=== PATIENT | male | born 1960 | race Caucasian/White ===

== ENCOUNTER 2024-02-03 14:19 | Inpatient (IN) ==
[2024-02-03] MEDS: SODIUM CHLORIDE 0.9% 500 ML IV STA (14:55)
[2024-02-03 14:59] LABS: Basophils # (auto) 0.03 K/uL (0.00-0.20); Basophils % (auto) 0.3 %; Eosinophils # (auto) 0.08 K/uL (0.00-0.50); Eosinophils % (auto) 0.9 %; Hematocrit (blood only) 35.9 % (42.0-52.0); Hemoglobin 11.6 g/dl (14.0-18.0); Immature Granulocytes # (auto) 0.04 K/uL (0.01-0.20); Immature Granulocytes % (auto) 0.4 %; Lymphocytes # (auto) 1.44 K/uL (1.20-3.40); Lymphocytes % (auto) 16.2 %; Mean Corpuscular Hemoglobin 27.8 pg (25.0-34.0); Mean Corpuscular Hgb Conc 32.3 g/dL (32.0-36.0); Mean Corpuscular Volume 85.9 fL (80.0-100.0); Mean Platelet Volume 10.2 fL (9.4-12.4); Monocytes # (auto) 1.13 K/uL (0.11-0.59); Monocytes % (auto) 12.7 %; Neutrophils # (auto) 6.18 K/uL (1.40-6.50); Neutrophils % (auto) 69.5 %; Platelet Count 229 K/uL (130-400); RDW Standard Deviation 44.1 fL (36.4-46.3); Red Blood Count 4.18 M/uL (4.70-6.10)
[2024-02-03 15:25] LABS: Albumin Globulin Ratio 1.3 (0.9-2); Albumin Level 4.1 gm/dl (3.4-5.0); BUN Creatinine Ratio 19.5 (10-20); Bilirubin,Total 0.4 mg/dl (0.2-1.0); Calcium 9.7 mg/dl (8.6-10.3); Creatinine Clr Calc Pharmacy 72.5 ml/min; Est GFR (African American) 69.1 ml/min; Est GFR (Non-African American) 59.6 ml/min; Globulin 3.2 gm/dl (2.5-4.0); Potassium 4.4 mmol/L (3.5-5.1); Total Protein 7.3 gm/dl (6.0-8.3)
[2024-02-03] MEDS: OPTIRAY 320 100ml IV ONE (15:29)
--- NOTE | 2024-02-03 16:00 | CT Scan Report ---
CT abd pelvis IV con only CLINICAL HISTORY: gall stones, pain TECHNIQUE: Helical axial images of the abdomen and pelvis were obtained and displayed. Automated dose lowering techniques and/or adjustment according to patient size were utilized for this exam. This e xam was performed with intravenous contrast. CT DOSE: 1495.51 mGy.cm COMPARISON: None available at the time of this dictation. FINDINGS: Lower chest: Focal airspace opacities are seen. There is bronchial wall thickening. Liver: Unremarkable. No focal lesions are seen. Gallbladder and biliary tree: No calcified gallstones. Normal caliber wall. No intra- or extrahepatic biliary ductal dilation. Pancreas: Unremarkable, no focal lesions. Spleen: Unremarkable. Adrenals: Unremarkable. Kidneys and ureters: A 4 mm obstructive stone is in the right proximal ureter with associated hydrone phrosis. Nonobstructive stones are seen bilaterally. Bladder: Limited evaluation due to underdistention. Reproductive organs: Unremarkable. Bowel: Diverticulosis is seen without diverticulitis. The appendix is normal. Lymph nodes Retroperitoneal: Unremarkable. Pelvic: Unremarkable. Mesenteric: Unremarkable. Peritoneum: Normal. Vessels: Atherosclerotic calcifications are seen. Abdominal wall: Bilateral fat-containing inguinal hernias are seen. Bones: Degenerative changes in the visualized spine. IMPRESSION: 1. Obstructive stone is seen in the right proximal ureter with associated hydronephrosis. 2. Diverticulosis without diverticulitis. ACT 112: Negative or not required by law. Electronically signed by: George Davis M.D. 02/03/2024 3:59 PM
[2024-02-03 16:01] LABS: Appearance Urine Clear (Clear); Bacteria Urine Automated Negative (Negative); Bilirubin Urine Negative (Negative); Blood Urine 1+ (Negative); Color Urine Dark Yellow; Glucose Urine UA Negative (Negative); Ketones Urine Negative (Negative); Leukocyte Esterase Urine Negative (Negative); Nitrite Urine Negative (Negative); Protein Urine Negative (Negative); Specific Gravity Urine 1.025 (1.000-1.030); Urobilinogen Urine Negative (Negative); pH Urine 5.5 (4.5-7.5)
--- NOTE | 2024-02-03 16:03 | XRay Report ---
XR chest 1V portable HISTORY: hypotension, abd pain COMPARISON: Chest 11/16/2018. FINDINGS: No pneumothorax. No pleural effusions. The cardiac silhouette is normal in size. No evidenc e for pulmonary edema. Degenerative changes within the shoulders. No acute fractures. There is a new left basilar airspace opacity. This likely represents a pneumonia. IMPRESSION: A new left basilar airspace opacity likely representing a pneumonia. 1-2 month chest x-ray follow-up recommended to ensure resolution. ACT 112: Negative or not required by law. Electronically signed by: Vidal Soto M.D. 02/03/2024 4:02 PM
[2024-02-03 16:12] LABS: Troponin I High Sensitivity 4.7 pg/ml (0-20)
--- NOTE | 2024-02-03 16:33 | Emergency Department Note ---
Impression & Plan Pneumonia, Ureterolithiasis ED Provider Note NAME: LELE CARROLL Jr AGE: 63 SEX: Male INFORMANT: Patient and significant other ED PROVIDER(S): Pablo Forde MD CHIEF COMPLAINT: Low blood pressure, right flank pain, referred by cardiology PLAN: Disposition: Admitted Outpatient prescription management: none Referral: None MEDICAL DECISION MAKING: Patient presented and was evaluated. CT imaging was ordered. Blood work obtained. Patient had blood cultures done as well as a bio fire test. Chest x- ray was concerning for infiltrate consistent with pneumonia. Patient has had a cough. Patient was given IV Rocephin and doxycycline after discussion with ED pharmacist. Patient was hydrated. Patient does have a right-sided kidney stone with hydro. Laboratory testing was otherwise unremarkable. Patient will need further management in the hospital. Lactate was noted to be negative. Consultation was [facility] with the [facility]. Patient was evaluated in the ER admitted for further management. Care/management discussed with: senior online marketing manager, ED pharmacist Level of care consideration(s): After review of the information above and other included data, I feel the patient requires escalation of care to admission Triage Nursing notes: reviewed and agree them. Vital Signs: reviewed and remarkable for no significant abnormalities Additional History obtained from: Patient significant other. She notes he has had to have a cough for about 3 days. Chronic Medical/Social Conditions affecting care: Cardiomyopathy Prior/ Outside/ External records reviewed: none Differential Diagnosis: Renal colic, UTI, appendicitis, diverticulitis, mesenteric ischemia, aortic pathology, infections, inflammatory bowel disease, PUD, biliary pathology, pneumonia, cardiac sources, sepsis as well as other pathologies. Diagnostics, independently interpreted by me: ECG: none Cardiac Monitoring: Cardiac monitoring ordered by me: The patient was placed on continuous cardiac monitoring and observed. It revealed a normal sinus rhythm at 80 beats per minute without ectopy or evidence of dysrhythmia. Medical decision rules: none Imaging studies: Chest x-ray shows left lower lobe infiltrate. CT scan abdomen pelvis reveals right ureteral stone. HPI: 63 year old Male arrives for evaluation of low blood pressure and right flank pain. Patient was in the cardiology clinic and was undergoing preop evaluation. He has a known right-sided kidney stone. Patient has had pulmonary symptoms of cough and feeling feverish for the last 3 days. He states he had a negative workup 2 days ago at [facility]. Patient was in the office and cardiology was concerned about low blood pressure. Patient was admitting to night sweats. He was referred to the ER for further evaluation and admission. Pt denies LOC, headache, visual changes, neck pain, chest pain, breathing difficulties, nausea, vomiting, melena, hematochezia, urinary symptoms, numbness, weakness, lymphadenopathy, rash, or other complaints. PAST MEDICAL HISTORY: See Below, cardiomyopathy PAST SURGICAL HISTORY: See Below, SOCIAL HISTORY: See Below, non-smoker HOME MEDICATIONS: See Below ALLERGIES: See Below VITALS: See Below PHYSICAL EXAMINATION: GENERAL: Awake, alert, well-appearing, in no distress HENT: Normocephalic, atraumatic. Oropharynx unremarkable. EYES: Normal conjunctiva. Sclera non-icteric. NECK: Inspection normal. Non-tender. Supple. No nuchal rigidity. FROM. No masses. RESPIRATORY: Rhonchi and few crackles noted in both bases. Worse on the left. Normal respiratory effort. CARDIAC: Normal rate. Normal rhythm. No murmurs. No rubs. Extremities warm and well perfused. Pulses equal. No JVD. GI: Soft, non-distended. Right flank tenderness to palpation. No rebound or guarding. No masses. RECTAL: Deferred. MUSCULOSKELETAL: Atraumatic. Chest examination reveals no tenderness. The back is symmetrical on inspection without obvious abnormality. There is no CVA tenderness to palpation. No joint edema. LOWER EXTREMITIES: Calves are equal size bilaterally and non-tender. No edema. No discoloration. NEURO: Normal sensorium. No sensory or motor deficits noted. SKIN: No rash or jaundice noted. 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 Dyslipidemia Ureterolithiasis Surgical History H/O laminectomy History of rotator cuff surgery Family History Other Diabetes Heart disease Social History Smoking Status: Former smoker Second Hand Exposure: No; Do You Dip or Chew Tobacco: No; Hx Alcohol Use: No Hx Substance Use: No Preferred Language: Kazakh Communication Ability: Effective Front End Ui Developer Required: No Beliefs That Will Affect Care: None Current Living Situation: Spouse Other Information That Helps Us Care for You: No Feels Safe at Home: Yes Safety Concerns: Feels Safe At This Time Assistive Devices: Glasses Allergies Allergies Allergy/AdvReac Type Severity Reaction Status Date / Time acetaminophen [From Vicodin] Allergy Intermediate Gastrointestinal Verified 11/16/18 15:07 Upset atorvastatin [From Lipitor] Allergy Intermediate MUSCLE Verified 11/16/18 15:07 ACHES hydrocodone [From Vicodin] Allergy Intermediate Gastrointestinal Verified 11/16/18 15:07 Upset simvastatin [From Zocor] Allergy Intermediate MUSCLE Verified 11/16/18 15:07 ACHES Home Meds Home Medications Medication Instructions Recorded Confirmed aspirin 81 mg tablet,delayed 81 mg PO DAILY 11/16/18 02/03/24 release (Aspir-) carvedilol 3.125 mg tablet 3.125 mg PO BID 11/16/18 02/03/24 cyanocobalamin (vitamin B-12) 1,000 mcg PO DAILY 11/16/18 02/03/24 1,000 mcg tablet (Vitamin B-12) fenofibrate nanocrystallized 145 145 mg PO QAM 11/16/18 02/03/24 mg tablet lisinopril 10 mg tablet 10 mg PO QAM 11/16/18 02/03/24 omega [id number]-[id number]-[id number]-fish oil 1,000 mg 0 mg PO DAILY 11/16/18 02/03/24 (120 mg-180 mg) capsule (Fish Oil) rosuvastatin 5 mg tablet 20 mg PO QAM 11/16/18 02/03/24 Vitamin C See Rx Instructions .Route .COMPLEX 02/03/24 02/03/24 Vitamin D3 See Rx Instructions .Route .COMPLEX 02/03/24 02/03/24 famotidine 20 mg tablet 20 mg PO BID 02/03/24 02/03/24 ondansetron 4 mg disintegrating 4 mg PO Q8H PRN N/V 02/03/24 02/03/24 tablet oxycodone-acetaminophen 5 mg-325 1 tab PO Q4H PRN Pain, Severe 02/03/24 02/03/24 mg tablet sucralfate 1 gram tablet 1 g PO TID 02/03/24 02/03/24 tamsulosin 0.4 mg capsule 0.4 mg PO DAILY 02/03/24 02/03/24 Results & Data (ED) Vital Signs Vital Signs - 24 hr 02/03/24 14:24 02/03/24 15:45 02/03/24 15:45 Temperature 35.9 C L Temperature Source Temporal Artery Scan Pulse Rate 83 76 Pulse Rate [Apical] 77 Pulse Rhythm Regular Respiratory Rate 16 18 Respiratory Effort / Characteristics Non-Labored Spontaneous Non-Labored Respiratory Depth Normal Normal Respiratory Pattern Regular Blood Pressure 115/66 Blood Pressure [Right Arm] 116/77 Blood Pressure Mean 82 Blood Pressure Mean [Right Arm] 90 Pulse Oximetry 97 97 97 Oxygen Delivery Method Room Air Room Air Room Air Sepsis Recent Fever Within 48 Hours No Sepsis New/Unexplained Change in Mental Status N/A Sepsis Action Taken by Nursing No Action Required 02/03/24 16:57 02/03/24 17:14 Temperature Temperature Source Pulse Rate 76 Pulse Rate [Apical] 78 Pulse Rhythm Respiratory Rate 18 Respiratory Effort / Characteristics Non-Labored Respiratory Depth Normal Respiratory Pattern Blood Pressure Blood Pressure [Right Arm] 103/48 L Blood Pressure Mean Blood Pressure Mean [Right Arm] 66 Pulse Oximetry 96 Oxygen Delivery Method Room Air Sepsis Recent Fever Within 48 Hours Sepsis New/Unexplained Change in Mental Status Sepsis Action Taken by Nursing Laboratory Data 02/03/24 14:41 02/03/24 14:41 Lab Results 02/03/24 02/03/24 02/03/24 Range/Units 14:41 15:23 16:10 WBC 8.90 (4.8-10.8) K/ul RBC 4.18 L (4.70-6.10) M/uL Hgb 11.6 L (14.0-18.0) g/dl Hct 35.9 L (42.0-52.0) % MCV 85.9 (80.0-100.0) fL MCH 27.8 (25.0-34.0) pg MCHC 32.3 (32.0-36.0) g/dL RDW Std Deviation 44.1 (36.4-46.3) fL RDW Coeff of Johny 14.0 (11.5-14.5) % Plt Count 229 (130-400) K/uL MPV 10.2 (9.4-12.4) fL Immature Gran % (Auto) 0.4 % Neut % (Auto) 69.5 % Lymph % (Auto) 16.2 % [place] % (Auto) 12.7 % Eos % (Auto) 0.9 % Baso % (Auto) 0.3 % Neut # (Auto) 6.18 (1.40-6.50) K/uL Lymph # (Auto) 1.44 (1.20-3.40) K/uL [place] # (Auto) 1.13 H (0.11-0.59) K/uL Eos # (Auto) 0.08 (0.00-0.50) K/uL Baso # (Auto) 0.03 (0.00-0.20) K/uL Immature Gran # (Auto) 0.04 (0.01-0.20) K/uL Sodium 141 (136-145) mmol/L Potassium 4.4 (3.5-5.1) mmol/L Chloride 106 (98-107) mmol/L Carbon Dioxide 28 (21-32) mmol/L Anion Gap 7 (3-11) BUN 25 H (6-23) mg/dl Creatinine 1.28 (0.6-1.4) mg/dl Est Cr Clr Drug Dosing 72.5 ml/min Est GFR ( Amer) 69.1 ml/min Est GFR (Non-Af Amer) 59.6 ml/min BUN/Creatinine Ratio 19.5 (10-20) Glucose 79 (70-99(Fasting)) mg/dl Lactate 0.7 (0.4-2.0) mmol/L Calcium 9.7 (8.6-10.3) mg/dl Total Bilirubin 0.4 (0.2-1.0) mg/dl AST 17 (13-39) U/L ALT 24 (7-52) U/L Alkaline Phosphatase 46 (34-104) U/L Troponin I High Sens 4.7 (0-20) pg/ml Total Protein 7.3 (6.0-8.3) gm/dl Albumin 4.1 (3.4-5.0) gm/dl Globulin 3.2 (2.5-4.0) gm/dl Albumin/Globulin Ratio 1.3 (0.9-2) Lipase 21 (11-82) U/L Procalcitonin 0.09 (0-0.5) ng/ml Urine Color Dark Yellow Urine Appearance Clear (Clear) Urine pH 5.5 (4.5-7.5) Ur Specific [place] 1.025 (1.000-1.030) Urine Protein Negative (Negative) Urine Glucose (UA) Negative (Negative) Urine Ketones Negative (Negative) Urine Blood 1+ H (Negative) Urine Nitrite Negative (Negative) Urine Bilirubin Negative (Negative) Urine Urobilinogen Negative (Negative) Ur Leukocyte Esterase Negative (Negative) Urine WBC (Auto) 1-5 (0-5) /hpf Urine RBC (Auto) 10-30 H (0-4) /hpf U Hyaline Cast (Auto) 1-5 (0-5) /lpf U Epithel Cells (Auto) 5-10 H (0-5) /lpf Urine Bacteria (Auto) Negative (Negative) Administered Medications Carvedilol (Carvedilol 3.125 Mg Tab) 3.125 mg PO BID LAISHA Stop: 03/04/24 21:29 Last Admin: 02/03/24 22:22 Dose: 3.125 mg Documented By: MED Guaifenesin (Guaifenesin 600 Mg Tabcr) 600 mg PO Q12 LAISHA Stop: 03/04/24 21:19 Last Admin: 02/03/24 22:21 Dose: 600 mg Documented By: MED Sodium Chloride (Nss) 500 mls @ 100 mls/hr IV .Q5H LAISHA Stop: 02/04/24 02:13 Last Admin: 02/03/24 22:21 Dose: 100 mls/hr Documented By: MED Sucralfate (Sucralfate 1 Gm Tab) 1 gm PO TID LAISHA Stop: 03/04/24 21:24 Last Admin: 02/03/24 22:22 Dose: 1 gm Documented By: MED Discontinued Medications Sodium Chloride (Nss) 500 mls @ 999 mls/hr IV .Q31M STA Stop: 02/03/24 15:23 Last Infusion: 02/03/24 15:49 Dose: Infused Documented By: Admin: 02/03/24 14:55 Dose: 999 mls/hr Documented By: MWS Ceftriaxone Sodium (Rocephin) 2,000 mg in 50 mls @ 100 mls/hr IV NOW STA Stop: 02/03/24 16:43 Last Infusion: 02/03/24 17:14 Dose: Infused Documented By: Admin: 02/03/24 16:40 Dose: 100 mls/hr Documented By: JOSE Doxycycline Hyclate 100 mg/ (Dextrose) 100 mls @ 50 mls/hr IV NOW STA Stop: 02/03/24 18:13 Last Admin: 02/03/24 17:15 Dose: 50 mls/hr Documented By: JOSE Ioversol (Optiray 320 100ml) 90 ml IV ONCE ONE Stop: 02/03/24 15:30 Last Admin: 02/03/24 15:29 Dose: 90 ml Documented By: CHIP Imaging Data Radiologist's Impression: Abdomen/Pelvis CT 02/03/24 14:47 CT abd pelvis IV con only CLINICAL HISTORY: gall stones, pain TECHNIQUE: Helical axial images of the abdomen and pelvis were obtained and displayed. Automated dose lowering techniques and/or adjustment according to patient size were utilized for this exam. This exam was performed with intravenous contrast. CT DOSE: 1495.51 mGy.cm COMPARISON: None available at the time of this dictation. FINDINGS: Lower chest: Focal airspace opacities are seen. There is bronchial wall thickening. Liver: Unremarkable. No focal lesions are seen. Gallbladder and biliary tree: No calcified gallstones. Normal caliber wall. No intra- or extrahepatic biliary ductal dilation. Pancreas: Unremarkable, no focal lesions. Spleen: Unremarkable. Adrenals: Unremarkable. Kidneys and ureters: A 4 mm obstructive stone is in the right proximal ureter with associated hydronephrosis. Nonobstructive stones are seen bilaterally. Bladder: Limited evaluation due to underdistention. Reproductive organs: Unremarkable. Bowel: Diverticulosis is seen without diverticulitis. The appendix is normal. Lymph nodes Retroperitoneal: Unremarkable. Pelvic: Unremarkable. Mesenteric: Unremarkable. Peritoneum: Normal. Vessels: Atherosclerotic calcifications are seen. Abdominal wall: Bilateral fat-containing inguinal hernias are seen. Bones: Degenerative changes in the visualized spine. IMPRESSION: 1. Obstructive stone is seen in the right proximal ureter with associated hydronephrosis. 2. Diverticulosis without diverticulitis. ACT 112: Negative or not required by law. Electronically signed by: George Davis M.D. 02/03/2024 3:59 PM Chest X-Ray 02/03/24 15:41 XR chest 1V portable HISTORY: hypotension, abd pain COMPARISON: Chest 11/16/2018. FINDINGS: No pneumothorax. No pleural effusions. The cardiac silhouette is normal in size. No evidence for pulmonary edema. Degenerative changes within the shoulders. No acute fractures. There is a new left basilar airspace opacity. This likely represents a pneumonia. IMPRESSION: A new left basilar airspace opacity likely representing a pneumonia. 1-2 month chest x-ray follow-up recommended to ensure resolution. ACT 112: Negative or not required by law. Electronically signed by: Vidal Soto M.D. 02/03/2024 4:02 PM Discharge Plan Visit Data Chief Complaint: Referred by Doctor Stated Complaint: KIDNEY STONES, GALL STONES, LOW BP ED Provider: Pablo Forde Discharge Problem: Pneumonia, Ureterolithiasis Patient Disposition: Admitted As Inpatient Discharge Instructions Interventions: ED Discharge Assessment Last Done: 02/03/24 18:58
[2024-02-03] MEDS: cefTRIAXone SODIUM 2,000 MG/50 ML BAG IV STA (16:40)
[2024-02-03] MEDS: DOXYCYCLINE HYCLATE 100 MG in DEXTROSE 5% MINI-B 100 ML IV STA (17:15)
--- NOTE | 2024-02-03 17:55 | History & Physical Report ---
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 Follows with [facility] Has had return to near normal LV systolic function with recent TTE with EF 45- 49%, mild aortic valve stenosis Appears dry on admission with borderline low BP - giving add'l 500ml NSS fluid overnight Monitor volume status closely Obstructing ureteral stone Ongoing renal colic pain over the past 7-10 days, seen in [place] [facility] and [facility] Following with [facility] Dr Kellogg with plans for lithotripsy Went to [facility] for clearance today - was cleared from cardiac perspective but directed to ED for further infectious dz workup as above CT abd/pelvis with obstructive stone is seen in the right proximal ureter with associated hydronephrosis Continue Flomax HTN BP on lower side today, currently 103/48 Continue carvedilol, hold lisnopril for now (given Cr 1.2, increased from baseline ~1) PUD Seen in clinic recently for dyspepsia, belching, e/o cholelithiasis on outpatient imaging Started on Pepcid BID, Carafate on 01/28 DVT Ppx: SCDs for now in case of urologic intervention Code status: FULL PCP: [facility] Dispo: adm to med tele Patient seen in collaboration with Dr. Pantoja. Please see addendum. I spent a total of 75 minutes coordinating, documenting, and providing care for this patient excluding time spent in the performance of separately billed services. 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 Per reviewed outpatient note, patient has been feeling well up until this past Saturday, when he had back pain that radiated into groin and went to [facility] on 01/24, where he was diagnosed with a kidney stone. Was evaluated at [facility] on 01/29 with difficulty urinating but urinalysis not consistent with a UTI, blood cultures without growth to date. Saw Dr. Kellogg of urology on 01/30 with abdominal x-ray revealing right nephrolithiasis and significant colonic fecal material. Presents today feeling progressively worse over the weekend. Poor p.o. intake, feeling lightheaded with movement. Also endorsing night sweats over the past 2 nights. Endorsing diffuse abdominal pain, nausea and dry heaves without emesis. Endorses dysuria and inability to fully empty bladder but denies gross hematuria. Normal bowel movement earlier today. Was noted to be ill-appearing with borderline low blood pressure at cardiology pre-op appointment earlier today and was recommended to come to ED for further evaluation. Recommendation to hold lisinopril, continue carvedilol given hypotension and hold aspirin only if needed for 3-5 days, resuming when safe. Allergies Allergy/AdvReac Type Severity Reaction Status Date / Time acetaminophen [From Vicodin] Allergy Intermediate Gastrointestinal Verified 11/16/18 15:07 Upset atorvastatin [From Lipitor] Allergy Intermediate MUSCLE Verified 11/16/18 15:07 ACHES hydrocodone [From Vicodin] Allergy Intermediate Gastrointestinal Verified 11/16/18 15:07 Upset simvastatin [From Zocor] Allergy Intermediate MUSCLE Verified 11/16/18 15:07 ACHES Home Medications Medication Instructions Recorded Confirmed Type aspirin 81 mg tablet,delayed 81 mg PO DAILY 11/16/18 02/03/24 History release (Aspir-) carvedilol 3.125 mg tablet 3.125 mg PO BID 11/16/18 02/03/24 History cyanocobalamin (vitamin B-12) 1,000 mcg PO DAILY 11/16/18 02/03/24 History 1,000 mcg tablet (Vitamin B-12) fenofibrate nanocrystallized 145 145 mg PO QAM 11/16/18 02/03/24 History mg tablet lisinopril 10 mg tablet 10 mg PO QAM 11/16/18 02/03/24 History omega 5-tcw-zun-fish oil 1,000 mg 0 mg PO DAILY 11/16/18 02/03/24 History (120 mg-180 mg) capsule (Fish Oil) rosuvastatin 5 mg tablet 20 mg PO QAM 11/16/18 02/03/24 History Vitamin C See Rx Instructions .Route .COMPLEX 02/03/24 02/03/24 History Vitamin D3 See Rx Instructions .Route .COMPLEX 02/03/24 02/03/24 History famotidine 20 mg tablet 20 mg PO BID 02/03/24 02/03/24 History ondansetron 4 mg disintegrating 4 mg PO Q8H PRN N/V 02/03/24 02/03/24 History tablet oxycodone-acetaminophen 5 mg-325 1 tab PO Q4H PRN Pain, Severe 02/03/24 02/03/24 History mg tablet sucralfate 1 gram tablet 1 g PO TID 02/03/24 02/03/24 History tamsulosin 0.4 mg capsule 0.4 mg PO DAILY 02/03/24 02/03/24 History Past Med/Surg History Medical History Familial cardiomyopathy HTN (hypertension) 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 Dyslipidemia Ureterolithiasis Surgical History H/O laminectomy History of rotator cuff surgery Family History Other Diabetes Heart disease Social History Smoking Status: Former smoker Second Hand Exposure: No; Do You Dip or Chew Tobacco: No; Hx Alcohol Use: No Hx Substance Use: No Preferred Language: Citizen Of [place] Communication Ability: Effective Cleat Feeder Required: No Beliefs That Will Affect Care: None Current Living Situation: Spouse Feels Safe at Home: Yes Assistive Devices: Glasses Review of Systems Review of Systems: At least ten systems reviewed and negative except as noted in the HPI. Physical Exam Physical Exam: General Appearance: WD/WN, vitals as above, NAD, sitting up in bed, pleasant, conversing easily Head: normocephalic, atraumatic Eyes: normal inspection, PERRL, conjunctivae normal, anicteric sclerae ENT: external ear and nose normal, oropharynx normal Neck: normal visual inspection, trachea midline, no thyromegaly Respiratory: normal respiratory effort, rales left base, otherwise clear to auscultation, no wheezing. No accessory muscle use Cardiovascular: regular rate, rhythm,+ RM, normal peripheral pulses, no BLE edema. Vessels: no JVD Chest: normal inspection of chest Abdomen/GI: normal bowel sounds, soft, nontender, no hepatosplenomegaly Extremities/Musculoskeletal: no cyanosis or clubbing, extremities motor strength 5/5 Neurologic: PERRL, EOMI, accommodation nl, no face palsy, no dysarthria, CN's II-XI intact bilaterally and moves all extremities Psychiatric: A+Ox3, euthymic affect Skin: no rashes, normal color, warm/dry Results & Data Results & Data Vital Signs (Past 12 Hours) Vital Signs Temp Pulse Pulse Resp BP BP Pulse Ox 02/03/24 17:14 78 18 103/48 L 96 02/03/24 16:57 76 02/03/24 15:45 76 97 02/03/24 15:45 77 18 116/77 97 02/03/24 14:24 35.9 C L 83 16 115/66 97 O2 Del Method 02/03/24 17:14 Room Air 02/03/24 16:57 02/03/24 15:45 Room Air 02/03/24 15:45 Room Air 02/03/24 14:24 Room Air Laboratory Results Short CBC 02/03/24 Range/Units 14:41 WBC 8.90 (4.8-10.8) K/ul Hgb 11.6 L (14.0-18.0) g/dl Hct 35.9 L (42.0-52.0) % Plt Count 229 (130-400) K/uL BMP 02/03/24 14:41 Sodium 141 Potassium 4.4 Chloride 106 Carbon Dioxide 28 BUN 25 H Creatinine 1.28 Glucose 79 Calcium 9.7 Liver Function 02/03/24 Range/Units 14:41 Total Bilirubin 0.4 (0.2-1.0) mg/dl AST 17 (13-39) U/L ALT 24 (7-52) U/L Alkaline Phosphatase 46 (34-104) U/L Albumin 4.1 (3.4-5.0) gm/dl Urine 02/03/24 Range/Units 15:23 Urine Color Dark Yellow Urine Appearance Clear (Clear) Urine pH 5.5 (4.5-7.5) Ur Specific Brandon 1.025 (1.000-1.030) Urine Protein Negative (Negative) Urine Glucose (UA) Negative (Negative) Diagnostic Findings Abdomen/Pelvis CT 02/03/24 14:47 CT abd pelvis IV con only CLINICAL HISTORY: gall stones, pain TECHNIQUE: Helical axial images of the abdomen and pelvis were obtained and displayed. Automated dose lowering techniques and/or adjustment according to patient size were utilized for this exam. This exam was performed with intravenous contrast. CT DOSE: 1495.51 mGy.cm COMPARISON: None available at the time of this dictation. FINDINGS: Lower chest: Focal airspace opacities are seen. There is bronchial wall thickening. Liver: Unremarkable. No focal lesions are seen. Gallbladder and biliary tree: No calcified gallstones. Normal caliber wall. No intra- or extrahepatic biliary ductal dilation. Pancreas: Unremarkable, no focal lesions. Spleen: Unremarkable. Adrenals: Unremarkable. Kidneys and ureters: A 4 mm obstructive stone is in the right proximal ureter with associated hydronephrosis. Nonobstructive stones are seen bilaterally. Bladder: Limited evaluation due to underdistention. Reproductive organs: Unremarkable. Bowel: Diverticulosis is seen without diverticulitis. The appendix is normal. Lymph nodes Retroperitoneal: Unremarkable. Pelvic: Unremarkable. Mesenteric: Unremarkable. Peritoneum: Normal. Vessels: Atherosclerotic calcifications are seen. Abdominal wall: Bilateral fat-containing inguinal hernias are seen. Bones: Degenerative changes in the visualized spine. IMPRESSION: 1. Obstructive stone is seen in the right proximal ureter with associated hydronephrosis. 2. Diverticulosis without diverticulitis. ACT 112: Negative or not required by law. Electronically signed by: Geogre Davis M.D. 02/03/2024 3:59 PM Chest X-Ray 02/03/24 15:41 XR chest 1V portable HISTORY: hypotension, abd pain COMPARISON: Chest 11/16/2018. FINDINGS: No pneumothorax. No pleural effusions. The cardiac silhouette is norm al in size. No evidence for pulmonary edema. Degenerative changes within the shoulders. No acute fractures. There is a new left basilar airspace opacity. This likely represents a pneumonia. IMPRESSION: A new left basilar airspace opacity likely representing a pneumonia. 1-2 month chest x-ray follow-up recommended to ensure resolution. ACT 112: Negative or not required by law. Electronically signed by: Vidal Soto M.D. 02/03/2024 4:02 PM Supervising Physician Co-Signing Physician Notes Pt was seen and examined by myself, Demetra Pantoja MD on the day of service. Care was coordinated with Larissa Canales PA-C. 63yoM presenting with concern for BP after being seen by Cardiology today. Resting comfortably in bed on exam. States that he was being cleared for a urological procedure on February 09 when he was sent over for further evaluation. RRR, breath sounds decreased bilaterally. Biofire negative Chest XRAY concerning for pneumonia, also noted at bases on CT abd/pelvis- recommending follow up with chest XR in [address] abd/pelvis also noting 4mm obstructing stone with associated hydronephrosis CAP-Rocephin + Doxy Obstructive uropathy with hydronephrosis-urology consulted in house, pain control, appreciate recs. Otherwise as above. I spent a total [id number] coordinating, documenting, and providing care for this patient excluding time spent in the performance of separately billed services
[2024-02-03 18:23] LABS: Adenovirus PCR Not Detected (NotDetected); Bordetella parapertussis PCR Not Detected (NotDetected); Bordetella pertussis PCR Not Detected (NotDetected); Chlamydia pneumoniae PCR Not Detected (NotDetected); Coronavirus 229E PCR Not Detected (NotDetected); Coronavirus CoV-2 (COVID19)PCR Not Detected (NotDetected); Coronavirus HKU1 PCR Not Detected (NotDetected); Coronavirus NL63 PCR Not Detected (NotDetected); Coronavirus OC43PCR Not Detected (NotDetected); Human Metapneumovirus PCR Not Detected (NotDetected); Influenza A PCR Not Detected (NotDetected); Influenza B PCR Not Detected (NotDetected); Mycoplasma pneumoniae PCR Not Detected (NotDetected); Parainfluenza Virus 1 PCR Not Detected (NotDetected); Parainfluenza Virus 2 PCR Not Detected (NotDetected); Parainfluenza Virus 3 PCR Not Detected (NotDetected); Parainfluenza Virus 4 PCR Not Detected (NotDetected); Respiratory Syncytial VirusPCR Not Detected (NotDetected); Rhinovirus/Enterovirus PCR Not Detected (NotDetected)
[2024-02-03] MEDS ORDERED: POLYETHYLENE (MIRALAX) 17 GM PACK PO PRN (19:13)
[2024-02-03] MEDS ORDERED: ONDANSETRON INJ 2 MG/ML 2 ML VIAL IV PRN (19:13)
--- NOTE | 2024-02-03 20:11 | Urology Consultation ---
Date of Consultation February 03, 2024 Assessment & Plan (1) Ureterolithiasis: The patient has been admitted on the hospitalist service. From a urologic perspective we recommend the following: Provide analgesics Provide antiemetics The patient does take Flomax as an outpatient would recommend continuous medication Provide IV fluid for hydration It appears as though on the patient's CT scan and chest x-ray he has evidence of pneumonia which could explain some of his presenting symptomatology. He has been placed on antibiotics in the form of doxycycline and Rocephin and this should continue and should be adjusted at the discretion of the primary service At the present time the patient is afebrile, normotensive, not tachycardic. He does not appear toxic in appearance. Due to his underlying pneumonia may be preferable to avoid any cystoscopic intervention. He will be reevaluated in the morning of 02/04/2024 to determine if this is needed, but again and in the setting of underlying pneumonia may be best to not perform any surgical intervention during this hospitalization. Once patient has recovered from his pneumonia he can follow with his outpatient urologist, Dr. Casey Kellogg of [facility] urology History of Present Illness Reason for Consultation: Nephrolithiasis Attending Physician: Demetra Pantoja MD History of Present Illness This is a 63-year-old male who presented to the emergency department secondary to 10 days of right-sided flank pain. He notes that the the right flank pain radiates to the front of his abdomen. He has had nausea without vomiting. He denies any fevers, shakes, or chills. He denies any dysuria or hematuria but does note that he feels as though he cannot empty his bladder completely at times. He notes that he has never had kidney stones prior to this episode, but he does follow with Dr. Casey Kellogg and the patient notes that he was scheduled to have a lithotripsy procedure in [place] on the of this month. Since arrival to the hospital the patient has had labs and imaging which I independent reviewed. CBC revealed white blood cell count platelet count were normal. His hemoglobin and hematocrit are 11.6 and 35.9. Chemistry profile showed sodium and potassium as well as the creatinine were normal. There is a slight elevation of BUN at 25. Urinalysis was not indicative of infection. A CT scan of the abdomen pelvis showed that patient had a 4 mm obstructive right kidney stone in the proximal right ureter with associated hydronephrosis. It is noteworthy to mention that the patient did have some focal airspace opacities in the lower lung mueller concerning for pneumonia. A chest x-ray was ultimately performed that showed a new left basilar airspace opacity felt to represent a pneumonia. In addition to the labs that were noted above the patient did have a bio fire checked and there were no detected viruses. At the time of my interview the patient was resting comfortably in bed and he was no distress. Allergies Allergy/AdvReac Type Severity Reaction Status Date / Time acetaminophen [From Vicodin] Allergy Intermediate Gastrointestinal Verified 11/16/18 15:07 Upset atorvastatin [From Lipitor] Allergy Intermediate MUSCLE Verified 11/16/18 15:07 ACHES hydrocodone [From Vicodin] Allergy Intermediate Gastrointestinal Verified 11/16/18 15:07 Upset simvastatin [From Zocor] Allergy Intermediate MUSCLE Verified 11/16/18 15:07 ACHES Home Medications Medication Instructions Recorded Confirmed Type aspirin 81 mg tablet,delayed 81 mg PO DAILY 11/16/18 02/03/24 History release (Aspir-) carvedilol 3.125 mg tablet 3.125 mg PO BID 11/16/18 02/03/24 History cyanocobalamin (vitamin B-12) 1,000 mcg PO DAILY 11/16/18 02/03/24 History 1,000 mcg tablet (Vitamin B-12) fenofibrate nanocrystallized 145 145 mg PO QAM 11/16/18 02/03/24 History mg tablet lisinopril 10 mg tablet 10 mg PO QAM 11/16/18 02/03/24 History omega 5-agq-hpx-fish oil 1,000 mg 0 mg PO DAILY 11/16/18 02/03/24 History (120 mg-180 mg) capsule (Fish Oil) rosuvastatin 5 mg tablet 20 mg PO QAM 11/16/18 02/03/24 History Vitamin C See Rx Instructions .Route .COMPLEX 02/03/24 02/03/24 History Vitamin D3 See Rx Instructions .Route .COMPLEX 02/03/24 02/03/24 History famotidine 20 mg tablet 20 mg PO BID 02/03/24 02/03/24 History ondansetron 4 mg disintegrating 4 mg PO Q8H PRN N/V 02/03/24 02/03/24 History tablet oxycodone-acetaminophen 5 mg-325 1 tab PO Q4H PRN Pain, Severe 02/03/24 02/03/24 History mg tablet sucralfate 1 gram tablet 1 g PO TID 02/03/24 02/03/24 History tamsulosin 0.4 mg capsule 0.4 mg PO DAILY 02/03/24 02/03/24 History Patient History Surgical History History of rotator cuff surgery Family History Other Family history non-contributory Social History Smoking Status: Former smoker Preferred Language: [place] Feels Safe at Home: Yes Review of Systems Constitutional: no fever Ear, Nose, Mouth, Throat: no hearing loss Respiratory: no cough and no dyspnea Cardiovascular: no chest pain Gastrointestinal: + abdominal pain (Radiating from right f lank) and + nausea; no vomiting Genitourinary: + as per Subjective / HPI Musculoskeletal: + back pain (Right flank) Integumentary: no rash Neurologic: no localized weakness Physical Exam Constitutional: WD/WN, vitals as above Eyes: no conjunctival abnormality ENMT: Ears: no hearing impairment Mouth: no oropharynx abnormality Neck: trachea midline Respiratory: normal respiratory effort; no respiratory distress and no labored breathing Cardiovascular: Rate/Rhythm: regular rate and regular rhythm Gastrointestinal (Abdomen): Abdomen is soft and nontender. There is no rebound tenderness or guarding Musculoskeletal: No calf tenderness Skin: no rashes Neurologic: moves all extremities Psychiatric: A+Ox3, euthymic affect Genitourinary: Slight CVA tenderness with percussion on the right not on the left Results & Data Vital Signs (Past 12 Hours) Vital Signs Temp Pulse Pulse Resp BP BP Pulse Ox 02/03/24 17:14 78 18 103/48 L 96 02/03/24 16:57 76 02/03/24 15:45 76 97 02/03/24 15:45 77 18 116/77 97 02/03/24 14:24 35.9 C L 83 16 115/66 97 O2 Del Method 02/03/24 17:14 Room Air 02/03/24 16:57 02/03/24 15:45 Room Air 02/03/24 15:45 Room Air 02/03/24 14:24 Room Air PG Care Time/CCT Total # of Minutes Spent Total Time Spent with Patient: Total time spent is greater than 50% in coordination of care (as documented) at patient's floor/unit and/or counseling patient: Coding Level of Care Code 41703 OFFICE CONSULT LVL M Diagnoses Ureterolithiasis N20.1
[2024-02-03] MEDS ORDERED: BENZONATATE 100 MG CAPSULE PO PRN (21:16)
[2024-02-03] MEDS ORDERED: oxyCODONE/ACETAMINOPHEN 5mg/325mg TAB PO PRN (21:19)
[2024-02-03] MEDS: guaiFENesin 600 MG TABCR PO SCH (22:21)
[2024-02-03] MEDS: SODIUM CHLORIDE 0.9% 500 ML IV SCH (22:21)
[2024-02-03] MEDS: carvediloL 3.125 MG TAB PO SCH (22:22)
[2024-02-03] MEDS: SUCRALFATE 1 GM TAB PO SCH (22:22)
--- OUTSIDE RECORDS SUMMARY | 2024-02-03 22:34 | External Medical Summary | Summary of Care ---
Author Name Unknown Organization [facility] Address [address] [facility] [place] [address] Phone [phone] Care Team Providers Care Relay Shop Supervisor Name Role Phone Viji Soler DO Primary Care Provider Reason for Visit * Reason Onset Date Comments Advice 01/28/2024 Encounter Details Date Type Department Care Team (Late st Contact Info) Description 01/28/2024 Telephone Family Practice [facility] [place] [address] [facility] [place] [address] Viji Soler DO [address] [facility] [place] [id number] Advice Allergies Active Allergy Reactions Criticality Noted Date Comments Acetaminophen Medium 11/16/2018 Other reaction(s): Gastrointestinal Upset Hydrocodone Medium 11/16/2018 Other reaction(s): Gastrointestinal Upset Gemfibrozil 04/17/2007 myalgias Oxycodone-Acetaminoph en Other (Please comment) 10/16/2017 Headache, nausea, Simvastatin 04/17/2007 myalgias documented as of this encounter (statuses as of 02/03/2024) Medications Medication Sig Dispensed Refills Start Date End Date Status Aspirin 81 MG Tablet Take 1 Tablet by mouth every evening. 0 Active Fenofibrate 134 MG Oral CapsuleIndications: Dyslipidemia, goal to be determined Take 1 Capsule by mouth in the morning. 90 Capsule 3 12/14/2022 Active Lisinopril 10 MG Oral Tablet (Prinivil)Indicatio ns:Familial cardiomyopathy (HCC) TAKE ONE TABLET BY MOUTH EVERY MORNING 90 Tablet 3 03/22/2023 03/21/20 24 Active Rosuvastatin Calcium 20 MG Oral Tablet (Crestor)Indication s:Dyslipidemia, goal to be determined TAKE ONE TABLET BY MOUTH EVERY MORNING 90 Tablet 3 03/22/2023 03/21/20 24 Active Triamcinolone Acetonide 0.1 % External Cream (Aristocort)Indicat ions:Rash and nonspecific skin eruption Apply topically to affected area 2 times a day. x1-2 weeks 15 g 0 06/14/2023 Active Carvedilol 3.125 MG Oral Tablet (Coreg)Indications: Familial cardiomyopathy (HCC) TAKE ONE TABLET BY MOUTH EVERY MORNING AND TAKE ONE TABLET BY MOUTH BEFORE BEDTIME 180 Tablet 3 12/13/2023 12/12/19 25 Active Tamsulosin HCl 0.4 MG Oral Capsule (Flomax) Take 1 Capsule by mouth in the morning. Until stone passes. Drink lots of water. 30 Capsule 0 01/28/2024 Active Ondansetron 4 MG Oral Tablet Disintegrating (Zofran) Place 1 Tablet on tongue every 8 hours as needed for Nausea or Vomiting. dissolve on tongue. 30 Tablet 1 01/28/2024 Active HYDROmorphone HCl 2 MG Oral Tablet (Dilaudid) Take 2 Tablets by mouth every 4 hours as needed for Pain, Severe. 30 Tablet 0 01/28/2024 01/29/20 24 Discontinued HYDROmorphone HCl 2 MG Oral Tablet (Dilaudid) Take 1 Tablet by mouth every 4 hours as needed for Pain, Severe. 30 Tablet 0 01/29/2024 01/29/20 24 Discontinued documented as of this encounter (statuses as of 02/03/2024) Active Problems Problem Noted Date Diagnosed Date Calculus of kidney 01/31/2024 Hypertension goal BP (blood pressure) < 140/90 0 01/21/2020 Prediabetes 12/31/2017 Overview: Per Prediabetes protocol #1 DYSLIPIDEMIA, GOAL TO BE DETERMINED 11/03/2009 Overview: Per Lipid Taxonomy. ADVANCE DIRECTIVE INFORMATION 07/30/2005 Overview: No, Advance Directive brochure offered , patient declined. CLASSICAL MIGRAINE WITHOU MENTION OF INTRACTABLE MIGRAINE 06/09/2002 BURSITIS, right shoulder 04/24/2001 ROTATOR CUFF SYND NOS 04/24/2001 Heart failure, systolic, due to idiopathic cardi omyopathy Familial cardiomyopathy Back disorder documented as of this encounter (statuses as of 02/03/2024) Resolved Problems Problem Noted Date Diagnosed Date Resolved Date MIXED HYPERLIPIDEMIA(aka HYP ERLIPIDEMIA MIXED) 12/29/2004 11/03/2009 Overview: Per Lipid Taxonomy. documented as of this encounter (statuses as of 02/03/2024) Immunizations Name Administration Dates Next Due COVID-19 mRNA, LNP-s, No Pre serve, 2-Dose Series (Moderna) 01/15/2021,12/11/2020 Covid-19, Mrna, Lnp-s, Pf, B ivalent, 30 Mcg, IM, 12 yrs and above (Pfizer) 09/11/2022,10/08/2021 Pneumococcal Conjugate Vacci ne, 20-valent (Pwmppnk23) 10/17/2023 Pneumococcal Polysaccharide PPV23 (Pneumovax) 11/19/2019 Seasonal Influenza, PF, 6 M & above, IM , (FluLaval or Fluzone) 10/17/2023,10/10/2022,09/13/2021,08/24,11/19/2019,08/19/2018,10/16/2017 Seasonal Influenza, Quadriva lent, No Preserve, IM 09/11/2016 Seasonal Influenza, Split, I IV3, With Preserve, Inj 09/10/2013,09/18/2012 TD, Preservative Free 01/21/2020 TDAP (age 11 and older)(Adacel) 03/15/2009 Zoster Vaccine Recombinant (Shingrix) 01/21/2020 ,11/19/2019 documented as of this encounter Social History Tobacco Use Types Packs/Day Years Used Date Smoking Tobacco: Former Cigarettes 1 20 0 02/22/1986 - 02/22/2006 Smokeless Tobacco: Never Alcohol Use Standard Drinks/Week Comments Not Currently 0 (1 standard drink = 0.6 oz pur e alcohol) PHQ-2 Answer Date Recorded PHQ-2 Score 0 01/21/2020 Sex and Gender Information Value Date Recorded Sex Assigned at Not on file Gender Identity Not on file Sexual Orientation Not on file Job Start Date Occupation Industry Not on file Not on file Not on file documented as of this encounter Miscellaneous Notes * Telephone Encounter - King Johnson [facility] - 01/29/2024 9:34 AM EDT Per [facility] the company policy is that they cannot fill any opiate over 50mme/day as initialfill. Based off current sig it comes up at 96mme/day. Pended rx with changed sig so they are able to fill rx. Please approve if appropriate. And route back to me so I can notify patient. Thank you, Santiago Johnson, PharmEdwin Clinical Pharmacist [facility] 01/29/24 9:43 AM [phone] * Telephone Encounter - Sharon Sidhu PHARM Tech - 01/29/2024 9:32 AM EDT [facility] pharmacy called here today stating that the hydromorphone cannot be filled due to the dosage and they also need a dx code along with affected body part. Warm transferred to [facility] Santiago Thank you, Sharon Sidhu [employer] I [facility] ([facility])(formerly Telepharmacy) 01/29/2024,9:34 AM * Telephone Encounter - Dorothy Holder LPN - 01/28/2024 3:18 PM EDT Pt requesting something for pain. Scheduling please assist in getting appt THEA * Telephone Encounter - Milagro Metz OSA - 01/28/2024 2:10 PM EDT Pt went to his Urology appt and was canceled, pt is still in severe pain in groin and back 07/28 constant. Asking for something for pain and a new urologist. The hospital only gave enough meds for 3 days, flomax, oxy, and a med for nausea.. Please advise documented in this encounter Plan of Treatment Upcoming Encounters Date Type Department Care Team (Latest Contact Info) Description 02/03/2024 1:00 PM EDT Office Visit Cardiology, [facility] [address] [place] [address] Rosalio Contreras PA-C [address] [place] [address] 02/11/2024 8:45 AM EDT Hospital Encounter OR [facility], Operating Room, [facility] - 4th Floor [address] [place] [address] Colin Jorge Jr., MD [address] [facility] [address] [place] [address] 02/11/2024 8:45 AM EDT - 02/11/2024 10:00 AM EDT Surgery OR [facility], Operating Room, [facility] - 4th Floor [address] [place] [address] [place] [address] Colin Jorge Jr., MD [address] [place] [address] [place] [address] RIGHT LITHOTRIPSY EXTRACORPOREAL SHOCK WAVE 02/21/2024 8:30 AM EDT Hospital Encounter [facility], Endoscopy Room [facility] [address] [place] [phone] Dahlia Babin MD [address] [place] [address] 02/21/2024 8:30 AM EDT - 02/21/2024 9:00 AM EDT Surgery ENDO [facility], Endoscopy Room [facility] [address] [place] [phone] Dahlia Babin MD [address] [place] [address] COLONOSCOPY FLEXIBLE PROXIMAL DIAGNOSTIC 02/25/2024 9:00 AM EDT Office Visit General Surgery Filiberto Kate [address] [place] [address] [place] [address] Lauryn Mccurdy PA-C [address] [place] [address] [place] [address] 03/11/2024 7:20 AM EDT Office Visit [facility] [place] [address] [facility] [place] [address] Makenzie Phan PA-C [address] [facility] [place] [address] Scheduled Procedures Name Priority Associated Diagnoses Date/Ti me LITHOTRIPSY EXTRACORPOREAL SHOCK WAVE Calculus of kidney 02/11/2024 8:45 AM EDT COLONOSCOPY FLEXIBLE PROXIMA L DIAGNOSTIC History of colon polyps 02/21/2024 8:30 AM EDT Health Maintenance Due Date Last Done Comments Depression Screening 01/20/2021 01/21/2020 COLONOSCOPY-EVERY 5 YRS AGES 18-100 04/03/2022 04/03/2017, 04/03/2017, 02/06/2012 COVID-19 Vaccine ( season) 2023 09/11/2022, 10/08/2021, 01/15/2021, Additional history exists HbA1c 01/16/2025 01/17/2024, 05/19, 05/18/2022, Additional history exists GFR 01/29/2025 01/30/2024, 03/11/2023, 06/14/2023, Additional history exists Albumin/Creatinine Ratio 01/16/2027 01/17/2024 Lipid Panel 01/16/2029 01/17/2024, 05/19, 05/18/2022, Additional history exists DTaP,Tdap,and Td Vaccines (3 - Td or Tdap) 01/20/2030 01/21/2020, 03/15/2009 Zoster Vaccines Completed 01/21/2020, 11/19/2019 Influenza Vaccine (FLU shot) Completed , 10/10/2022, 09/13/2021, Additional history exists Pneumococcal Vaccine: Pediatrics (0 to 5 Years) and At-Risk Patients (6 to 64 Years) Completed 10/17/2023, 11/19/2019 GARDASIL-HPV IMMUNIZATION SERIES Aged Out No longer eligible based on patient's age to complete this topic Hepatitis B Aged Out No longer eligi ble based on patient's age to complete this topic MENINGOCOCCAL (MENACTRA/MENVEO) Aged Out No longer eligible based on patient's age to complete this topic documented as of this encounter Medical Devices Not on filedocumented as of this encounter Additional Health Concerns Infection Onset Date Last Indicated Resolved Time Respiratory Rule-Out 01/30/2024 01/30/2024 024 6:41 PM EDT COVID-19 Rule-Out 01/30/2024 01/30/2024 01/30/2024 6:41 PM EDT documented as of this encounter Care Teams Relay Shop Supervisor Relationship Specialty Start Date End Date Viji Soler DO [address] [place] [address] PCP - General Family Medicine 12/11/11 documented as of this encounter
--- OUTSIDE RECORDS SUMMARY | 2024-02-03 22:35 | External Medical Summary | Summary of Care ---
Author Name Unknown Organization [facility] Address [address] [place] [address] Phone [phone] Care Team Providers Care Forging Dies Final Finisher Name Role Phone JudesimViji DO Primary Care Provider Reason for Visit * Reason Comments Kidney Stone * Auth/Cert Specialty Diagnoses / Procedures Referred By Contac t Referred To Contact [facility] [address] [place] [address] Phone: [phone] Emergency Medicine [facility] [address] [place] [address] Referral ID Status Reason Start Date Expiration Date Visits Re quested Visits Authorized [id number] Encounter Details Date Type Department Care Team (Late st Contact Info) Description 01/30/2024 2:18 PM EDT - 01/30/2024 6:17 PM EDT Emergency [facility] Emergency Department ([facility]) [address] [place] [address] Rashel Jimenez MD [address] [place] [address] Ureterolithiasis (Primary Dx) Discharge Disposition: Home - Self Care Allergies Active Allergy Reactions Criticality Noted Date Comments Acetaminophen Medium 11/16/2018 Other reaction(s): Gastrointestinal Upset Hydrocodone Medium 11/16/2018 Other reaction(s): Gastrointestinal Upset Gemfibrozil 04/17/2007 myalgias Oxycodone-Acetaminoph en Other (Please comment) 10/16/2017 Headache, nausea, Simvastatin 04/17/2007 myalgias documented as of this encounter (statuses as of 01/31/2024) Medications Medication Sig Dispensed Refills Start Date End Date Status Aspirin 81 MG Tablet Take 1 Tablet by mouth every evening. 0 Active Fenofibrate 134 MG Oral CapsuleIndications:Dy slipidemia, goal to be determined Take 1 Capsule by mouth in the morning. 90 Capsule 3 12/14/2022 Active Lisinopril 10 MG Oral Tablet (Prinivil)Indications :Familial cardiomyopathy (HCC) TAKE ONE TABLET BY MOUTH EVERY MORNING 90 Tablet 3 03/22/2023 03/21/2024 Active Rosuvastatin Calcium 20 MG Oral Tablet (Crestor)Indications: Dyslipidemia, goal to be determined TAKE ONE TABLET BY MOUTH EVERY MORNING 90 Tablet 3 03/22/2023 03/21/2024 Active Triamcinolone Acetonide 0.1 % External Cream (Aristocort)Indicatio ns:Rash and nonspecific skin eruption Apply topically to affected area 2 times a day. x1-2 weeks 15 g 0 06/14/2023 Active Carvedilol 3.125 MG Oral Tablet (Coreg)Indications:Fa milial cardiomyopathy (HCC) TAKE ONE TABLET BY MOUTH EVERY MORNING AND TAKE ONE TABLET BY MOUTH BEFORE BEDTIME 180 Tablet 3 12/13/2023 12/12/2024 Active Tamsulosin HCl 0.4 MG Oral Capsule (Flomax) Take 1 Capsule by mouth in the morning. Until stone passes. Drink lots of water. 30 Capsule 0 01/28/2024 Active Ondansetron 4 MG Oral Tablet Disintegrating (Zofran) Place 1 Tablet on tongue every 8 hours as needed for Nausea or Vomiting. dissolve on tongue. 30 Tablet 1 01/28/2024 Active oxyCODONE-Acetaminoph en 5-325 MG Oral Tablet (Percocet) Take 1 Tablet by mouth every 4 hours as needed for Pain, Severe. 30 Tablet 0 01/29/2024 Active Sucralfate 1 GM Oral Tablet (Carafate)Indications :PUD (peptic ulcer disease) Take 1 Tablet by mouth in the morning and 1 Tablet at noon and 1 Tablet in the evening and 1 Tablet before bedtime. 120 Tablet 3 01/29/2024 Active Famotidine 20 MG Oral Tablet (Pepcid)Indications:P UD (peptic ulcer disease) Take 1 Tablet by mouth in the morning and 1 Tablet before bedtime. 60 Tablet 11 01/29/2024 Active documented as of this encounter (statuses as of 01/31/2024) Active Problems Problem Noted Date Diagnosed Date Hypertension goal BP (blood pressure) < 140/90 [...] as of this encounter (statuses as of 01/31/2024) Resolved Problems Problem Noted Date Diagnosed Date Resolved Date MIXED HYPERLIPIDEMIA(aka HYP ERLIPIDEMIA MIXED) 12/29/2004 11/03/2009 Overview: Per Lipid Taxonomy. documented as of this encounter (statuses as of 01/31/2024) Immunizations Name Administration Dates Next Due COVID-19 mRNA, LNP-s, No Pre serve, 2-Dose Series (Moderna) 01/15/2021,12/11/2020 Covid-19, Mrna, Lnp-s, Pf, B ivalent, 30 Mcg, IM, 12 yrs and above (Pfizer) 09/11/2022,10/08/2021 Pneumococcal Conjugate Vacci ne, 20-valent ([id number]) 10/17/2023 Pneumococcal Polysaccharide PPV23 (Pneumovax) 11/19/2019 Seasonal [...] on file documented as of this encounter Last Filed Vital Signs Vital Sign Reading Time Taken Comments Blood Pressure 114/69 01/30/2024 5:06 PM EDT Pulse 89 01/30/2024 5:06 PM EDT Temperature 36.9 C (98.4 F) 01/30/2024 12:37 PM E DT Respiratory Rate 18 01/30/2024 5:06 PM EDT Oxygen Saturation 96% 01/30/2024 12:37 PM EDT Inhaled Oxygen Concentration - - Weight - - Height - - Body Mass Index - - documented in this encounter Discharge Instructions * Discharge Instructions* Rashel Jimenez MD - 01/30/2024 5:55 PM EDT Please follow-up with Dr. Kellogg tomorrow as scheduled. Please continue with all your medications as previously scheduled. We have gotten a viral panel on you, I will call you if there are any abnormal results on that. Please return to the ER in the meantime for any new or worsening symptoms otherwise. documented in this encounter ED Notes * Restricted notes were excluded * Rossi Huitron RN - 01/30/2024 12:34 PM EDT Pt presents to the ED complaining of abd pain. Pt follows up with urology and has a known kidney stone. Increased R flank pain. Reports starts in his R back and radiates to R groin. Reports fevers athome. documented in this encounter Miscellaneous Notes * ED Ct Scan Tech Note - Brittnee Galindo RN - 01/30/2024 6:17 PM EDT Pt verbalized understanding of D/C instructions. Aware to follow up tomorrow. Advised of return precautions. Pt ambualted from ED with steady gait. * ED Ct Scan Tech Note - Kel Fitzgerald RN - 01/30/2024 6:16 PM EDT Discharge instructions provided and pt verbalized understanding. Pt to f/u with urology. documented in this encounter Plan of Treatment Upcoming Encounters Date Type Department Care Team (Latest Contact Info) Description 01/31/2024 8:00 AM EDT Office Visit Urology [facility] Kate [address] [place] [address] Casey Kellogg MD [address] [place] [address] [place] [address] 02/17/2024 9:00 AM EDT Office Visit Cardiology, [facility] [address] [place] [address] Rosalio Contreras PA-C [address] [place] [address] 02/21/2024 8:30 AM EDT Hospital Encounter ENDO [facility], Endoscopy Room [facility] [address] [place] [phone] Dahlia Babin MD [address] [place] [address] 02/21/2024 8:30 AM EDT - 02/21/2024 9:00 AM EDT Surgery ENDO [facility], Endoscopy Room [facility] [address] [place] [phone] Dahlia Babin MD [address] [place] [address] COLONOSCOPY FLEXIBLE PROXIMAL DIAGNOSTIC 03/11/2024 7:20 AM EDT Office Visit [facility] [address] [facility] [place] [address] Makenzie Phan PA-C [address] [facility] [place] [address] Pending Results Name Type Priority Associated Diagnoses Date /Time CULTURE, BLOOD Lab Routine 01/30/2024 2:39 PM EDT CULTURE, BLOOD Lab Routine 01/30/2024 1:43 PM EDT Scheduled Procedures Name Priority Associated Diagnoses Date/Ti me COLONOSCOPY FLEXIBLE PROXIMAL DIAGNOSTIC History of colon polyps 02/21/2024 8:30 AM EDT Health Maintenance Due Date Last Done Comments Depression Screening 01/20/2021 01/21/2020 COLONOSCOPY-EVERY 5 YRS AGES 18-100 04/03/2022 04/03/2017, 04/03/2017, 02/06/2012 COVID-19 Vaccine ( season) 2023 09/11/2022, 10/08/2021, 01/15/2021, Additional history exists HbA1c 01/16/2025 01/17/2024, 05/19, 05/18/2022, Additional history exists GFR 01/29/2025 01/30/2024, 11/2023, 06/14/2023, Additional history exists Albumin/Creatinine Ratio 01/16/2027 [...] Not on filedocumented as of this encounter Procedures Procedure Name Priority Date/Time Associated Diagnosis Comments RESPIRATORY PATHOGEN PANEL, PCR STAT 01/30/2024 5:47 PM EDT US RENAL STAT 01/30/2024 4:03 PM EDT URINALYSIS, REFLEX TO CULTURE STAT 01/30/2024 3:09 PM EDT URINALYSIS, REFLEX TO CULTURE (CUP ONLY) STAT 01/30/2024 3:09 PM EDT URINALYSIS, REFLEX TO CULTURE (NOT FOR NEUTROPENIC PATIENTS) STAT 01/30/2024 3:09 PM EDT CULTURE, BLOOD Routine 01/30/2024 2:39 PM EDT DIFFERENTIAL, AUTOMATED STAT 01/30/2024 1:43 PM EDT CRP (INFLAMMATORY MARKER) STAT 01/30/2024 1:43 PM EDT COMPREHENSIVE METABOLIC PANEL STAT 01/30/2024 1:43 PM EDT CBC STAT 01/30/2024 1:43 PM EDT LACTATE STAT 01/30/2024 1:43 PM EDT CULTURE, BLOOD Routine 01/30/2024 1:43 PM EDT CBC STAT 01/30/2024 1:43 PM EDT EXTRA LIGHT BLUE TOP Routine 01/30/2024 1:40 PM EDT EXTRA TUBES Routine 01/30/2024 1:40 PM EDT documented in this encounter Results * RESPIRATORY PATHOGEN PANEL, PCR (01/30/2024 5:47 PM EDT) [facility] Adenovirus by PCR Negative Negative 024 6:41 PM EDT LABORATORY [facility] Coronavirus 229E by PCR Negative Negative 01/30/2024 6:41 PM EDT LAB[facility]ATORY [facility] Coronavirus HKU1 by PCR Negative Negative 01/30/2024 6:41 PM EDT LAB[facility]ATORY [facility] Coronavirus NL63 by PCR Negative Negative 01/30/2024 6:41 PM EDT LAB[facility]ORY [facility] Coronavirus OC43 by PCR Negative Negative 01/30/2024 6:41 PM EDT LAB[facility]ATORY [facility] Coronavirus SARS-CoV-2 by PCR Negative Negative 01/30/2024 6:41 PM EDT LAB[facility]ORY [facility] Human Metapneumovirus by PCR Negative Negative 01/30/2024 6:41 PM EDT LAB[facility]ORY [facility] Rhinovirus/Enterovi randa by PCR Negative Negative 01/30/2024 6:41 PM EDT LAB[facility] Influenza A Virus by PCR Negative Negative 01/30/2024 6:41 PM EDT LAB[facility] Influenza B Virus by PCR Negative Negative 01/30/2024 6:41 PM EDT LAB[facility] Parainfluenza Virus 1 by PCR Negative Negative 01/30/2024 6:41 PM EDT LAB[facility] Parainfluenza Virus 2 by PCR Negative Negative 01/30/2024 6:41 PM EDT LAB[facility] Parainfluenza Virus 3 by PCR Negative Negative 01/30/2024 6:41 PM EDT LAB[facility] Parainfluenza Virus 4 by PCR Negative Negative 01/30/2024 6:41 PM EDT [facility] Respiratory Syncytial Virus by PCR Negative Negative 01/30/2024 6:41 PM EDT [facility] Bordetella pertussis by PCR Negative Negative 01/30/2024 6:41 PM EDT [facility] Chlamydia pneumoniae by PCR Negative Negative 01/30/2024 6:41 PM EDT [facility] Mycoplasma pneumoniae by PCR Negative Negative 01/30/2024 6:41 PM EDT LAB[facility] Bordetella parapertussis by PCR Negative Negative 01/30/2024 6:41 PM EDT LAB[facility] Comment: The primers that detect Rhinovirus may cross react with some Enterorviruses. The validation of bronchial specimens, tracheal aspirates, and throats for this assay was developed and performance characteristics determined by [employer]. The validation of alternate specimen types has not been cleared or approved by the U.S. Food and Drug Administration (FDA). It has been determined that such clearance or approval is not necessary. Upper Respiratory Mid-turbinate nasal swab / Unknown Non-blood Collection / Unknown 01/30/2024 5:47 PM EDT 01/30/2024 5:53 PM EDT Rashel Jimenez MD LAB MICRO - GENERAL ORDERABLES LABORATORY [address] [address] * US RENAL (01/30/2024 4:03 PM EDT) Anatomical Region Laterality Modality Abdomen, Body Ultrasound 01/30/2024 3:20 PM EDT Impressions 01/30/2024 4:40 PM EDT IMPRESSION: 1. An obstructing 0.7 cm calculus is visualized within proximal right ureter, causing a mild right hydronephrosis. 2. An additional nonobstructing 0.5 cm right renal calculus is noted. 3. Simple small cysts are seen within both kidneys. THIS DOCUMENT HAS BEEN ELECTRONICALLY SIGNED BY DO René KING 01/30/2024 4:40 PM EDT PROCEDURE INFORMATION: Exam: US Retroperitoneal; Complete; Kidneys and Bladder Exam date and time: 01/30/2024 3:20 PM Age: 63 years old Clinical indication: Abdominal pain; Additional info: R flank pain, known kidney stone TECHNIQUE: Imaging protocol: Real-time ultrasound of the retroperitoneum with image documentation. Complete exam focused on the kidneys and bladder. COMPARISON: No relevant prior studies available. FINDINGS: Right kidney: The right kidney measures 13.4 x 7.0 x 6.1 cm. The echotexture is unremarkable. A couple simple appearing cysts are seen within the right kidney the largest measuring 0.9 cm. A nonobstructing 0.5 cm right renal calculus is noted. A 0.7 cm obstructing renal calculus is seen within the proximal right ureter, causing a mild right hydronephrosis. Left kidney: The left kidney measures 12.9 x 4.7 x 6.4 cm. The echotexture is unremarkable. A simple 0.9 x 1.5 x 1.4 cm inferior pole parapelvic cyst is noted. No shadowing renal calculi are seen. No hydronephrosis. Urinary bladder: Unremarkable. No bladder wall thickening is seen. Mild internal echoes are visualized within the bladder, which may be related to small amount of debris versus artifact. Abdominal aorta: The abdominal aorta is nonaneurysmal, measuring to 2.7 cm in maximum diameter, proximally. The prostate gland measures 5.2 x 3.9 x 3.8 cm (volume of 40 cc). Procedure Note Juanita Allen, DO - 01/30/2024 PROCEDURE INFORMATION: Exam: US Retroperitoneal; Complete; Kidneys and Bladder Exam date and time: 01/30/2024 3:20 PM Age: 63 years old Clinical indication: Abdominal pain; Additional info: R flank pain, known kidney stone TECHNIQUE: Imaging protocol: Real-time ultrasound of the retroperitoneum with image documentation. Complete exam focused on the kidneys and bladder. COMPARISON: No relevant prior studies available. FINDINGS: Right kidney: The right kidney measures 13.4 x 7.0 x 6.1 cm. Theechotexture is unremarkable. A couple simple appearing cysts are seen within theright kidney the largest measuring 0.9 cm. A nonobstructing 0.5 cm right renal calculus is noted. A 0.7 cm obstructing renal calculus is seen within the proximal right ureter, causing a mild right hydronephrosis. Left kidney: The left kidney measures 12.9 x 4.7 x 6.4 cm. Theechotexture is unremarkable. A simple 0.9 x 1.5 x 1.4 cm inferior pole parapelvic cystis noted. No shadowing renal calculi are seen. No hydronephrosis. Urinary bladder: Unremarkable. No bladder wall thickening is seen. Mild internal echoes are visualized within the bladder, which may be related to small amount of debris versus artifact. Abdominal aorta: The abdominal aorta is nonaneurysmal, measuring to 2.7cm in maximum diameter, proximally. The prostate gland measures 5.2 x 3.9 x 3.8 cm (volume of 40 cc). IMPRESSION IMPRESSION: 1. An obstructing 0.7 cm calculus is visualized within proximal rightureter, causing a mild right hydronephrosis. 2. An additional nonobstructing 0.5 cm right renal calculus is noted. 3. Simple small cysts are seen within both kidneys. THIS DOCUMENT HAS BEEN ELECTRONICALLY SIGNED BY JUANITA ALLEN DO Rashel Jimenez MD RAD ULTRASOUND * URINALYSIS, REFLEX TO CULTURE (01/30/2024 3:09 PM EDT) Color, Urine Yellow Light Yellow, Yellow, Dark Yellow 01/30/2024 3:34 PM EDT [facility] Clarity, Urine Clear Clear 01/30/2024 3:34 PM EDT [facility] Glucose, Urine Negative Negative mg/dL 01/30/2024 3:34 PM EDT [facility] Bilirubin, Urine Negative Negative 01/30/2024 3:34 PM EDT [facility] Ketone, Urine Negative Negative mg/dL 01/30/2024 3:34 PM EDT [facility] Specific [place]ink[place], Urine 1.020 1.003 - 1.030 01/30/2024 3:34 PM EDT [facility] Blood, Urine Negative Negative 01/30/2024 3:34 PM EDT [facility] pH, Urine 6.0 5.0 - 7.5 Units 01/30/2024 3:34 PM EDT [facility] Protein, Urine Negative Negative mg/dL 01/30/2024 3:34 PM EDT [facility] Urobilinogen, Urine 0.2 0.2, 1.0 mg/dL 01/30/2024 3:34 PM EDT [facility] Nitrite, Urine Negative Negative 01/30/2024 3:34 PM EDT [facility] Esterase, Urine Negative Negative 01/30/2024 3:34 PM EDT LAB[facility]ORY [facility] RBC, Urine 0-2 0 - 2 /HPF 01/30/2024 3:34 PM EDT LABORATORY [facility] WBC, Urine 0-2 0 - 2 /HPF 01/30/2024 3:34 PM EDT LAB[facility] Bacteria, Urine 0-25 0 - 25 /HPF 01/30/2024 3:34 PM EDT LAB[facility] Culture, Urine 01/30/2024 3:34 PM EDT LABORATORY [facility] Comment:Culture not indicate d by urinalysis results Urine Urine specimen obtained by clean catch procedure / Unknown Non-blood Collection / Unknown 01/30/2024 3:09 PM EDT 01/30/2024 3:15 PM EDT Jean Bhakta PA-C LAB URINE ORDERA BLES Performing Organization Address City/[facility]/ZIP Co de Phone Number LABORATORY [facility] [address], [place] [id number] * URINALYSIS, REFLEX TO CULTURE (CUP ONLY) (01/30/2024 3:09 PM EDT) Urinalysis, Reflex to Culture Specimen Specimen collected and received 01/30/2024 5:01 PM EDT [facility] Urine Urine specimen obtained by clean catch procedure / Unknown Non-blood Collection / Unknown 01/30/2024 3:09 PM EDT 01/30/2024 3:15 PM EDT Jean Bhakta PA-C LAB URINE ORDERA BLES LAB[facility]AT[facility] [address], [place] [id number] * (ABNORMAL) DIFFERENTIAL, AUTOMATED (01/30/2024 1:43 PM EDT) WBC 10.99(H) 4.00 - 10.80 K/uL 01/30/2024 2:06 PM EDT LABORATORY [facility] Neutrophils % 84.2(H) 40.0 - 75.0 % 01/30/2024 2:06 PM EDT [facility] Lymphocytes % 7.0(L) 18.0 - 42.0 % 01/30/2024 2:06 PM EDT LABORATORY [facility] Monocytes % 7.6 1.0 - 11.0 % 01/30/2024 2:06 PM EDT [facility] Eosinophils % 0.4 0.0 - 6.0 % 01/30/2024 2:06 PM EDT [facility] Basophils % 0.3 0.0 - 2.0 % 01/30/2024 2:06 PM EDT [facility] Immature Granulocytes % 0.5 0.0 - 2.0 % 01/30/2024 2:06 PM EDT [facility] Absolute Neutrophils 9.26(H) 1.80 - 7.70 K/uL 01/30/2024 2:06 PM EDT LAB[facility] Absolute Lymphocytes 0.77(L) 1.00 - 4.80 K/ul 01/30/2024 2:06 PM EDT LAB[facility] Absolute Monocytes 0.84 0.00 - 1.10 K/uL 01/30/2024 2:06 PM EDT LAB[facility] Absolute Eosinophils 0.04 0.00 - 0.70 K/uL 01/30/2024 2:06 PM EDT LAB[facility] Absolute Basophils 0.03 0.00 - 0.20 K/uL 01/30/2024 2:06 PM EDT LAB[facility] Absolute Immature Granulocytes 0.05 0.00 - 0.20 K/uL 01/30/2024 2:06 PM EDT [facility] Blood Venous blood specimen / Unknown Venipuncture / Unknown 01/30/2024 1:43 PM EDT 01/30/2024 2:00 PM EDT Jean Bhakta PA-C LAB BLOOD ORDERA BLES LABORATORY [address] [address] * (ABNORMAL) CBC (01/30/2024 1:43 PM EDT) WBC 10.99(H) 4.00 - 10.80 K/uL 01/30/2024 2:06 PM EDT LABORATORY [facility] RBC 4.31 4.50 - 5.25 M/uL 01/30/2024 2:06 PM EDT LAB[facility] HGB 12.5(L) 14.0 - 16.8 g/dL 01/30/2024 2:06 PM EDT LAB[facility] HCT 37.8(L) 40.0 - 48.4 % 01/30/2024 2:06 PM EDT LAB[facility] MCV 87.7 82.0 - 99.5 fL 01/30/2024 2:06 PM EDT LABORATORY [facility] MCH 29.0 27.0 - 34.0 pg 01/30/2024 2:06 PM EDT LAB[facility] MCHC 33.1 32.0 - 36.0 g/dL 01/30/2024 2:06 PM EDT LABORATORY GL RDW 13.7 11.5 - 15.5 % 01/30/2024 2:06 PM EDT LABORATORY GL PLT 169 140 - 400 K/uL 01/30/2024 2:06 PM EDT LAB[facility]ORY [facility] MPV 10.4 6.6 - 11.1 fL 01/30/2024 2:06 PM EDT LABORATORY [facility] nRBCs 0 <=0 /100 WBCs 01/30/2024 2:06 PM EDT [facility] Blood Venous blood specimen / Unknown Venipuncture / Unknown 01/30/2024 1:43 PM EDT 01/30/2024 2:00 PM EDT Jean Bhakta PA-C LAB BLOOD ORDERA BLES LAB[facility] [address] [place] [address] * (ABNORMAL) CRP (INFLAMMATORY MARKER) (01/30/2024 1:43 PM EDT) Pathologist [facility] CRP (Inflammatory Marker) 52(H) <=5 mg/L 01/30/2024 2:26 PM EDT LABORATORY [facility] Blood Venous blood specimen / Unknown Venipuncture / Unknown 01/30/2024 1:43 PM EDT 01/30/2024 2:00 PM EDT Jean Bhakta PA-C LAB BLOOD ORDERA BLES LABORATORY [facility] [address] [place] [address] * LACTATE (01/30/2024 1:43 PM EDT) Lactate 0.8 0.4 - 2.0 mmol/L 01/30/2024 2:26 PM EDT LABORATORY [facility] Blood Venous blood specimen / Unknown Venipuncture / Unknown 01/30/2024 1:43 PM EDT 01/30/2024 2:00 PM EDT Jean Bhakta PA-C LAB BLOOD ORDERA BLES Performing Organization Address [facility]/ZIP Co de Phone Number LABORATORY [address] [address] * COMPREHENSIVE METABOLIC PANEL (01/30/2024 1:43 PM EDT) BUN 17 6 - 20 mg/dL 01/30/2024 2:26 PM EDT LABORATORY GL Creatinine 1.2 0.6 - 1.2 mg/dL 01/30/2024 2:26 PM EDT LAB[facility] Estimated Glomerular Filtration Rate 68 >=60 mL/min 01/30/2024 2:26 PM EDT LAB[facility] Comment:eGFR is calculated b ased on the CKD-EPI 2020 equation Sodium 138 135 - 146 mmol/L 01/30/2024 2:26 PM EDT [facility] Potassium 4.9 3.5 - 5.1 mmol/L 01/30/2024 2:26 PM EDT [facility] Chloride 101 98 - 107 mmol/L 01/30/2024 2:26 PM EDT [facility] CO2 27 22 - 32 mmol/L 01/30/2024 2:26 PM EDT [facility] Anion Gap 10 7 - 15 mmol/L 01/30/2024 2:26 PM EDT [facility] Glucose 88 70 - 120 mg/dL 01/30/2024 2:26 PM EDT [facility] Albumin 4.1 3.8 - 5.0 g/dL 01/30/2024 2:26 PM EDT [facility] AST 20 10 - 50 U/L 01/30/2024 2:26 PM EDT [facility] Alkaline Phosphatase 44 35 - 130 U/L 01/30/2024 2:26 PM EDT [facility] Bilirubin, Total 0.5 <=1.2 mg/dL 01/30/2024 2:26 PM EDT [facility] Calcium 9.2 8.4 - 10.2 mg/dL 01/30/2024 2:26 PM EDT [facility] Protein 6.8 6.0 - 8.3 g/dL 01/30/2024 2:26 PM EDT [facility] ALT 18 10 - 50 U/L 01/30/2024 2:26 PM EDT [facility] Blood Venous blood specimen / Unknown Venipuncture / Unknown 01/30/2024 1:43 PM EDT 01/30/2024 2:00 PM EDT Jean Bhakta PA-C LAB BLOOD ORDERA BLES Performing Organization Address [facility] Co de Phone Number LABORATORY [facility] [address] [place] [address] * EXTRA LIGHT BLUE TOP (01/30/2024 1:40 PM EDT) Blood Venous blood specimen / Unknown Venipuncture / Unknown 01/30/2024 1:40 PM EDT 01/30/2024 2:01 PM EDT Omkar Alfaro DO LAB BLOOD ORDERABLES Performing Organization Address [facility]/ZIP Co de Phone Number LAB[facility]ATORY [facility] [address] [place] [address] documented in this encounter Visit Diagnoses Diagnosis Ureterolithiasis- Primary Calculus of ureter History of colon polyps Personal history of colonic polyps documented in this encounter Administered Medications Inactive Administered Medications - up to 3 most recent administrations Medication Order MAR Action Action Date Dose Rate Site ketorolac (Toradol) 30 MG/ML inj 15 mg 15 mg, IV Push, ONCE, On Angelika 3/14/24 at 1530, For 1 dose Given 01/30/2024 3:00 PM EDT 15 mg ketorolac (Toradol) 30 MG/ML inj 15 mg 15 mg, IV Push, ONCE, On Angelika 01/30/24 at 1815, For 1 dose Given 01/30/2024 5:48 PM EDT 15 mg NSS 0.9% 1,000 mL bolus infusion IV Piggyback, Wide open, This infusion may be completed in less than 1 hour, since it will be a wide open rate, ONCE, 1 dose, On Angelika 01/30/24 at 1530 New Bag 01/30/2024 2:58 PM EDT 1,000 mL 1200 mL/hr documented in this encounter Active and Recently Administered Medications Times are shown in EDT. Scheduled Medication Order 01/28/2024 01/29/2024 01/30/2024 ketorolac (Toradol) 30 MG/ML inj 15 mg (COMPLETED) 15 mg, IV Push, ONCE, On Angelika 01/30/24 at 1530, For 1 dose 1500 (Given - Provid er: Kel Fitzgerald RN) ketorolac (Toradol) 30 MG/ML inj 15 mg (COMPLETED) 15 mg, IV Push, ONCE, On Angelika 01/30/24 at 1815, For 1 dose 1748 (Given - Provid er: Brittnee Galindo RN) NSS 0.9% 1,000 mL bolus infusion (COMPLETED) IV Piggyback, Wide open, This infusion may be completed in less than 1 hour, since it will be a wide open rate, ONCE, 1 dose, On Angelika 01/30/24 at 1530 1458 (New Bag - Prov ider: Kel Fitzgerald RN)1706 (Stopped - Provider: Kel Fitzgerald RN) documented in this encounter Additional Health Concerns Infection Onset Date Last Indicated Resolved Time Respiratory Rule-Out 01/30/2024 01/30/2024 024 6:41 PM EDT COVID-19 Rule-Out 01/30/2024 01/30/2024 01/30/2024 6:41 PM EDT documented as of this encounter Care Teams Forging Dies Final Finisher Relationship Specialty Start Date End Date Viji Soler DO [address] [place] [address] PCP - General Family Medicine 12/11/11 documented as of this encounter
--- OUTSIDE RECORDS SUMMARY | 2024-02-03 22:35 | External Medical Summary | Summary of Care ---
Author Name Unknown Organization [facility] Address [address] [facility] [place] [address] Phone [phone] Care Team Providers Care Oil Expeller Operator Name Role Phone Viji Soler DO Primary Care Provider Reason for Visit * Reason Onset Date Comments Advice 01/31/2024 Rosalio Contreras/pt needs clearance Encounter Details Date Type Department Care Team (Late st Contact Info) Description 01/31/2024 Telephone Cardiology, [facility] [address] [place] [address] Rosalio Contreras PA-C [address] [place] [address] Advice (Rosalio Contreras/pt needs clearance/) Allergies Active Allergy Reactions Criticality Noted Date [...] (Pfizer) 09/11/2022,10/08/2021 Pneumococcal Conjugate Vacci ne, 20-valent ([id number]) 10/17/2023 Pneumococcal Polysaccharide PPV23 (Pneumovax) 11/19/2019 Seasonal [...] encounter Miscellaneous Notes * Telephone Encounter - Doreen Irwin OSA - 01/31/2024 12:57 PM EDT Pt scheduled and aware. * Telephone Encounter - Rosalio Contreras PA-C - 01/31/2024 12:32 PM EDT OK to add on to my schedule next week, 1 PM discretionary time. Rosalio Munroe * Telephone Encounter - Mari Vega OSA - 01/31/2024 8:53 AM EDT Person calling: Tammie Relationship to patient: Urology Number to return call: [phone] Reason for call: pre op clearance Pt scheduled for right-sided extracorporeal shockwave lithotripsy. 02/11/[address] Jorge and needs clearance Also need to know if pt should stop his aspirin 1 week prior Pharmacy: Provider Name:Rosalio Contreras documented in this encounter Plan of Treatment Upcoming Encounters Date Type Department Care Team (Latest Contact Info) Description 02/03/2024 1:00 PM EDT Office Visit Cardiology, [facility] [address] [place] [address] Rosalio Contreras PA-C [address] [place] [address] 02/11/2024 8:45 AM EDT Hospital Encounter OR [facility], Operating Room, [facility] - 4th Floor [address] [place] [address] Colin Jorge Jr., MD [address] [place] [address] [place] [address] 02/11/2024 8:45 AM EDT - 02/11/2024 10:00 AM EDT Surgery OR [facility], Operating Room, [facility] - 4th Floor 400 [facility] [place] [address] Colin Jorge Jr., MD [address] [place] [address] [place] [address] RIGHT LITHOTRIPSY EXTRACORPOREAL SHOCK WAVE 02/21/2024 8:30 AM EDT Hospital Encounter ENDO [facility], Endoscopy Room [facility] [address] [place] [address] Dahlia Babin MD [address] [place] [address] 02/21/2024 8:30 AM EDT - 02/21/2024 9:00 AM EDT Surgery ENDO [facility], Endoscopy Room [facility] [address] [place] [address] Dahlia Babin MD [address] [place] [address] COLONOSCOPY FLEXIBLE PROXIMAL DIAGNOSTIC 02/25/2024 9:00 AM EDT Office Visit General Surgery [place] [address] [place] [address] [place] [address] Lauryn Mccurdy PA-C [address] [place] [address] [place] [address] 03/11/2024 7:20 AM EDT Office Visit Family Practice [facility] [place] [address] [facility] [place] [address] Makenzie Phan PA-C [address] [facility] [place] [address] Scheduled Procedures Name Priority Associated Diagnoses Date/Ti me LITHOTRIPSY EXTRACORPOREAL SHOCK WAVE Calculus of kidney 02/11/2024 8:45 AM EDT COLONOSCOPY FLEXIBLE PROXIMA L DIAGNOSTIC History of colon polyps 02/21/2024 8:30 AM EDT Health Maintenance Due Date Last Done Comments Depression Screening 01/20/2021 01/21/2020 COLONOSCOPY-EVERY 5 YRS AGES 18-100 04/03/2022 04/03/2017, 04/03/2017, 02/06/2012 COVID-19 Vaccine (2022- season) 2023 09/11/2022, 10/08/2021, 01/15/2021, Additional history exists HbA1c 01/16/2025 01/17/2024, 05/19, 05/18/2022, Additional history exists GFR 01/29/2025 01/30/2024, 0311/2023, 06/14/2023, Additional history exists Albumin/Creatinine Ratio 01/16/2027 [...] Not on filedocumented as of this encounter Care Teams Oil Expeller Operator Relationship Specialty Start Date End Date Viji Soler DO [address] [place] [address] PCP - General Family Medicine 12/11/11 documented as of this encounter
--- OUTSIDE RECORDS SUMMARY | 2024-02-03 22:35 | External Medical Summary ---
Author Name Unknown Address Unknown Organization K1F[facility] - [address] [facility] [place] [address] Laboratory Report Ordering Provider Test Date Status JOCE SWEET 01/30/2024 17:47:55 Final ADMITTED patient Observation Date Value Abnormality Reference (Units ) Status Adenovirus DNA [Presence] in Nasopharynx by ERICK with non-probe detection 01/30/2024 17:47:55 Negative Negative Final Human coronavirus 229E RNA [Presence] in Nasopharynx by ERICK with non-probe detection 01/30/2024 17:47:55 Negative Negative Final Human coronavirus HKU1 RNA [Presence] in Nasopharynx by ERICK with non-probe detection 01/30/2024 17:47:55 Negative Negative Final Human coronavirus NL63 RNA [Presence] in Nasopharynx by ERICK with non-probe detection 01/30/2024 17:47:55 Negative Negative Final Human coronavirus OC43 RNA [Presence] in Nasopharynx by ERICK with non-probe detection 01/30/2024 17:47:55 Negative Negative Final SARS-CoV-2 (COVID-19) RNA [Presence] in Nasopharynx by ERICK with non-probe detection 01/30/2024 17:47:55 Negative Negative Final Human metapneumovirus RNA [Presence] in Nasopharynx by ERICK with non-probe detection 01/30/2024 17:47:55 Negative Negative Final Rhinovirus+Enterovirus RNA [Presence] in Nasopharynx by ERICK with non-probe detection 01/30/2024 17:47:55 Negative Negative Final Influenza virus A RNA [Presence] in Nasopharynx by ERICK with non-probe detection 01/30/2024 17:47:55 Negative Negative Final Influenza virus B RNA [Presence] in Nasopharynx by ERICK with non-probe detection 01/30/2024 17:47:55 Negative Negative Final Parainfluenza virus 1 RNA [Presence] in Nasopharynx by ERICK with non-probe detection 01/30/2024 17:47:55 Negative Negative Final Parainfluenza virus 2 RNA [Presence] in Nasopharynx by ERICK with non-probe detection 01/30/2024 17:47:55 Negative Negative Final Parainfluenza virus 3 RNA [Presence] in Nasopharynx by ERICK with non-probe detection 01/30/2024 17:47:55 Negative Negative Final Parainfluenza virus 4 RNA [Presence] in Nasopharynx by ERICK with non-probe detection 01/30/2024 17:47:55 Negative Negative Final Respiratory syncytial virus RNA [Presence] in Nasopharynx by ERICK with non-probe detection 01/30/2024 17:47:55 Negative Negative Final Bordetella pertussis.pertussis toxin promoter region [Presence] in Nasopharynx by ERICK with non-probe detection 01/30/2024 17:47:55 Negative Negative Final Chlamydophila pneumoniae DNA [Presence] in Nasopharynx by ERICK with non-probe detection 01/30/2024 17:47:55 Negative Negative Final Mycoplasma pneumoniae DNA [Presence] in Nasopharynx by ERICK with non-probe detection 01/30/2024 17:47:55 Negative Negative Final Bordetella parapertussis [id number] DNA [Presence] in Nasopharynx by ERICK with non-probe detection 01/30/2024 17:47:55 Negative Negative Final
The primers that detect Rhinovirus may cross react with some Enterorviruses. The validation of bronchial specimens, tracheal aspirates, and throats for this assay was developed and performance characteristics determined by [employer]. The validation of alternate specimen types has not been cleared or approved by the U.S. Food and Drug Administration (FDA). It has been determined that such clearance or approval is not necessary. [facility] - [address] [facility] [place]. [facility] [address]
--- OUTSIDE RECORDS SUMMARY | 2024-02-03 22:35 | External Medical Summary | Summary of Care ---
Author Name Unknown Organization [facility] Address [address] [facility] [place] [address] Phone [phone] Care Team Providers Care Vulcanizing Press Operator Name Role Phone Viji Soler DO Primary Care Provider Reason for Visit * Reason Onset Date Comments Advice 01/28/2024 Encounter Details Date Type Department Care Team (Late st Contact Info) Description 01/28/2024 Telephone Family Practice [facility] [place] [address] [facility] [place] [address] Viji Soler DO 200 [facility] [place] [id number] Advice Allergies Active Allergy Reactions Criticality Noted [...] (Pfizer) 09/11/2022,10/08/2021 Pneumococcal Conjugate Vacci ne, 20-valent ([id number]) 10/17/2023 Pneumococcal Polysaccharide PPV23 (Pneumovax) 11/19/2019 Seasonal [...] Notes * Telephone Encounter - King Johnson [facility] - 01/29/2024 9:34 AM EDT Per [facility] the company policy [...] Clinical Pharmacy Services (CCPS) 01/29/24 9:43 AM [phone] * Telephone Encounter - Sharon Sidhu PHARM Tech - 01/29/2024 9:32 AM EDT [facility] pharmacy called here today stating that the hydromorphone cannot be filled due to the dosage and they also need a dx code along with affected body part. Warm transferred to [facility] [place] Thank you, Sharon Sidhu House Visitor I Centralized Clinical Pharmacy Services (CCPS)(formerly Telepharmacy) [...] 02/03/2024 1:00 PM EDT Office Visit Cardiology, [facility] [address] [place] [address] Rosalio Contreras PA-C [address] [place] [address] 02/11/2024 8:45 AM EDT Hospital Encounter OR [facility], Operating Room, [facility] - 4th Floor [address] [place] [address] Colin Jorge Jr., MD [address] [facility] [address] [place] [address] 02/11/2024 8:45 AM EDT - 02/11/2024 10:00 AM EDT Surgery OR [facility], Operating Room, [facility] - 4th Floor [address] [place] [address] [place] [address] Colin Jorge Jr., MD [address] [place] [address] [place] [address] RIGHT LITHOTRIPSY EXTRACORPOREAL SHOCK WAVE 02/21/2024 8:30 AM EDT Hospital Encounter ENDO [facility], Endoscopy Room [facility] [address] [place] [address] Dahlia Babin MD [address] [place] [address] 02/21/2024 8:30 AM EDT - 02/21/2024 9:00 AM EDT Surgery ENDO [facility], Endoscopy Room [facility] [address] [place] [phone] Dahlia Babin MD [address] [place] [address] COLONOSCOPY FLEXIBLE PROXIMAL DIAGNOSTIC 02/25/2024 9:00 AM EDT Office Visit General Surgery [place] Kate [address] [place] [address] [place] [address] Lauryn Mccurdy PA-C [address] [place] [address] [place] [address] 03/11/2024 7:20 AM EDT [facility] [place] [address] [facility] [place] [address] Makenzie Phan PA-C [address] [facility] [place] [address] Scheduled Procedures Name Priority Associated Diagnoses Date/Ti [...] documented as of this encounter Care Teams Vulcanizing Press Operator Relationship Specialty Start Date End Date Viji Soler DO [address] [place] [address] PCP - General Family Medicine 12/11/11 documented as of this encounter
--- OUTSIDE RECORDS SUMMARY | 2024-02-03 22:35 | External Medical Summary | Summary of Care ---
Author Name Unknown Organization [facility] Address [address] [facility] [address] Phone [phone] Care Team Providers Care Electrical Project Manager Name Role Phone Kimmy Soler DO Primary Care Provider Reason for Visit * Reason Comments NEW PATIENT * Evaluate & Treat - Unlimited Visits (Within 10 days (routine)) - Pending Review Specialty Diagnoses / Procedures Referred By Mykel sepulveda Referred To Contact Urology Diagnoses Nephrolithiasis Kimmy Soler DO [address] [place] [address] Referral ID Status Reason Start Date Expiration Date Visits Requested Visits Authorized [id number] Pending Review Specialty Services Required 01/27/[phone] Encounter Details Date Type Department Care Team (Late st Contact Info) Description 01/31/2024 8:00 AM EDT Office Visit Urology [place] [address] [place] [address] [place] [address] Casey Kellogg MD [address] [place] [address] [place] [address] Calculus of kidney* Allergies Active Allergy Reactions Criticality Noted Date [...] (Pfizer) 09/11/2022,10/08/2021 Pneumococcal Conjugate Vacci ne, 20-valent ([id number]) 10/17/2023 Pneumococcal Polysaccharide PPV23 (Pneumovax) 11/19/2019 Seasonal [...] on file documented as of this encounter Progress Notes * Casey Kellogg MD - 01/31/2024 7:59 AM EDT [id number] PCP: KIMMY SOLER [address] [place] [address] [phone] Panchito Darden Jr. is a 63 year old male, who presents for evaluation of difficulties with stone disease. Patient's past notes are reviewed including ER presentation yesterday at which time patient wasadvocating for admission and acute intervention. No previous urologic evaluation is noted. Patient initially presented to [facility] and was found to have a 7 mm ureteral stone. Renal ultrasoundyesterday confirms mild hydronephrosis. Ultrasound images are personally reviewed with patient. Patient reports fevers at home but was afebrile in the ER yesterday with a modest white count. Outside records and imaging studies are not available for personal review. Patient reports he has a supply of Zofran, tamsulosin and pain medication at home. Urolithiasis: Patient is being seen for stone disease today. Problem has been present for a week. They have been seen in the ER for their stones previously. This is his first stone. He notes he has had nausea, discomfort. He notes irritative voiding symptoms. Severity is moderate Problem is about the same. Patient has had the following imaging done: CT scan and ultrasound. In the past they have had no surgery for stone to manage their stones. Stone composition is unknown. Previous evaluation was done in ER. Creatinine Results: Lab Results Component Value Date/Time CREATININE - [facility] 1.2 01/30/2024 01:43 PM CREATININE - [facility] 1.0 01/17/2024 11:03 AM CREATININE - [facility] 0.9 06/14/2023 09:44 AM CREATININE - [facility] 0.9 08/24/2020 09:10 AM CREATININE - [facility] 0.9 12/04/2019 12:43 PM CREATININE - [facility] 0.9 12/03/2017 09:42 AM CREATININE, RANDOM URINE - [facility] 93 01/17/2024 11:03 AM CREATININE, RANDOM URINE - [facility] 95 07/05/2020 04:00 PM CREATININE-OUTSIDE LAB 0.97 11/16/2018 12:00 AM PSA Results: Lab Results Component Value Date/Time PSA - [facility] 0.57 12/11/2011 09:07 AM Current Outpatient Medications Medication Sig Dispense Refill Aspirin 81 MG Tablet Take 1 Tablet by mouth every evening. Fenofibrate 134 MG Oral Capsule Take 1 Capsule by mouth in the morning. 90 Capsule 3 Lisinopril 10 MG Oral Tablet (Prinivil) TAKE ONE TABLET BY MOUTH EVERY MORNING 90 Tablet 3 Rosuvastatin Calcium 20 MG Oral Tablet (Crestor) TAKE ONE TABLET BY MOUTH EVERY MORNING 90 Tablet 3 Triamcinolone Acetonide 0.1 % External Cream (Aristocort) Apply topically to affected area 2 times a day. x1-2 weeks 15 g 0 Carvedilol 3.125 MG Oral Tablet (Coreg) TAKE ONE TABLET BY MOUTH EVERY MORNING AND TAKE ONE TABLET BY MOUTH BEFORE BEDTIME 180 Tablet 3 Tamsulosin HCl 0.4 MG Oral Capsule (Flomax) Take 1 Capsule by mouth in the morning. Until stone passes. Drink lots of water. 30 Capsule 0 Ondansetron 4 MG Oral Tablet Disintegrating (Zofran) Place 1 Tablet on tongue every 8 hours as needed for Nausea or Vomiting. dissolve on tongue. 30 Tablet 1 oxyCODONE-Acetaminophen 5-325 MG Oral Tablet (Percocet) Take 1 Tablet by mouth every 4 hours as needed for Pain, Severe. 30 Tablet 0 Sucralfate 1 GM Oral Tablet (Carafate) Take 1 Tablet by mouth in the morning and 1 Tablet at noon and 1 Tablet in the evening and 1 Tablet before bedtime. 120 Tablet 3 Famotidine 20 MG Oral Tablet (Pepcid) Take 1 Tablet by mouth in the morning and 1 Tablet before bedtime. 60 Tablet 11 No current facility-administered medications for this visit. Review of patient's allergies indicates: Allergen Reactions Acetaminophen Other reaction(s): Gastrointestinal Upset Hydrocodone Other reaction(s): Gastrointestinal Upset Lopid [Gemfibrozil] myalgias Oxycodone-Acetaminophen Other (Please comment) Headache, nausea, Zocor [Simvastatin] myalgias Social History: Social History Tobacco Use Smoking status: Former Current packs/day: 0.00 Average packs/day: 1 pack/day for 20.0 years (20.0 ttl pk-yrs) Types: Cigarettes Start date: 02/22/1986 Quit date: 02/22/2006 Years since quittin.9 Smokeless tobacco: Never Substance Use Topics Alcohol use: Not Currently Vaping/E-Cigarette Use Vaping/E-Cigarette Use Never User Passive Exposure No Counseling Given? No Vaping/E-Cigarette Substances Nicotine No Other No Flavoring No THC No Cannabidiol (CBD) No Vaping/E-Cigarette Devices Disposable No Pre-filled or Refillable Cartridge No Refillable Tank No Pre-filled Pod No Family History Problem Relation Age of Onset Heart Disorder Father cardiomyopathy age 46 Diabetes Mother Heart Disorder Brother familial cardiomyopathy Heart Disorder Mother CVA, HTN also Past Surgical History: Procedure Laterality Date COLONOSCOPY W/ BIOPSY (RECTUM) 02/06/12 diverticulosis, polyps--adenomatous tissue-- repeat in 5 yrs COLONOSCOPY, DIAGNOSTIC (RECTUM) 04/03/2017 adenomatous polyp, diverticulosis, repeat 5 yrs COLONOSCOPY, DIAGNOSTIC (RECTUM) 04/03/2017 COLONOSCOPY FLEXIBLE PROXIMAL DIAGNOSTIC performed by Dahlia Babin MD at ENDOSCOPY [facility] DENTAL SURGERY PROCEDURE NEC Dental Surgery Procedure EGD, FLEXIBLE, DIAGNOSTIC 01/14/2015 normal bx/ESOPHAGOGASTRODUODENOSCOPY (EGD), FLEXIBLE, TRANSORAL, DIAGNOSTIC performed by Dahlia Babin MD at ENDOSCOPY [facility] MAXIL SINUS ENDOSCOPY W/TISS REMOVE Bilateral 08/15/2015 NASAL SINUS ENDOSCOPY MAXILLA ANTROSTOMY REMOVE TISSUE performed by George Soliman DO at OR [facility] MISCELLANEOUS ORDER ([facility] ONLY) 3 shoulder surgeries NASAL ENDOSCOPY,TOTAL ETHMOIDECTOMY Bilateral 08/15/2015 NASAL SINUS ENDOSCOPY WITH ETHMOIDECTOMY TOTAL performed by George Soliman DO at OR [facility] REMOVE LUMBAR SPINE LAMINA, 1-1996 3 total back surgeries STEREOTACTIC CRANIAL EXTRADURAL NAVIGATION N/A 08/15/2015 STEREOTACTIC CRANIAL EXTRADURAL NAVIGATION performed by George Soliman DO at OR [facility] Past Medical History: Diagnosis Date Back disorder Benign neoplasm of colon 02/06/12 diverticulosis, polyps--adenomatous tissue-- repeat in 5 yr Familial cardiomyopathy (HCC) Patient Active Problem List Diagnosis Code BURSITIS, right shoulder M71.50 ROTATOR CUFF SYND NOS M75.100 CLASSICAL MIGRAINE WITHOU MENTION OF INTRACTABLE MIGRAINE G43.109 Heart failure, systolic, due to idiopathic cardiomyopathy (HCC) I50.20, I42.9 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 Constitutional: General: He is not in acute distress. Appearance: Normal appearance. He is obese. He is not ill-appearing or toxic-appearing. HENT: Head: Normocephalic and atraumatic. Right Ear: External ear normal. Left Ear: External ear normal. Nose: Nose normal. Mouth/Throat: Mouth: Mucous membranes are moist. Eyes: Extraocular Movements: Extraocular movements intact. Cardiovascular: Pulses: Normal pulses. Pulmonary: Effort: Pulmonary effort is normal. No respiratory distress. Abdominal: Palpations: Abdomen is soft. Tenderness: There is no abdominal tenderness. Musculoskeletal: Cervical back: Normal range of motion and neck supple. Lymphadenopathy: Cervical: No cervical adenopathy. Skin: Coloration: Skin is not cyanotic or pale. Neurological: Mental Status: He is alert and oriented to person, place, and time. Motor: No weakness. Gait: Gait normal. Psychiatric: Attention and Perception: Attention normal. Mood and Affect: Mood and affect normal. Impression/Plan: 63-year-old male with stone disease. Findings reviewed with the patient. Management options for stone disease are reviewed. Patient notes his daughter has had stones in the past and he is anxious over the possibility of a stent. Risks and benefits of intervention are noted, patient wishes to proceed with right-sided extracorporeal shockwave lithotripsy. Will need to allow for aspirin to taper. Patient reports he is stopped this in the past without difficulties. Will enlist the help of the patient's exercise equipment repair technician for clearance. Willtentatively schedule for right-sided extracorporeal shockwave lithotripsy. Risks and benefits reviewed, informed consent obtained. Will check a KUB today for stone visibility. Obtain outside imaging in to PACS or on disc KUB today. Right-sided ESWL. 2-3 week postop follow-up with KUB. Casey Kellogg MD 7:59 AM 01/31/2024 documented in this encounter Nursing Notes * Yessica Lauren LPN - 01/31/2024 7:54 AM EDT New patient was seen in ED 01/30/24 and 01/25/24 Spouse notes he appears pale, cold, sweaty concerned for his appearance and symptoms C/o- flank/groin pain, nocturia x 10, frequency, urgency, dribbling Pvr- 0 ml- last void 1 hr prior documented in this encounter Miscellaneous Notes * Addendum Note - Tammie Baltazar OSA - 01/31/2024 8:48 AM EDTAddended by: TAMMIE BALTAZAR on: 01/31/2024 08:48 AM Modules accepted: Orders documented in this encounter Plan of Treatment Upcoming Encounters Date Type Department Care Team (Latest Contact Info) Description 02/17/2024 9:00 AM EDT Office Visit Cardiology, [facility] [address] [place] [address] Rosalio Contreras PA-C [address] [place] [address] 02/21/2024 8:30 AM EDT Hospital Encounter ENDO [facility], Endoscopy Room [facility] [address] [place] [address] Dahlia Babin MD [address] [place] [address] 02/21/2024 8:30 AM EDT - 02/21/2024 9:00 AM EDT Surgery ENDO [facility], Endoscopy Room [facility] [address] [place] [phone] Dahlia Babin MD [address] [place] [address] COLONOSCOPY FLEXIBLE PROXIMAL DIAGNOSTIC 02/25/2024 9:00 AM EDT Office Visit General Surgery [place] Kate [address] [place] [address] [place] [address] Lauryn Mccurdy PA-C [address] [place] [address] [place] [address] 03/11/2024 7:20 AM EDT Office Visit Family Practice [facility] [address] [place] [address] Makenzie Phan PA-C 200 [facility] [place] [address] Scheduled Orders Name Type Priority Associated Diagnoses Orde r Schedule XR ABDOMEN 1 VIEW Medical Imaging Routine Calculus of kidney Ordered: 01/31/2024 XR ABDOMEN 1 VIEW Medical Imaging Routine Calculus of kidney Ordered: 01/31/2024 Scheduled Procedures Name Priority Associated Diagnoses Date/Ti me COLONOSCOPY FLEXIBLE PROXIMA L DIAGNOSTIC History of colon polyps 02/21/2024 8:30 AM EDT LITHOTRIPSY EXTRACORPOREAL SHOCK WAVE Calculus of kidney Health Maintenance Due Date Last Done Comments [...] Not on filedocumented as of this encounter Visit Diagnoses Diagnosis Calculus of kidney- Primary History of colon polyps Personal history of colonic polyps documented in this encounter Care Teams Electrical Project Manager Relationship Specialty Start Date End Date Kimmy Soler DO [address] [place] [address] PCP - General Family Medicine 12/11/11 documented as of this encounter
--- OUTSIDE RECORDS SUMMARY | 2024-02-03 22:35 | External Medical Summary | Summary of Care ---
Author Name Unknown Organization [facility] Address [address] [place] [address] Phone [phone] Care Team Providers Care [employer] Name Role Phone Viji Soler DO Primary Care Provider Encounter Details Date Type Department Care Team (Latest Contact Info) Description 01/31/2024 8:55 AM EDT - 01/31/2024 11:59 PM EDT Hospital Encounter Radiology, [address] [place] [address] Arrived Discharge Disposition: Home - Self Care Allergies Active Allergy Reactions Criticality Noted Date Comments Acetaminophen Medium 11/16/2018 Other reaction(s): Gastrointestinal Upset Hydrocodone Medium 11/16/2018 Other reaction(s): Gastrointestinal Upset Gemfibrozil 04/17/2007 myalgias Oxycodone-Acetaminoph en Other (Please comment) 10/16/2017 Headache, nausea, Simvastatin 04/17/2007 myalgias documented as of this encounter (statuses as of 02/01/2024) Medications Medication Sig Dispensed Refills Start Date [...] as of this encounter (statuses as of 02/01/2024) Active Problems Problem Noted Date Diagnosed Date [...] as of this encounter (statuses as of 02/01/2024) Resolved Problems Problem Noted Date Diagnosed Date Resolved Date MIXED HYPERLIPIDEMIA(aka HYP ERLIPIDEMIA MIXED) 12/29/2004 11/03/2009 Overview: Per Lipid Taxonomy. documented as of this encounter (statuses as of 02/01/2024) Immunizations Name Administration Dates Next Due COVID-19 mRNA, LNP-s, No Pre serve, 2-Dose Series (Moderna) 01/15/2021,12/11/2020 Covid-19, Mrna, Lnp-s, Pf, B ivalent, 30 Mcg, IM, 12 yrs and above (Pfizer) 09/11/2022,10/08/2021 Pneumococcal Conjugate Vacci ne, 20-valent ([id number]) 10/17/2023 Pneumococcal Polysaccharide PPV23 (Pneumovax) 11/19/2019 Seasonal [...] on file documented as of this encounter Plan of Treatment Upcoming Encounters Date Type Department Care Team (Latest Contact Info) Description 02/03/2024 1:00 PM EDT Office Visit Cardiology, [facility] [address] [place] [address] Rosalio Contreras PA-C [address] [place] [address] 02/11/2024 8:45 AM EDT Hospital Encounter OR [facility], Operating Room, [facility] - 4th Floor [address] [place] [address] Colin Jorge Jr., MD [address] [place] [address] [place] [address] 02/11/2024 8:45 AM EDT - 02/11/2024 10:00 AM EDT Surgery OR [facility], Operating Room, [facility] - 4th Floor [address] [place] [address] Colin Jorge Jr., MD [address] [place] [address] [place] [address] RIGHT LITHOTRIPSY EXTRACORPOREAL SHOCK WAVE 02/21/2024 8:30 AM EDT Hospital Encounter ENDO [facility], Endoscopy Room [facility] [address] [place] [phone] Dahlia Babin MD [address] [place] [address] 02/21/2024 8:30 AM EDT - 02/21/2024 9:00 AM EDT Surgery ENDO [facility], Endoscopy Room [facility] [address] [place] [address] Dahlia Babin MD [address] [place] [address] COLONOSCOPY FLEXIBLE PROXIMAL DIAGNOSTIC 02/25/2024 9:00 AM EDT Office Visit General Surgery Greg Katen [address] [place] [address] [place] [address] Lauryn Mccurdy PA-C [address] [place] [address] [place] [address] 03/11/2024 7:20 AM EDT Office Visit Family Practice [facility] [place] [address] [facility] [place] [address] Makenzie Phan PA-C [address] [facility] [place] [address] Scheduled Procedures Name Priority Associated Diagnoses Date/Ti [...] Procedure Name Priority Date/Time Associated Diagnosis Comments XR ABDOMEN 1 VIEW Routine 01/31/2024 9:0 2 AM EDT Calculus of kidney documented in this encounter Results * XR ABDOMEN 1 VIEW (01/31/2024 9:02 AM EDT) Anatomical Region Laterality Modality Abdomen, Pelvis Digital Radiogra phy 01/31/2024 9:34 AM EDT Impressions 01/31/2024 9:32 AM EDT IMPRESSION Right nephrolithiasis. Narrative 01/31/2024 9:32 AM EDT EXAM XR ABDOMEN 1 VIEW-01/31/2024 9:02 am HISTORY post op xray COMPARISON Renal ultrasound dated 01/30/2024; lumbar spine dated 04/23/2018; CT abdomen pelvis dated 01/17/2015 TECHNIQUE Supine abdomen x2 FINDINGS The bowel pattern is nonspecific. There is no current radiographic evidence of mechanical obstruction. There is significant colonic fecal material present. This unfortunately does obscure particular renal fossa bilaterally Overlying the lower aspect right renal fossa is an approximate 3 mm radiopaque density suspect for intrarenal calculus. No other definite calcific density is seen overlying either renal fossa. No other pathologic calcifications are identified presuming left hemipelvis phlebolith. Soft tissue density in the pelvis is nonspecific but could reflect urine distension of bladder. There is osseous degenerative change. Procedure Note Trey Early MD - 01/31/2024 EXAM XR ABDOMEN 1 VIEW-01/31/2024 9:02 am HISTORY post op xray COMPARISON Renal ultrasound dated 01/30/2024; lumbar spine dated 04/23/2018; CTabdomen pelvis dated 01/17/2015 TECHNIQUE Supine abdomen x2 FINDINGS The bowel pattern is nonspecific. There is no current radiographicevidence of mechanical obstruction. There is significant colonic fecalmaterial present. This unfortunately does obscure particular renal fossabilaterally Overlying the lower aspect right renal fossa is an approximate 3 mmradiopaque density suspect for intrarenal calculus. No other definitecalcific density is seen overlying either renal fossa. No otherpathologic calcifications are identified presuming left hemipelvisphlebolith. Soft tissue density in the pelvis is nonspecific but could reflect urinedistension of bladder. There is osseous degenerative change. IMPRESSION IMPRESSION Right nephrolithiasis. Casey Kellogg MD RADIOLOGY (RAD G ENERAL) documented in this encounter Care Teams [employer] Relationship Specialty Start Date End Date Viji Soler DO [address] [place] [address] PCP - General Family Medicine 12/11/11 documented as of this encounter
--- OUTSIDE RECORDS SUMMARY | 2024-02-03 22:35 | External Medical Summary | Summary of Care ---
Author Name Unknown Organization [facility] Address [address] [facility] [address] Phone [phone] Care Team Providers Care Electronic Equipment Repairmen Name Role Phone Kimmy Soler DO Primary Care Provider Reason for Visit * Reason Comments NEW PATIENT * Evaluate & Treat - Unlimited Visits (Within 10 days (routine)) - Pending Review Specialty Diagnoses / Procedures Referred By Mykel sepulveda Referred To Contact Urology Diagnoses Nephrolithiasis Kimmy Soler DO [address] [place] [address] Referral ID Status Reason Start Date Expiration Date Visits Requested Visits Authorized [id number] Pending Review Specialty Services Required 01/27/[phone] Encounter Details Date Type Department Care Team (Late st Contact Info) Description 01/31/2024 8:00 AM EDT Office Visit Urology [facility] Kate [address] [place] [address] [place] [address] Casey Kellogg MD [address] [place] [address] [place] [address] Calculus of kidney* Allergies Active Allergy Reactions [...] (Pfizer) 09/11/2022,10/08/2021 Pneumococcal Conjugate Vacci ne, 20-valent ([id number]) 10/17/2023 Pneumococcal Polysaccharide PPV23 (Pneumovax) 11/19/2019 Seasonal [...] Kellogg MD - 01/31/2024 7:59 AM EDT [id number] PCP: KIMMY SOLER [address] [place] [address] [phone] Panchito Darden Jr. is a 63 year old male, who presents for evaluation of difficulties with stone disease. Patient's past notes are reviewed including ER presentation yesterday at which time patient wasadvocating for admission and acute intervention. No previous urologic evaluation is noted. Patient initially presented [facility] and was found to have a 7 [...] Zofran, tamsulosin and pain medication at home. Patient notes his pain has progressed to the rightlower quadrant with evidence of urinary frequency and incomplete emptying. Symptoms are consistent with distal progression of his stone. Urolithiasis: Patient is being seen for stone [...] performed by Dahlia Babin MD at ENDOSCOPY [facility] DENTAL SURGERY PROCEDURE NEC Dental Surgery Procedure EGD, FLEXIBLE, DIAGNOSTIC 01/14/2015 normal bx/ESOPHAGOGASTRODUODENOSCOPY (EGD), FLEXIBLE, TRANSORAL, DIAGNOSTIC performed by Dahlia Babin MD at ENDOSCOPY [facility] MAXIL SINUS ENDOSCOPY W/TISS REMOVE Bilateral 08/15/2015 NASAL SINUS ENDOSCOPY MAXILLA ANTROSTOMY REMOVE TISSUE performed by George Soliman DO at OR [facility] MISCELLANEOUS ORDER ([facility] ONLY) 3 shoulder surgeries NASAL ENDOSCOPY,TOTAL ETHMOIDECTOMY Bilateral 08/15/2015 NASAL SINUS ENDOSCOPY WITH ETHMOIDECTOMY TOTAL performed by George Soliman DO at OR [facility] REMOVE LUMBAR SPINE LAMINA, 1-1996 3 total back surgeries STEREOTACTIC CRANIAL EXTRADURAL NAVIGATION N/A 08/15/2015 STEREOTACTIC CRANIAL EXTRADURAL NAVIGATION performed by George Soliman DO at OR [facility] Past Medical History: Diagnosis Date Back [...] Will enlist the help of the patient's light bulb replacer for clearance. Willtentatively schedule for right-sided extracorporeal shockwave lithotripsy. Risks and benefits reviewed, informed consent obtained. Will check a KUB today for stone visibility. Addendum: KUB images are reviewed. Stone is visible in the right kidney on preliminary images per personal review, report pending. There also appears to be a 5 mm calculus overlying the sacrum distally on the right-hand side which would be consistent with the patient's symptoms and distal migrationof the stone. Will leave the patient on the schedule for right-sided shockwave lithotripsy. If he is able to pass his distal stone, right renal stone should be able to be addressed. Obtain outside imaging in to PACS or [...] Department Care Team (Latest Contact Info) Description 02/11/2024 8:45 AM EDT Hospital Encounter OR [facility], Operating Room, [facility] - 4th Floor [address] [place] [address] Colin Jorge Jr., MD [address] [place] [address] 02/11/2024 8:45 AM EDT - 02/11/2024 10:00 AM EDT Surgery OR [facility], Operating Room, [facility] - 4th Floor [address] [place] [address] Colin Jorge Jr., MD [address] [facility] [place] [address] [place] [address] RIGHT LITHOTRIPSY EXTRACORPOREAL SHOCK WAVE 02/17/2024 9:00 AM EDT Office Visit Cardiology, [facility] [address] [place] [address] Rosalio Contreras PA-C [address] [place] [address] 02/21/2024 8:30 AM EDT Hospital Encounter ENDO [facility], Endoscopy Room [facility] [address] [place] [phone] Dahlia Babin MD [address] [place] [address] 02/21/2024 8:30 AM EDT - 02/21/2024 9:00 AM EDT Surgery ENDO [facility], Endoscopy Room [facility] [address] [place] [phone] Dahlia Babin MD [address] [place] [address] COLONOSCOPY FLEXIBLE PROXIMAL DIAGNOSTIC 02/25/2024 9:00 AM EDT Office Visit General Surgery [place] Fil[place]erto Huang [address] [place] [address] [place] [address] Lauryn Mccurdy PA-C [address] [place] [address] [place] [address] 03/11/2024 7:20 AM EDT Office Visit Family Practice [facility] [place]by [place] [address] [facility] [place] [address] Makenzie Phan PA-C 200 [facility] [place] [address] Pending Results Name Type Priority Associated Diagnoses Date /Time XR ABDOMEN 1 VIEW Medical Imaging Routine Calculus of kidney 01/31/2024 9:02 AM EDT Scheduled Orders Name Type Priority Associated Diagnoses [...] Visit Diagnoses Diagnosis Calculus of kidney- Primary Calculus of kidney- Primary Calculus of kidney History of colon polyps Personal history of colonic polyps documented in this encounter Care Teams Electronic Equipment Repairmen Relationship Specialty Start Date End Date Kimmy Soler DO [address] [place] [address] PCP - General Family Medicine 12/11/11 documented as of this encounter
--- OUTSIDE RECORDS SUMMARY | 2024-02-03 22:35 | External Medical Summary | Summary of Care ---
Author Name Unknown Organization [facility] Address [address] [facility] [address] Phone [phone] Care Team Providers Care Hydrator Name Role Phone Kimmy Soler DO Primary Care Provider Reason for Visit * Reason Comments NEW PATIENT * Evaluate & Treat - Unlimited Visits (Within 10 days (routine)) - Pending Review Specialty Diagnoses / Procedures Referred By Mykel sepulveda Referred To Contact Urology Diagnoses Nephrolithiasis Kimmy Soler DO [address] [place] [address] Referral ID Status Reason Start Date Expiration Date Visits Requested Visits Authorized [id number] Pending Review Specialty Services Required 01/27/[phone] Encounter Details Date Type Department Care Team (Late st Contact Info) Description 01/31/2024 8:00 AM EDT Office Visit Urology Fil[place]erto Kate [address] [place] [address] [place] [address] Casey Kellogg MD [address] [place] [address] [place] [address] Calculus of kidney* Allergies Active Allergy Reactions [...] (Pfizer) 09/11/2022,10/08/2021 Pneumococcal Conjugate Vacci ne, 20-valent ([id number]) 10/17/2023 Pneumococcal Polysaccharide PPV23 (Pneumovax) 11/19/2019 Seasonal [...] Kellogg MD - 01/31/2024 7:59 AM EDT [id number] PCP: KIMMY SOLER [address] [place] [address] [phone] Panchito Darden Jr. is a 63 year old male, who presents for evaluation of difficulties with stone disease. Patient's past notes are reviewed including ER presentation yesterday at which time patient wasadvocating for admission and acute intervention. No previous urologic evaluation is noted. Patient initially presented to [facility] and was found to have a [...] performed by Dahlia Babin MD at ENDOSCOPY [facility] DENTAL SURGERY PROCEDURE NEC Dental Surgery Procedure EGD, FLEXIBLE, DIAGNOSTIC 01/14/2015 normal bx/ESOPHAGOGASTRODUODENOSCOPY (EGD), FLEXIBLE, TRANSORAL, DIAGNOSTIC performed by Dahlia Babin MD at ENDOSCOPY [facility] MAXIL SINUS ENDOSCOPY W/TISS REMOVE Bilateral 08/15/2015 NASAL SINUS ENDOSCOPY MAXILLA ANTROSTOMY REMOVE TISSUE performed by George Soliman DO at OR [facility] MISCELLANEOUS ORDER ([facility] ONLY) 3 shoulder surgeries NASAL ENDOSCOPY,TOTAL ETHMOIDECTOMY Bilateral 08/15/2015 NASAL SINUS ENDOSCOPY WITH ETHMOIDECTOMY TOTAL performed by George Soliman DO at OR [facility] REMOVE LUMBAR SPINE LAMINA, 1-1996 3 total back surgeries STEREOTACTIC CRANIAL EXTRADURAL NAVIGATION N/A 08/15/2015 STEREOTACTIC CRANIAL EXTRADURAL NAVIGATION performed by George Soliman DO at OR [facility] Past Medical History: Diagnosis Date Back disorder [...] Will enlist the help of the patient's chamber magistrate for clearance. Willtentatively schedule for right-sided extracorporeal [...] 02/17/2024 9:00 AM EDT Office Visit Cardiology, [facility] [address] [place] [address] Rosalio Contreras PA-C [address] [place] [address] 02/21/2024 8:30 AM EDT Hospital Encounter [facility]O [facility], Endoscopy Room [facility] [address] [place] [address] Dhalia Babin MD [address] [place] [address] 02/21/2024 8:30 AM EDT - 02/21/2024 9:00 AM EDT Surgery ENDO [facility], Endoscopy Room [facility] [address] [place] [phone] Dahlia Babin MD [address] [place] [address] COLONOSCOPY FLEXIBLE PROXIMAL DIAGNOSTIC 02/25/2024 9:00 AM EDT Office Visit General Surgery Filib[place] Kate [address] [place] [address] [place] [address] Lauryn Mccurdy PA-C [address] [place] [address] [place] [address] 03/11/2024 7:20 AM EDT Office Visit Family Practice [facility] [address] [place] [address] Makenzie Phan PA-C [address] [facility] [place] [address] Scheduled Orders Name Type Priority Associated Diagnoses [...] polyps documented in this encounter Care Teams Hydrator Relationship Specialty Start Date End Date Kimmy Soler DO [address] [place] [address] PCP - General Family Medicine 12/11/11 documented as of this encounter
--- OUTSIDE RECORDS SUMMARY | 2024-02-03 22:36 | External Medical Summary | Summary of Care ---
Author Name Unknown Organization [facility] Address [address] [place] [facility] [place] [address] Phone [phone] Care Team Providers Care Public Relations Studies Director Name Role Phone Viji Soler DO Primary Care Provider Reason for Visit * Reason Onset Date Comments Health Maintenance 08/30/2023 Encounter Details Date Type Department Care Team Description 08/30/2023 Telephone Family Practice [facility] [address] [place] [address] Viji Soler DO [address] [place] [address] Health Maintenance Allergies Active Allergy Reactions Severity Noted Date Comments Acetaminophen Medium 11/16/2018 Other reaction(s): Gastrointestinal Upset Hydrocodone Medium 11/16/2018 Other reaction(s): Gastrointestinal Upset Gemfibrozil 04/17/2007 myalgias Oxycodone-Acetaminophe n Other (Please comment) 10/16/2017 Headache, nausea, Simvastatin 04/17/2007 myalgias documented as of this encounter (statuses as of 08/30/2023) Medications Medication Sig Dispensed Refills Start Date [...] MORNING 90 Tablet 3 03/22/2023 03/21/2024 Active Carvedilol 3.125 MG Oral Tablet (Coreg)Indications:Fa milial cardiomyopathy (HCC) TAKE ONE TABLET BY MOUTH EVERY MORNING AND TAKE ONE TABLET BY MOUTH BEFORE BEDTIME 180 Tablet 3 12/14/2022 12/14/2023 Active Triamcinolone Acetonide 0.1 % External Cream (Aristocort)Indicatio ns:Rash and nonspecific skin eruption Apply topically to affected area 2 times a day. x1-2 weeks 15 g 0 06/14/2023 Active predniSONE 10 MG Oral Tablet (Deltasone)Indication s:Rash and nonspecific skin eruption Take 3 tabs for 2 days, 2 tabs for 2 days 1 tab for 2 days--start if not better with steroid cream 12 Tablet 0 06/14/2023 Active documented as of this encounter (statuses as of 08/30/2023) Active Problems Problem Noted Date Hypertension goal BP (blood pressure) < 140/90 01/21/2020 Prediabetes 12/31/2017 Overview: Per Prediabetes protocol #1 DYSLIPIDEMIA, GOAL TO BE DETERMINED 10/18 Overview: Per Lipid Taxonomy. ADVANCE DIRECTIVE INFORMATION 07/30/2005 Overview: No, Advance Directive brochure offered , patient declined. 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 documented as of this encounter (statuses as of 08/30/2023) Immunizations Name Administration Dates Next Due COVID-19 mRNA, LNP-s, No Pre serve, 2-Dose Series (Moderna) 01/15/2021,12/11/2020 Covid-19, Mrna, Lnp-s, Pf, B ivalent, 30 Mcg, IM, 12 yrs and above (Pfizer) 09/11/2022 Pneumococcal Polysaccharide PPV23 (Pneumovax) 11/19/2019 SEASONAL INFLUENZA, PF, 6 M & Above, IM , (FLULAVAL or FLUZONE) 10/10/2022,09/13/2021,08/24/2020,11/19,08/19/2018,10/16/2017 Seasonal Influenza, Quadriva lent, No Preserve, IM 09/11/2016 Seasonal Influenza, Split, I IV3, With Preserve, Inj 09/10/2013,09/18/2012 TD, Preservative Free 01/21/2020 TDAP (age 11 and older)(Adacel) 03/15/2009 Zoster Vaccine Recombinant (Shingrix) 01/21/2020 ,11/19/2019 documented as of this encounter Social History Tobacco Use Types Packs/Day Years Used Date Smoking Tobacco: Former Cigarettes 1 20 Q uit: 02/22/2006 Smokeless Tobacco: Never Alcohol Use Standard Drinks/Week Comments Not Currently 0 (1 standard drink = 0.6 oz pur e alcohol) Sex Assigned at Date Recorded Not on file Job Start Date Occupation Industry Not on file Not on file Not on file documented as of this encounter Miscellaneous Notes * Telephone Encounter - Rosenda RAGHU Virgen - 08/30/2023 2:22 PM EDT Care Gaps Comprehensive Care Outreach Last Office/Telemedicine Visit: 05/18/2022 (in office), Visit date not found (telemedicine) Next Office Visit: 10/17/2023 Hemoglobin AIC Results: Lab Results Component Value Date/Time HEMOGLOBIN A1C - [facility] 6.2 (H) 06/14/2023 09:44 AM HEMOGLOBIN A1C - [facility] 6.1 (H) 05/18/2022 09:48 AM HEMOGLOBIN A1C - [facility] 6.1 (H) 04/27/2021 07:18 AM HEMOGLOBIN A1C - [facility] 6.2 (H) 08/24/2020 09:10 AM HEMOGLOBIN A1C - [facility] 5.5 12/24/2013 03:35 PM Reviewed Health Maintenance below: Health Maintenance Topic Date Due Albumin/Creatinine Ratio Never done Pneumococcal Vaccine: Pediatrics (0 to 5 Years) and At-Risk Patients (6 to 64 Years) (2 - PCV) 11/19/2020 Depression Screening 01/20/2021 COLONOSCOPY-EVERY 5 YRS AGES 18-100 04/03/2022 Influenza Vaccine (FLU shot) (1) 07/19/2023 COVID-19 Vaccine ( season) 2023 Urine already ordered Colon Care Gap Outreach Action Taken: Unable to reach says my number is spam My g sent documented in this encounter Plan of Treatment Upcoming Encounters Date Type Specialty Care Team Description 10/17/2023 Office Visit Family Medicine [facility] Soler DO [address] [facility] [address] 02/17/2024 Office Visit Cardiology Rosalio Contreras PA-C [address] [place] [address] Scheduled Procedures Name Priority Associated Diagnoses Date/Ti me COLONOSCOPY FLEXIBLE PROXIMAL DIAGNOSTIC Recall History of colon polyps Health Maintenance Due Date Last Done Comments Albumin/Creatinine Ratio 1979 Pneumococcal Vaccine: Pediatrics (0 to 5 Years) and At-Risk Patients (6 to 64 Years) (2 - PCV) 11/19/2020 11/19/2019 Depression Screening 01/20/2021 01/21/2020 COLONOSCOPY-EVERY 5 YRS AGES 18-100 04/03/2022 04/03/2017, 04/03/2017, 02/06/2012 COVID-19 Vaccine ( - season) 2023 09/11/2022, 01/15/2021, 12/11/2020 Influenza Vaccine (FLU shot) (#1) 2023 10/10/2022, 09/13/2021, 08/24/2020, Additional history exists GFR 06/14/2024 06/14/2023, 07/0 11/2021, 04/27/2021, Additional history exists HbA1c 06/14/2024 06/14/2023, 07/0 11/2021, 04/27/2021, Additional history exists Lipid Panel 06/14/2028 06/14/2023, 070 11/2021, 08/24/2020, Additional history exists DTaP,Tdap,and Td Vaccines (3 - Td or Tdap) 01/20/2030 01/21/2020, 03/15/2009 Zoster Vaccines Completed 01/21/2020, 11/19/2019 GARDASIL-HPV IMMUNIZATION SERIES Aged Out No [...] filedocumented as of this encounter Care Teams Public Relations Studies Director Relationship Specialty Start Date End Date Viji Soler DO [address] [place] [address] PCP - General Family Medicine 12/11/11 documented as of this encounter
--- OUTSIDE RECORDS SUMMARY | 2024-02-03 22:36 | External Medical Summary ---
Author Name Unknown Address Unknown Organization K01:[facility] [address] [facility] [place] [address] Laboratory Report Ordering Provider Test Date Status LOREN JACK 01/17/2024 11:03:24 Final Observation Date Value Abnormality Reference (Units ) Status TSH 01/17/2024 11:03:24 3.77 0.27-4.20 (uIU/mL) Final Performing Location [facility] [place] [address] [place] [address]
--- OUTSIDE RECORDS SUMMARY | 2024-02-03 22:36 | External Medical Summary ---
Author Name Unknown Address Unknown Organization [id number]:LABORATORY [address] [place] [address] Laboratory Report Ordering Provider Test Date Status DEV MEYERS 01/30/2024 13:43:00 Preliminary Observation Date Value Abnormality Reference (Units) Status Bacteria identified in Specimen by Culture 01/30/2024 13:43:00 No growth to date Preliminary Test: Culture, Blood (Site 2 )
Specimen Source: Blood, Venous
Specimen Type: Blood
Specimen Date: 01/30/2024 1:43 PM
Result Date: 01/30/2024 9:01 PM
Result Status: Preliminary result
Resulting Lab: [facility]
[address] [place] [address]
[place] [address]

CULTURE

No growth to date

null Performing Location LABORATORY [facility] - [address] [place], [place] [address]b[place] [address]
--- OUTSIDE RECORDS SUMMARY | 2024-02-03 22:36 | External Medical Summary ---
Author Name Unknown Address Unknown Organization K1F:LABORATORY [facility] - [address] [place] [address] Laboratory Report Ordering Provider Test Date Status DEV MEYERS 01/30/2024 13:43:00 Final Observation Date Value Abnormality Reference (Units ) Status CRP, low-sensitivity 01/30/2024 13:43:00 52 Above high normal <=5 (mg/L) Final Performing Location LABORATORY [facility] - [address] [place] [address]
--- OUTSIDE RECORDS SUMMARY | 2024-02-03 22:36 | External Medical Summary | Summary of Care ---
Author Name Unknown Organization [facility] Address [address] [place] [facility] [place] [address] Phone [phone] Care Team Providers Care Jewelry Engraver Name Role Phone Viji Soler DO Primary Care Provider Reason for Visit * Reason Comments Outpatient Testing Encounter Details Date Type Department Care Team (Late st Contact Info) Description 01/17/2024 7:20 AM EST Laboratory Laboratory [facility] [address] [place] [phone] [facility] [address] [place] [address] Arrived Allergies Active Allergy Reactions Criticality Noted Date Comments Acetaminophen Medium 11/16/2018 Other reaction(s): Gastrointestinal Upset Hydrocodone Medium 11/16/2018 Other reaction(s): Gastrointestinal Upset Gemfibrozil 04/17/2007 myalgias Oxycodone-Acetaminoph en Other (Please comment) 10/16/2017 Headache, nausea, Simvastatin 04/17/2007 myalgias documented as of this encounter (statuses as of 01/17/2024) Medications Medication Sig Dispensed Refills Start Date [...] BEDTIME 180 Tablet 3 12/13/2023 12/12/2024 Active documented as of this encounter (statuses as of 01/17/2024) Active Problems Problem Noted Date Diagnosed Date [...] as of this encounter (statuses as of 01/17/2024) Resolved Problems Problem Noted Date Diagnosed Date Resolved Date MIXED HYPERLIPIDEMIA(aka HYP ERLIPIDEMIA MIXED) 12/29/2004 11/03/2009 Overview: Per Lipid Taxonomy. documented as of this encounter (statuses as of 01/17/2024) Immunizations Name Administration Dates Next Due COVID-19 mRNA, LNP-s, No Pre serve, 2-Dose Series (Moderna) 01/15/2021,12/11/2020 Covid-19, Mrna, Lnp-s, Pf, B ivalent, 30 Mcg, IM, 12 yrs and above ([employer]) 09/11/2022,10/08/2021 Pneumococcal Conjugate Vacci ne, 20-valent ([id number]) 10/17/2023 Pneumococcal Polysaccharide PPV23 (Pneumovax) 11/19/2019 Seasonal [...] Office Visit Cardiology, [facility] [address] [address] Rosalio Contreras PA-C [address] [address] 02/21/2024 8:30 AM EDT Hospital Encounter ENDO [facility], Endoscopy Room [facility] [address] [phone] Dahlia Babin MD [address] [address] 02/21/2024 8:30 AM EDT - 02/21/2024 9:00 AM EDT Surgery ENDO [facility], Endoscopy Room [facility] [address] [place] [phone] Dahlia Babin MD [address] [place] [address] COLONOSCOPY FLEXIBLE PROXIMAL DIAGNOSTIC Scheduled Procedures Name Priority Associated Diagnoses Date/Ti me COLONOSCOPY FLEXIBLE PROXIMAL DIAGNOSTIC History of colon polyps 02/21/2024 8:30 AM EDT Health Maintenance Due Date Last Done Comments Albumin/Creatinine Ratio 1979 Depression Screening 01/20/2021 01/21/2020 COLONOSCOPY-EVERY 5 YRS AGES 18-100 04/03/2022 04/03/2017, 04/03/2017, 02/06/2012 COVID-19 Vaccine ( season) 2023 09/11/2022, 10/08/2021, 01/15/2021, Additional history exists GFR 06/14/2024 06/14/2023, 07/0 11/2021, 04/27/2021, Additional history exists HbA1c 06/14/2024 06/14/2023, 07/0 11/2021, 04/27/2021, Additional history exists Lipid Panel 06/14/2028 06/14/2023, 07/0 11/2021, 08/24/2020, Additional history exists DTaP,Tdap,and Td [...] filedocumented as of this encounter Care Teams Jewelry Engraver Relationship Specialty Start Date End Date Viji Soler DO [address] [place] [address] PCP - General Family Medicine 12/11/11 documented as of this encounter
--- OUTSIDE RECORDS SUMMARY | 2024-02-03 22:36 | External Medical Summary ---
Author Name Unknown Address Unknown Organization K01:LABORATORY [facility] - [address] [place] [address] Laboratory Report Ordering Provider Test Date Status LOREN JACK 01/17/2024 11:03:24 Final Observation Date Value Abnormality Reference (Units ) Status HbA1C 01/17/2024 11:03:24 6.1 Above high normal 4. 0-5.6 (%) Final The use of HbA1c to monitor glycemic status is based on normal hemoglobin and HbA composition. This test should not be used in patients with abnormal hemoglobin that affects the half life of the red blood cell or the in vivo glycation rates. Glucose, estimated average 01/17/2024 11:03:24 128 Above high normal <126 (mg/dL) Fercho mauricoi Performing Location LABORATORY [facility] - [address] [place] [address]
--- OUTSIDE RECORDS SUMMARY | 2024-02-03 22:36 | External Medical Summary | Summary of Care ---
Author Name Unknown Organization [facility] Address [address] [place] [facility] [place] [place] [address] Phone [phone] Care Team Providers Care Ed Special Education Teacher Name Role Phone Viji Soler DO Primary Care Provider Reason for Referral * Evaluate & Treat - Unlimited Visits (Within 10 days (routine)) - Pending Review Specialty Diagnoses / Procedures Referred By Mykel sepulveda Referred To Contact General Surgery Diagnoses Calculus of gallbladder without cholecystitis without obstruction Makenzie Phan PA-C [address] [place] [address] Referral ID Status Reason Start Date Expiration Date Visits Requested Visits Authorized [id number] Pending Review Specialty Services Required 01/29/[phone] Question Answer Referral Priority Within 10 days (routine) Where should this appointment be scheduled? [facility] What condition is the patient being seen for? General Surgery Conditions What condition is the patient being seen for? Gallbladder Reason for Visit * Reason Comments Acute Stomach issues Encounter Details Date Type Department Care Team (Latest Contact Info) Description 01/29/2024 2:20 PM EDT Office Visit [facility] [address] [place] [address] Makenzie Phan PA-C [address] [place] [address] Calculus of gallbladder without cholecystitis without obstruction*; PUD (peptic ulcer disease); Renal calculi; Heart failure, systolic, due to idiopathic cardiomyopathy (HCC) Allergies Active Allergy Reactions Criticality Noted Date Comments Acetaminophen Medium 11/16/2018 Other reaction(s): Gastrointestinal Upset Hydrocodone Medium 11/16/2018 Other reaction(s): Gastrointestinal Upset Gemfibrozil 04/17/2007 myalgias Oxycodone-Acetaminoph en Other (Please comment) 10/16/2017 Headache, nausea, Simvastatin 04/17/2007 myalgias documented as of this encounter (statuses as of 01/29/2024) Medications Medication Sig Dispensed Refills Start Date [...] on tongue. 30 Tablet 1 01/28/2024 Active Sucralfate 1 GM Oral Tablet (Carafate)Indicatio ns:PUD (peptic ulcer disease) Take 1 Tablet by mouth in the morning and 1 Tablet at noon and 1 Tablet in the evening and 1 Tablet before bedtime. 120 Tablet 3 01/29/2024 Active Famotidine 20 MG Oral Tablet (Pepcid)Indications :PUD (peptic ulcer disease) Take 1 Tablet by mouth in the morning and 1 Tablet before bedtime. 60 Tablet 11 01/29/2024 Active HYDROmorphone HCl 2 MG Oral Tablet (Dilaudid) Take 2 Tablets by mouth every 4 hours as needed for Pain, Severe. 30 Tablet 0 01/28/2024 01/29/20 24 Discontinued HYDROmorphone HCl 2 MG Oral Tablet (Dilaudid) Take 1 Tablet by mouth every 4 hours as needed for Pain, Severe. 30 Tablet 0 01/29/2024 01/29/20 24 Discontinued Hospital, Clinic, or Other Facility Administered Medication Ordered Dose Route Frequency Start Date End Date Status ketorolac (Toradol) 60 MG/2ML IM inj 60 mgIndications:Renal calculi 60 mg IM ONCE 01/29/2024 01/29/20 24 Ended documented as of this encounter (statuses as of 01/29/2024) Active Problems Problem Noted Date Diagnosed Date [...] as of this encounter (statuses as of 01/29/2024) Resolved Problems Problem Noted Date Diagnosed Date Resolved Date MIXED HYPERLIPIDEMIA(aka HYP ERLIPIDEMIA MIXED) 12/29/2004 11/03/2009 Overview: Per Lipid Taxonomy. documented as of this encounter (statuses as of 01/29/2024) Immunizations Name Administration Dates Next Due COVID-19 mRNA, LNP-s, No Pre serve, 2-Dose Series (Moderna) 01/15/2021,12/11/2020 Covid-19, Mrna, Lnp-s, Pf, B ivalent, 30 Mcg, IM, 12 yrs and above (Pfizer) 09/11/2022,10/08/2021 Pneumococcal Conjugate Vacci ne, 20-valent ([id number]) 10/17/2023 Pneumococcal Polysaccharide PPV23 (Pneumovax) 11/19/2019 Seasonal [...] Sign Reading Time Taken Comments Blood Pressure 118/70 01/29/2024 2:38 PM EDT Pulse 82 01/29/2024 2:38 PM EDT Temperature 36.5 C (97.7 F) 01/29/2024 2:38 PM ED T Respiratory Rate 16 01/29/2024 2:38 PM EDT Oxygen Saturation 95% 01/29/2024 2:38 PM EDT Inhaled Oxygen Concentration - - Weight 102.1 kg (225 lb 1.9 oz) 01/29/2024 2:38 PM EDT Height 180.3 cm (5' 11") 01/29/2024 2:38 PM EDT Body Mass Index 31.4 01/29/2024 2:38 PM EDT documented in this encounter Progress Notes * Makenzie Phan PA-C - 01/29/2024 3:48 PM EDT Subjective Panchito Darden Jr. is a 63 year old male that presents for Acute (Stomach issues ) 63 y.o male presents c/o abdominal pain. Pt currently has 5mm right obstructive stone, in a lot of pain, seeing urology on Saturday. He states that he has been having issues with upper abdominal pain, belching for months and it has been getting worse. He is on prilosec but it doesn't seem to help. Has constant nausea if he lets his stomach get empty, always eating small amounts to help. Belching and bloating always, seems to help. Recent CT scan in the ER showed cholelithiasis without acute cholecystitis. Denies fevers, chills, chest pain, SOB. Allergies and medications reviewed. Objective BP 118/70 | Pulse 82 | Temp 36.5 C (97.7 F) (Tympanic) | Resp 16 | Ht 1.803 m (5' 11") | Wt 102.1 kg (225 lb 1.9 oz) | SpO2 95% | BMI 31.40 kg/m | BSA 2.26 m Body mass index is 31.4 kg/m. BP Readings from Last 3 Encounters: 01/29/24 118/70 10/17/23 120/60 06/14/23 112/74 Wt Readings from Last 3 Encounters: 01/29/24 102.1 kg (225 lb 1.9 oz) 10/17/23 105.3 kg (232 lb 0.6 oz) 06/14/23 102.7 kg (226 lb 8 oz) Physical Exam Constitutional: General: He is in acute distress (in pain). HENT: Head: Normocephalic and atraumatic. Eyes: General: No scleral icterus. Extraocular Movements: Extraocular movements intact. Conjunctiva/sclera: Conjunctivae normal. Pupils: Pupils are equal, round, and reactive to light. Cardiovascular: Rate and Rhythm: Normal rate. Pulmonary: Effort: Pulmonary effort is normal. Abdominal: General: Abdomen is flat. Bowel sounds are normal. Palpations: Abdomen is soft. Tenderness: There is abdominal tenderness (RUQ, epigastric, LUQ). Skin: General: Skin is warm and dry. Findings: No rash. Neurological: General: No focal deficit present. Mental Status: He is alert and oriented to person, place, and time. Psychiatric: Mood and Affect: Mood normal. Behavior: Behavior normal. Assessment and plan 1. Calculus of gallbladder without cholecystitis without obstruction -pain could be from PUD, gall bladder or both -will get surgery referral - SURGERY REFERRAL OP 2. PUD (peptic ulcer disease) -will start PUD treatment and follow-up in 6 weeks to see if this helps -already on PPI, start carafate and H2 - Sucralfate 1 GM Oral Tablet (Carafate); Take 1 Tablet by mouth in the morning and 1 Tablet at noon and 1 Tablet in the evening and 1 Tablet before bedtime. Dispense: 120 Tablet; Refill: 3 - Famotidine 20 MG Oral Tablet (Pepcid); Take 1 Tablet by mouth in the morning and 1 Tablet before bedtime. Dispense: 60 Tablet; Refill: 11 3. Renal calculi -urology as scheduled -IM toradol given in office today - ketorolac (Toradol) 60 MG/2ML IM inj 60 mg 4. Heart failure, systolic, due to idiopathic cardiomyopathy (HCC) Follow up Follow-up: Return in about 6 weeks (around 03/11/2024). | Check-out note: Recheck abdominal pain Total time today including reviewing chart before the visit, pertinent labs, imaging reports, face to face time, and documentation time was 25 minutes. The above was discussed and understanding was expressed. Makenzie Phan PA-C documented in this encounter Nursing Notes * Silvana Rudolph LPN - 01/29/2024 2:30 PM EDT Patient presents today for ongoing stomach issues. He was prescribed omeprazole and it isn't helping. He said that it is constantly burning and he is burping constantly. documented in this encounter Plan of Treatment Upcoming Encounters Date Type Department Care Team (Latest Contact Info) Description 01/31/2024 8:00 AM EDT Office Visit Urology [facility] [address] [place] [address] [place] [address] Casey Kellogg MD [address] [place] [address] [place] [place] [address] 02/17/2024 9:00 AM EDT Office Visit Cardiology, [facility] [address] [place] [address] Rosalio Contreras PA-C [address] [place] [address] 02/21/2024 8:30 AM EDT Hospital Encounter ENDO [facility], Endoscopy Room [facility] [address] [phone] Dahlia Babin MD [address] [place] [address] 02/21/2024 8:30 AM EDT - 02/21/2024 9:00 AM EDT Surgery ENDO [facility], Endoscopy Room [facility] [address] [phone] Dahlia Babin MD [address] [place] [address] COLONOSCOPY FLEXIBLE PROXIMAL DIAGNOSTIC 03/11/2024 7:20 AM EDT Office Visit [facility] [address] [place] [address] Makenzie Phan PA-C [address] [place] [address] Scheduled Procedures Name Priority Associated Diagnoses Date/Ti me COLONOSCOPY FLEXIBLE PROXIMAL DIAGNOSTIC History of colon polyps 02/21/2024 8:30 AM EDT Scheduled Referrals Name Type Priority Associated Diagnoses Orde r Schedule SURGERY REFERRAL OP Referral Within 10 days (routine) Calculus of gallbladder without cholecystitis without obstruction Ordered: 01/29/2024 Health Maintenance Due Date Last Done Comments Depression Screening 01/20/2021 01/21/2020 COLONOSCOPY-EVERY 5 YRS AGES 18-100 04/03/2022 04/03/2017, 04/03/2017, 02/06/2012 COVID-19 Vaccine ( season) 2023 09/11/2022, 10/08/2021, 01/15/2021, Additional history exists GFR 01/16/2025 01/17/2024, 05/19, 05/18/2022, Additional history exists HbA1c 01/16/2025 01/17/2024, 05/19, 05/18/2022, Additional history exists Albumin/Creatinine Ratio 01/16/2027 01/17/2024 [...] this encounter Visit Diagnoses Diagnosis Calculus of gallbladder without cholecystitis without obstruction- Primary Calculus of gallbladder without mention of cholecystitis or obstruction PUD (peptic ulcer disease) Peptic ulcer, unspecified site, unspecified as acute or chronic, without mention of hemorrhage, perforation, or obstruction Renal calculi Calculus of kidney Heart failure, systolic, due to idiopathic cardiomyopathy (HCC) Unspecified systolic heart failure History of colon polyps Personal history of colonic polyps documented in this encounter Administered Medications Inactive Administered Medications - up to 3 most recent administrations Medication Order MAR Action Action Date Dose Rate Site ketorolac (Toradol) 60 MG/2ML IM inj 60 mg 60 mg, Intramuscular, ONCE, On Sat01/29/24 at 1600, For 1 dose Given 01/29/2024 3:20 PM EDT 60 mg Dorsogluteal Right documented in this encounter Care Teams Ed Special Education Teacher Relationship Specialty Start Date End Date Viji Soler DO [address] [place] [address] PCP - General Family Medicine 12/11/11 documented as of this encounter
--- OUTSIDE RECORDS SUMMARY | 2024-02-03 22:36 | External Medical Summary ---
Author Name Unknown Address Unknown Organization K1F:LABORATORY [facility] - [address] [address] Laboratory Report Ordering Provider Test Date Status DEV MEYERS 01/30/2024 13:43:00 Final Observation Date Value Abnormality Reference (Units ) Status WBC, Total 01/30/2024 13:43:00 10.99 Above high normal 4.00-10.80 (K/uL) Final RBC 01/30/2024 13:43:00 4.31 4.50-5.25 (M/uL) Final Hemoglobin 01/30/2024 13:43:00 12.5 Below low normal 14.0-16.8 (g/dL) Final HCT 01/30/2024 13:43:00 37.8 Below low normal 40.0-48.4 (%) Final MCV 01/30/2024 13:43:00 87.7 82.0-99.5 (fL) Final MCH 01/30/2024 13:43:00 29.0 27.0-34.0 (pg) Final MCHC 01/30/2024 13:43:00 33.1 32.0-36.0 (g/dL) Final RDW 01/30/2024 13:43:00 13.7 11.5-15.5 (%) Final Platelets 01/30/2024 13:43:00 169 140-400 (K/uL) Final MPV 01/30/2024 13:43:00 10.4 6.6-11.1 (fL) Final Nucleated erythrocytes/100 leukocytes [Ratio] in Blood by Automated count 01/30/2024 13:43:00 0 <=0 (/100 WBCs) Final Performing Location LABORATORY [facility] - [address] [place] [address]
--- OUTSIDE RECORDS SUMMARY | 2024-02-03 22:36 | External Medical Summary ---
Author Name Unknown Address Unknown Organization K1F:LABORATORY [facility] - [address] [place] [address] Laboratory Report Ordering Provider Test Date Status DEV MEYERS 01/30/2024 13:43:00 Final Observation Date Value Abnormality Reference (Units ) Status Lactic Acid 01/30/2024 13:43:00 0.8 0.4-2.0 (mmol/L) Final Performing Location LABORATORY [facility] - [address] [place] [address]
--- OUTSIDE RECORDS SUMMARY | 2024-02-03 22:36 | External Medical Summary ---
Author Name Unknown Address Unknown Organization K01:[facility] [place] [address] [place] [address] Laboratory Report Ordering Provider Test Date Status USSAN ONEAL 01/17/2024 11:03:24 Final Normal: <30 mg/g creatinine< br/>High: 30-300 mg/g creatinine
Very High: >300 mg/g creatinine
Nephrotic: >2200 mg/g creatinine Observation Date Value Abnormality Reference (Units ) Status Albumin, Urine 01/17/2024 11:03:24 1.62 (mg/dL) Final Creatinine, Urine 01/17/2024 11:03:24 93 (mg/dL) Final Albumin/Creatinine [Mass Ratio] in Urine 01/17/2024 11:03:24 17 <30 (mg/g Creat) Final Performing Location [facility] [place] [address] [place] [address]
--- OUTSIDE RECORDS SUMMARY | 2024-02-03 22:36 | External Medical Summary | Summary of Care ---
Author Name Unknown Organization [facility] Address [address] [address] [address] Phone [phone] Care Team Providers Care Critical Care Physician Name Role Phone Viji Soler DO Primary Care Provider Reason for Visit * Reason Onset Date Comments Test Results 01/20/2024 Encounter Details Date Type Department Care Team (Late st Contact Info) Description 01/20/2024 Telephone Cardiology, [facility] [address] [place] [address] Rosalio Contreras PA-C [address] [place] [address] Test Results Allergies Active Allergy Reactions Criticality Noted Date Comments Acetaminophen Medium 11/16/2018 Other reaction(s): Gastrointestinal Upset Hydrocodone Medium 11/16/2018 Other reaction(s): Gastrointestinal Upset Gemfibrozil 04/17/2007 myalgias Oxycodone-Acetaminoph en Other (Please comment) 10/16/2017 Headache, nausea, Simvastatin 04/17/2007 myalgias documented as of this encounter (statuses as of 01/20/2024) Medications Medication Sig Dispensed Refills Start Date [...] as of this encounter (statuses as of 01/20/2024) Active Problems Problem Noted Date Diagnosed Date [...] as of this encounter (statuses as of 01/20/2024) Resolved Problems Problem Noted Date Diagnosed Date Resolved Date MIXED HYPERLIPIDEMIA(aka HYP ERLIPIDEMIA MIXED) 12/29/2004 11/03/2009 Overview: Per Lipid Taxonomy. documented as of this encounter (statuses as of 01/20/2024) Immunizations Name Administration Dates Next Due COVID-19 mRNA, LNP-s, No Pre serve, 2-Dose Series (Moderna) 01/15/2021,12/11/2020 Covid-19, Mrna, Lnp-s, Pf, B ivalent, 30 Mcg, IM, 12 yrs and above (Pfizer) 09/11/2022,10/08/2021 Pneumococcal Conjugate Vacci ne, 20-valent ([id number]) 10/17/2023 Pneumococcal Polysaccharide PPV23 (Pneumovax) 11/19/2019 Seasonal [...] encounter Miscellaneous Notes * Telephone Encounter - Kacy Mckeon CMA - 01/20/2024 11:37 AM EST My g sent. * Telephone Encounter - Kacy Mckeon CMA - 01/20/2024 11:36 AM EST ----- Message from Rosalio Contreras PA-C sent at 01/18/2024 11:46 AM EST ----- Laboratory work is OK/stable. WIll discuss at upcoming appointment. documented in this encounter Plan of Treatment Upcoming Encounters Date Type Department Care Team (Latest Contact Info) Description 02/17/2024 9:00 AM EDT Office Visit Cardiology, [facility] [address] [place] [address] Rosalio Contreras PA-C [address] [place] [address] 02/21/2024 8:30 AM EDT Hospital Encounter ENDO [facility], Endoscopy Room [facility] [address] [place] [phone] Dahlia Babin MD [address] [place] [address] 02/21/2024 8:30 AM EDT - 02/21/2024 9:00 AM EDT Surgery ENDO [facility], Endoscopy Room [facility] [address] [place] [phone] Dahlia Babin MD [address] [place] [address] COLONOSCOPY FLEXIBLE PROXIMAL DIAGNOSTIC Scheduled Procedures Name [...] filedocumented as of this encounter Care Teams Critical Care Physician Relationship Specialty Start Date End Date Viji Soler DO [address] [place] [address] PCP - General Family Medicine 12/11/11 documented as of this encounter
--- OUTSIDE RECORDS SUMMARY | 2024-02-03 22:36 | External Medical Summary | Summary of Care ---
Author Name Unknown Organization [facility] Address [address] [place] [address] Phone [phone] Care Team Providers Care Sanitarian Inspector Name Role Phone Viji Soler DO Primary Care Provider Reason for Visit * Reason Comments Outpatient Testing Encounter Details Date Type Department Care Team (Late st Contact Info) Description 01/17/2024 7:20 AM EST Laboratory Laboratory [facility] [address] [place] [phone] [facility] [address] [place] [address] Arrived Allergies Active Allergy Reactions Criticality Noted [...] 30 Mcg, IM, 12 yrs and above ([employer] [facility]) 09/11/2022,10/08/2021 Pneumococcal Conjugate Vacci ne, 20-valent ([id number]) 10/17/2023 Pneumococcal Polysaccharide PPV23 (Pneumovax) 11/19/2019 Seasonal [...] 02/17/2024 9:00 AM EDT Office Visit Cardiology, [facility] [address] [address] Rosalio Contreras PA-C [address] [address] 02/21/2024 8:30 AM EDT Hospital Encounter ENDO [facility], Endoscopy Room [facility] [address] [phone] Dahlia Babin MD [address] [address] 02/21/2024 8:30 AM EDT - 02/21/2024 9:00 AM EDT Surgery ENDO [facility], Endoscopy Room [facility] [address] [place] [phone] Dahlia Babin MD [address] [place] [address] COLONOSCOPY FLEXIBLE PROXIMAL DIAGNOSTIC Scheduled Procedures Name [...] filedocumented as of this encounter Care Teams Sanitarian Inspector Relationship Specialty Start Date End Date Viji Soler DO [address] [place] [address] PCP - General Family Medicine 12/11/11 documented as of this encounter
--- OUTSIDE RECORDS SUMMARY | 2024-02-03 22:36 | External Medical Summary ---
Author Name Unknown Address Unknown Organization K1F:LABORATORY [facility] - [address] [facility]. [place] [address] Laboratory Report Ordering Provider Test Date Status DEV MEYERS 01/30/2024 13:43:00 Final Observation Date Value Abnormality Reference (Units ) Status BUN 01/30/2024 13:43:00 17 6-20 (mg/dL) Final Creatinine 01/30/2024 13:43:00 1.2 0.6-1.2 (mg/dL) Final Glomerular filtration rate/1.73 sq M.predicted [Volume Rate/Area] in Serum, Plasma or Blood by Creatinine-based formula (CKD-EPI) 01/30/2024 13:43:00 68 >=60 (mL/min) Final eGFR is calculated based on the CKD-EPI 2020 equation SODIUM 01/30/2024 13:43:00 138 135-146 (m mol/L) Final Potassium 01/30/2024 13:43:00 4.9 3.5-5.1 (m mol/L) Final Cl 01/30/2024 13:43:00 101 98-107 (mm ol/L) Final CO2 01/30/2024 13:43:00 27 22-32 (mmo l/L) Final Anion gap 01/30/2024 13:43:00 10 7-15 (mmol /L) Final Glucose 01/30/2024 13:43:00 88 70-120 (mg /dL) Final Albumin 01/30/2024 13:43:00 4.1 3.8-5.0 (g /dL) Final AST (Aspartate aminotransferase) 01/30/2024 13:43:00 20 10-50 (U/L) Final Alk Phos 01/30/2024 13:43:00 44 35-130 (U/ L) Final Bilirubin, Total 01/30/2024 13:43:00 0.5 <=1 .2 (mg/dL) Final Calcium 01/30/2024 13:43:00 9.2 8.4-10.2 ( mg/dL) Final Protein 01/30/2024 13:43:00 6.8 6.0-8.3 (g /dL) Final ALT (Alanine aminotransferase) 01/30/2024 13:43:00 18 10-50 (U/L) Final Performing Location LABORATORY [facility] - [address] [place] [address]
--- OUTSIDE RECORDS SUMMARY | 2024-02-03 22:36 | External Medical Summary | Summary of Care ---
Author Name Unknown Organization [facility] Address [address] [facility] [place] [address] Phone [phone] Care Team Providers Care Veterinary Microbiologist Name Role Phone Viji Soler DO Primary Care Provider Reason for Visit * Reason Comments Medication Refill Encounter Details Date Type Department Care Team (Late st Contact Info) Description 12/13/2023 Refill Cardiology, [facility] [address] [place] [address] Donovan Casarez MD [address] [place] [address] FAMILIAL CARDIOMYOPATHY Allergies Active Allergy Reactions Criticality Noted Date Comments Acetaminophen Medium 11/16/2018 Other reaction(s): Gastrointestinal Upset Hydrocodone Medium 11/16/2018 Other reaction(s): Gastrointestinal Upset Gemfibrozil 04/17/2007 myalgias Oxycodone-Acetaminoph en Other (Please comment) 10/16/2017 Headache, nausea, Simvastatin 04/17/2007 myalgias documented as of this encounter (statuses as of 12/13/2023) Medications Medication Sig Dispensed Refills Start Date End Date Status Aspirin 81 MG Tablet Take 1 Tablet by mouth every evening. 0 Active Fenofibrate 134 MG Oral CapsuleIndications:D yslipidemia, goal to be determined Take 1 Capsule by mouth in the morning. 90 Capsule 3 12/14/2022 Active Lisinopril 10 MG Oral Tablet (Prinivil)Indication s:Familial cardiomyopathy (HCC) TAKE ONE TABLET BY MOUTH EVERY MORNING 90 Tablet 3 03/22/2023 4 Active Rosuvastatin Calcium 20 MG Oral Tablet (Crestor)Indications :Dyslipidemia, goal to be determined TAKE ONE TABLET BY MOUTH EVERY MORNING 90 Tablet 3 03/22/2023 4 Active Triamcinolone Acetonide 0.1 % External Cream (Aristocort)Indicati ons:Rash and nonspecific skin eruption Apply topically to affected area 2 times a day. x1-2 weeks 15 g 0 06/14/2023 Active Carvedilol 3.125 MG Oral Tablet (Coreg)Indications:F amilial cardiomyopathy (HCC) TAKE ONE TABLET BY MOUTH EVERY MORNING AND TAKE ONE TABLET BY MOUTH BEFORE BEDTIME 180 Tablet 3 12/13/2023 5 Active Carvedilol 3.125 MG Oral Tablet (Coreg)Indications:F amilial cardiomyopathy (HCC) TAKE ONE TABLET BY MOUTH EVERY MORNING AND TAKE ONE TABLET BY MOUTH BEFORE BEDTIME 180 Tablet 3 12/14/2022 4 Discontinue d(Refill) documented as of this encounter (statuses as of 12/13/2023) Active Problems Problem Noted Date Diagnosed Date [...] as of this encounter (statuses as of 12/13/2023) Resolved Problems Problem Noted Date Diagnosed Date Resolved Date MIXED HYPERLIPIDEMIA(aka HYP ERLIPIDEMIA MIXED) 12/29/2004 11/03/2009 Overview: Per Lipid Taxonomy. documented as of this encounter (statuses as of 12/13/2023) Immunizations Name Administration Dates Next Due COVID-19 mRNA, LNP-s, No Pre serve, 2-Dose Series (Moderna) 01/15/2021,12/11/2020 Covid-19, Mrna, Lnp-s, Pf, B ivalent, 30 Mcg, IM, 12 yrs and above (Pfizer) 09/11/2022,10/08/2021 Pneumococcal Conjugate Vacci ne, 20-valent ([id number]) 10/17/2023 Pneumococcal Polysaccharide PPV23 (Pneumovax) 11/19/2019 Seasonal [...] encounter Miscellaneous Notes * Telephone Encounter - Marcie Contreras PA-C - 12/13/2023 10:06 AM ESTSigned Prescriptions: Disp Refills Carvedilol 3.125 MG Oral Tablet (Coreg) 180 Ta*3 Sig: TAKE ONE TABLET BY MOUTH EVERY MORNING AND TAKE ONE TABLET BY MOUTH BEFORE BEDTIME Authorizing Provider: MARCIE CONTRERAS * Telephone Encounter - Yvonne Aden COT - 12/13/2023 8:03 AM ESTPending Prescriptions: Disp Refills Carvedilol 3.125 MG Oral Tablet (Coreg) 180 Ta*3 Sig: TAKE ONE TABLET BY MOUTH EVERY MORNING AND TAKE ONE TABLET BY MOUTH BEFORE BEDTIME * Telephone Encounter - Yvonne Aden COT - 12/13/2023 8:03 AM EST Did you pend patient's preferred pharmacy and medication before forwarding?yes Pharmacy: [facility] Pending Prescriptions: Disp Refills Carvedilol 3.125 MG Oral Tablet (Coreg) 180 Ta*3 Sig: TAKE ONE TABLET BY MOUTH EVERY MORNING AND TAKE ONE TABLET BY MOUTH BEFORE BEDTIME Last Visit: 05/17/2023 (in office), Visit date not found (telemedicine) Next Visit: 02/17/2024 If no future appointments scheduled, and last appointment is greater than a year ago, please schedule patient for a follow-up appointment Last date the medication was ordered: 12-14-2022 Is this request for a controlled substance?No Urine Drug Screen:No results found for this or any previous visit. Patient Phone Numbers Labs: Lab Results Component Value Date/Time CREAT 0.9 06/14/2023 09:44 AM CREAT 0.9 08/24/2020 09:10 AM POTASSIUM 4.8 06/14/2023 09:44 AM POTASSIUM 5.2 (H) 08/24/2020 09:10 AM TSH 2.84 04/27/2021 07:18 AM TSH 3.01 12/07/2016 07:26 AM LDLCALC 71 05/18/2022 09:48 AM LDLCALC 72 12/04/2019 12:43 PM LDLDIRECT 76 06/14/2023 09:44 AM LDLDIRECT 82 08/24/2020 09:10 AM LDLDIRECT 95 01/31/2011 07:59 AM ALT 37 06/14/2023 09:44 AM ALT 43 08/24/2020 09:10 AM HGBA1C 6.2 (H) 06/14/2023 09:44 AM HGBA1C 6.2 (H) 08/24/2020 09:10 AM documented in this encounter Plan of Treatment Upcoming Encounters Date Type Department Care Team (Latest Contact Info) Description 02/17/2024 9:00 AM EDT Office Visit Cardiology, [facility] [address] [place] [address] Marcie Contreras PA-C [address] [place] [address] 02/21/2024 8:30 AM EDT Hospital Encounter ENDO [facility], Endoscopy Room [facility] [address] [place] [phone] Dahlia Babin MD [address] [place] [address] 02/21/2024 8:30 AM EDT - 02/21/2024 9:00 AM EDT Surgery ENDO [facility], Endoscopy Room [facility] [address] [place] [phone] Dahlia Babin MD [address] [place] [address] COLONOSCOPY FLEXIBLE PROXIMAL DIAGNOSTIC Scheduled Procedures Name [...] as of this encounter Visit Diagnoses Diagnosis FAMILIAL CARDIOMYOPATHY Other primary cardiomyopathies History of colon polyps Personal history of colonic polyps documented in this encounter Care Teams Veterinary Microbiologist Relationship Specialty Start Date End Date Viji Soler DO [address] [place] [address] PCP - General Family Medicine 12/11/11 documented as of this encounter
--- OUTSIDE RECORDS SUMMARY | 2024-02-03 22:36 | External Medical Summary ---
Author Name Unknown Address Unknown Organization K1F:LABORATORY [facility] - [address] [facility]. [place] [address] Laboratory Report Ordering Provider Test Date Status DEV MEYERS 01/30/2024 13:43:00 Final Observation Date Value Abnormality Reference (Units ) Status SYNC LEUKOCYTES IN BLOOD BY AUTOMATED COUNT 01/30/2024 13:43:00 10.99 Above high normal 4.00-10.80 (K/uL) Final Segs 01/30/2024 13:43:00 84.2 Above high normal 40.0-75.0 (%) Final Lymphs % 01/30/2024 13:43:00 7.0 Below low normal 18.0-42.0 (%) Final Monos 01/30/2024 13:43:00 7.6 1.0-11.0 (%) Final Eosinophils 01/30/2024 13:43:00 0.4 0.0-6.0 (%) Final Basos 01/30/2024 13:43:00 0.3 0.0-2.0 (%) Final Immature Granulocyte, Percent 01/30/2024 13:43:00 0.5 0.0-2.0 (%) Final Absolute Segs 01/30/2024 13:43:00 9.26 Above high normal 1.80-7.70 (K/uL) Final Lymphs, absolute 01/30/2024 13:43:00 0.77 Below low normal 1.00-4.80 (K/ul) Final Monos, Abs 01/30/2024 13:43:00 0.84 0.00-1.10 (K/uL) Final Eos, Abs 01/30/2024 13:43:00 0.04 0.00-0.70 (K/uL) Final Basos, Abs 01/30/2024 13:43:00 0.03 0.00-0.20 (K/uL) Final Immature Granulocytes, Number 01/30/2024 13:43:00 0.05 0.00-0.20 (K/uL) Final Performing Location LABORATORY [facility] - [facility] [address]. [place] [address]
--- OUTSIDE RECORDS SUMMARY | 2024-02-03 22:36 | External Medical Summary ---
Author Name Unknown Address Unknown Organization K09:LABORATORY [facility] [address] [place] [address] Laboratory Report Ordering Provider Test Date Status LOREN JACK 01/17/2024 11:03:24 Final Observation Date Value Abnormality Reference (Units ) Status BUN 01/17/2024 11:03:24 20 6-20 (mg/dL) Final Creatinine 01/17/2024 11:03:24 1.0 0.6-1.2 (mg/dL) Final Glomerular filtration rate/1.73 sq M.predicted [Volume Rate/Area] in Serum, Plasma or Blood by Creatinine-based formula (CKD-EPI) 01/17/2024 11:03:24 89 >=60 (mL/min) Final eGFR is calculated based on the CKD-EPI 2020 equation SODIUM 01/17/2024 11:03:24 140 135-146 (m mol/L) Final Potassium 01/17/2024 11:03:24 4.8 3.5-5.1 (m mol/L) Final Cl 01/17/2024 11:03:24 101 98-107 (mm ol/L) Final CO2 01/17/2024 11:03:24 27 22-32 (mmo l/L) Final Anion gap 01/17/2024 11:03:24 12 7-15 (mmol /L) Final Glucose 01/17/2024 11:03:24 115 70-120 (mg /dL) Final Albumin 01/17/2024 11:03:24 4.8 3.8-5.0 (g /dL) Final AST (Aspartate aminotransferase) 01/17/2024 11:03:24 29 10-50 (U/L) Final Alk Phos 01/17/2024 11:03:24 53 35-130 (U/ L) Final Bilirubin, Total 01/17/2024 11:03:24 0.3 <=1 .2 (mg/dL) Final Calcium 01/17/2024 11:03:24 10.1 8.4-10.2 ( mg/dL) Final Protein 01/17/2024 11:03:24 7.1 6.0-8.3 (g /dL) Final ALT (Alanine aminotransferase) 01/17/2024 11:03:24 42 10-50 (U/L) Final Performing Location LABORATORY [facility] [address] [place] [address]
--- OUTSIDE RECORDS SUMMARY | 2024-02-03 22:36 | External Medical Summary | Summary of Care ---
Author Name Unknown Organization [facility] Address [address] [facility] [place] [address] Phone [phone] Care Team Providers Care Package Wrapper Name Role Phone Viji Soler DO Primary Care Provider Reason for Visit * Reason Comments Outpatient Testing Encounter Details Date Type Department Care Team (Late st Contact Info) Description 01/17/2024 7:20 AM EST Laboratory Laboratory [facility] [address] [place] [phone] [facility] [place] [address] Arrived Allergies Active Allergy Reactions Criticality Noted [...] 30 Mcg, IM, 12 yrs and above ([employer]) 09/11/2022,10/08/2021 Pneumococcal Conjugate Vacci ne, 20-valent ([id number]) 10/17/2023 Pneumococcal Polysaccharide PPV23 (Pneumovax) 11/19/2019 Seasonal [...] 02/17/2024 9:00 AM EDT Office Visit Cardiology, [facility] [address] [place] [address] Rosalio Contreras PA-C [address] [place] [address] 02/21/2024 8:30 AM EDT Hospital Encounter ENDO [facility], Endoscopy Room [facility] [address] [place] [phone] Dahlia Babin MD [address] [place] [address] 02/21/2024 8:30 AM EDT - 02/21/2024 9:00 AM EDT Surgery ENDO [facility], Endoscopy Room [facility] [address] [place] [phone] Dahlia Babin MD [address] [place] [address] COLONOSCOPY FLEXIBLE PROXIMAL DIAGNOSTIC Scheduled Procedures Name [...] filedocumented as of this encounter Care Teams Package Wrapper Relationship Specialty Start Date End Date Viji Soler DO [address] [place] [address] PCP - General Family Medicine 12/11/11 documented as of this encounter
--- OUTSIDE RECORDS SUMMARY | 2024-02-03 22:36 | External Medical Summary | Summary of Care ---
Author Name Unknown Organization [facility] Address [address] [place] [address] Phone [phone] Care Team Providers Care Piccolo Mechanic Name Role Phone Viji Soler DO Primary Care Provider Reason for Visit * Reason Onset Date Comments Advice 01/30/2024 Encounter Details Date Type Department Care Team (Late st Contact Info) Description 01/30/2024 Telephone Urology [place] [address] [place] [address] [place] [phone] Services, Scheduling [address] [place] [address] Advice Allergies Active Allergy Reactions Criticality Noted Date Comments Acetaminophen Medium 11/16/2018 Other reaction(s): Gastrointestinal Upset Hydrocodone Medium 11/16/2018 Other reaction(s): Gastrointestinal Upset Gemfibrozil 04/17/2007 myalgias Oxycodone-Acetaminoph en Other (Please comment) 10/16/2017 Headache, nausea, Simvastatin 04/17/2007 myalgias documented as of this encounter (statuses as of 01/30/2024) Medications Medication Sig Dispensed Refills Start Date [...] as of this encounter (statuses as of 01/30/2024) Active Problems Problem Noted Date Diagnosed Date [...] as of this encounter (statuses as of 01/30/2024) Resolved Problems Problem Noted Date Diagnosed Date Resolved Date MIXED HYPERLIPIDEMIA(aka HYP ERLIPIDEMIA MIXED) 12/29/2004 11/03/2009 Overview: Per Lipid Taxonomy. documented as of this encounter (statuses as of 01/30/2024) Immunizations Name Administration Dates Next Due COVID-19 mRNA, LNP-s, No Pre serve, 2-Dose Series (Moderna) 01/15/2021,12/11/2020 Covid-19, Mrna, Lnp-s, Pf, B ivalent, 30 Mcg, IM, 12 yrs and above (Pfizer) 09/11/2022,10/08/2021 Pneumococcal Conjugate Vacci ne, 20-valent ([id number]) 10/17/2023 Pneumococcal Polysaccharide PPV23 (Pneumovax) 11/19/2019 Seasonal [...] encounter Miscellaneous Notes * Telephone Encounter - Mirna Aquino LPN - 01/30/2024 10:55 AM EDT Called and left message for patient to return call to office. * Telephone Encounter - Adilia Wu OSA - 01/30/2024 10:27 AM EDT Reason for patient's call: unable to urinate now has fever 100.5 [facility] text sent to clinic nurse team .Please advise documented in this encounter Plan of Treatment Upcoming Encounters Date Type Department Care Team (Latest Contact Info) Description 01/31/2024 8:00 AM EDT Office Visit Urology [place] [place] [address] [place] [address] [place] [address] Casey Kellogg MD [address] [place] [address] [place] [address] 02/17/2024 9:00 AM EDT Office Visit Cardiology, [facility] [address] [place] [address] Rosalio Contreras PA-C [address] [place] [address] 02/21/2024 8:30 AM EDT Hospital Encounter ENDO [facility], Endoscopy Room [facility] [address] [place] [phone] Dahlia Babin MD [address] [place] [address] 02/21/2024 8:30 AM EDT - 02/21/2024 9:00 AM EDT Surgery ENDO [facility], Endoscopy Room [facility] [address] [place] [phone] Dahlia Babin MD [address] [place] [address] COLONOSCOPY FLEXIBLE PROXIMAL DIAGNOSTIC 03/11/2024 7:20 AM EDT Office Visit Family Practice [facility] [place] [address] [facility] [place] [address] Makenzie Phan PA-C [address] [facility] [place] [address] Scheduled Procedures Name Priority Associated Diagnoses Date/Ti [...] filedocumented as of this encounter Care Teams Piccolo Mechanic Relationship Specialty Start Date End Date Viji Soler DO [address] [place] [address] PCP - General Family Medicine 12/11/11 documented as of this encounter
--- OUTSIDE RECORDS SUMMARY | 2024-02-03 22:36 | External Medical Summary ---
Author Name Unknown Address Unknown Organization K09:LABORATORY [place] [address] [place] [address] Laboratory Report Ordering Provider Test Date Status LOREN JACK 01/17/2024 11:03:24 Final Observation Date Value Abnormality Reference (Units ) Status WBC, Total 01/17/2024 11:03:24 5.64 4.00-10.8 0 (K/uL) Final RBC 01/17/2024 11:03:24 4.90 4.50-5.25 (M/uL) Final Hemoglobin 01/17/2024 11:03:24 13.7 Below low normal 14 .0-16.8 (g/dL) Final HCT 01/17/2024 11:03:24 42.9 40.0-48.4 (%) Final MCV 01/17/2024 11:03:24 87.6 82.0-99.5 (fL) Final MCH 01/17/2024 11:03:24 28.0 27.0-34.0 (pg) Final MCHC 01/17/2024 11:03:24 31.9 32.0-36.0 (g/dL) Final RDW 01/17/2024 11:03:24 14.3 11.5-15.5 (%) Final Platelets 01/17/2024 11:03:24 182 140-400 (K /uL) Final MPV 01/17/2024 11:03:24 11.8 6.6-11.1 ( fL) Final Performing Location LABORATORY [place] [address]
--- OUTSIDE RECORDS SUMMARY | 2024-02-03 22:36 | External Medical Summary ---
Author Name Unknown Address Unknown Organization K1F:LABORATORY [facility] - [address] [facility] [place] [address] Laboratory Report Ordering Provider Test Date Status DEV MEYERS 01/30/2024 15:09:58 Final Observation Date Value Abnormality Reference (Units ) Status Color of Urine by Auto 01/30/2024 15:09:58 Yellow Light Yellow, Yellow, Dark Yellow Final Clarity, Urine 01/30/2024 15:09:58 Clear Clear Final Glucose [Mass/volume] in Urine by Automated test strip 01/30/2024 15:09:58 Negative Negative (mg/dL) Final Bilirubin.total [Presence] in Urine by Automated test strip 01/30/2024 15:09:58 Negative Negative Final Ketones [Mass/volume] in Urine by Automated test strip 01/30/2024 15:09:58 Negative Negative (mg/dL) Final Specific gravity, Urine 01/30/2024 15:09:58 1.020 1.003-1.030 Final Hemoglobin [Presence] in Urine by Automated test strip 01/30/2024 15:09:58 Negative Negative Final pH, Urine 01/30/2024 15:09:58 6.0 5.0-7.5 (Units) Final Protein [Mass/volume] in Urine by Automated test strip 01/30/2024 15:09:58 Negative Negative (mg/dL) Final Urobilinogen [Mass/volume] in Urine by Automated test strip 01/30/2024 15:09:58 0.2 0.2, 1.0 (mg/dL) Final Nitrite [Presence] in Urine by Automated test strip 01/30/2024 15:09:58 Negative Negative Final Leukocyte esterase [Presence] in Urine by Automated test strip 01/30/2024 15:09:58 Negative Negative Final RBC, Urine 01/30/2024 15:09:58 0-2 0-2 (/HPF) Final WBC, Urine 01/30/2024 15:09:58 0-2 0-2 (/HPF) Final Bacteria [#/area] in Urine sediment by Microscopy high power field 01/30/2024 15:09:58 0-25 0-25 (/HPF) Final CULTURE, URINE - [facility] 01/30/2024 15:09:58 Final Culture not indicated by uri nalysis results\X09\ Performing Location LABORATORY [address] [facility] [address]
--- OUTSIDE RECORDS SUMMARY | 2024-02-03 22:36 | External Medical Summary | Summary of Care ---
Author Name Unknown Organization [facility] Address [address] [facility] [place] [address] Phone [phone] Care Team Providers Care Tube Cutter Name Role Phone Viji Soler DO Primary Care Provider Reason for Visit * Reason Comments Outpatient Testing Encounter Details Date Type Department Care Team (Late st Contact Info) Description 01/17/2024 7:20 AM EST Laboratory Laboratory [facility] [address] [place] [phone] [facility] Lab Scenery [address] [place] [address] Hypertension goal BP (blood pressure) < 140/90; Dyslipidemia, goal to be determined; HTN, goal below 140/90; Prediabetes Allergies Active Allergy Reactions Criticality Noted Date [...] (Pfizer) 09/11/2022,10/08/2021 Pneumococcal Conjugate Vacci ne, 20-valent ([id number]) 10/17/2023 Pneumococcal Polysaccharide PPV23 (Pneumovax) 11/19/2019 Seasonal [...] Visit Cardiology, [facility] [address] [place] [address] Rosalio Contreras, PAJoyC [address] [place] [address] 02/21/2024 8:30 AM EDT Hospital Encounter ENDO [facility], Endoscopy Room [facility] [address] [phone] Dahlia Babin MD [address] [place] [address] 02/21/2024 8:30 AM EDT - 02/21/2024 9:00 AM EDT Surgery ENDO [facility], Endoscopy Room [facility] [address] [place] [phone] Dahlia Babin MD [address] [place] [address] COLONOSCOPY FLEXIBLE PROXIMAL DIAGNOSTIC Pending Results Name Type Priority Associated Diagnoses Date /Time ALBUMIN / CREATININE RATIO, URINE Lab Routine Hypertension goal BP (blood pressure) < 140/90 01/17/2024 11:03 AM EST LIPID PANEL WITH DIRECT LDL IF TG IS HIGH Lab Routine Dyslipidemia, goal to be determined 01/17/2024 11:03 AM EST COMPREHENSIVE METABOLIC PANEL Lab Routine Dyslipidemia, goal to be determined 01/17/2024 11:03 AM EST CBC Lab Routine HTN, goal below 140/90 01/17/2024 11:03 AM EST HEMOGLOBIN A1C Lab Routine Prediabetes 01/17/2024 11:03 AM EST TSH WITH FREE T4 IF INDICATED Lab Routine HTN, goal below 140/90 01/17/2024 11:03 AM EST Scheduled Procedures Name Priority Associated Diagnoses Date/Ti [...] as of this encounter Visit Diagnoses Diagnosis Hypertension goal BP (blood pressure) < 140/90 Unspecified essential hypertension Dyslipidemia, goal to be determined Other and unspecified hyperlipidemia HTN, goal below 140/90 Unspecified essential hypertension Prediabetes Other abnormal glucose History of colon polyps Personal history of colonic polyps documented in this encounter Care Teams Tube Cutter Relationship Specialty Start Date End Date Viji Soler DO [address] [place] [address] PCP - General Family Medicine 12/11/11 documented as of this encounter
--- OUTSIDE RECORDS SUMMARY | 2024-02-03 22:36 | External Medical Summary ---
Author Name Unknown Address Unknown Organization K01:LABORATORY [facility] - [address] [facility] [place] [address] Laboratory Report Ordering Provider Test Date Status LOREN JACK 01/17/2024 11:03:24 Final Observation Date Value Abnormality Reference (Units ) Status Triglyceride 01/17/2024 11:03:24 175 Above high normal <=174 (mg/dL) Final Triglyceride Reference Range s (mg/dL):
<150 Acceptable
150-174 Borderline high
175-499 High
>=500 Very high Cholesterol 01/17/2024 11:03:24 146 <200 (mg /dL) Final Total Cholesterol Reference Ranges (mg/dL):
<200 Desirable
200-239 Borderline high
>=240 High HDL 01/17/2024 11:03:24 35 Below low normal >39 (mg/dL) Final HDL Cholesterol Reference Ra nges (mg/dL):
>=60 High (Desirable)
<50 Low (Undesirable) For Females
<40 Low (Undesirable) For Males NON-HDL CHOLESTEROL 01/17/2024 11:03:24 111 <=159 (mg/dL) Final Non-HDL Cholesterol Referenc e Range (mg/dL):
<100 Target level for high risk ASCVD patient
<130 Optimal for general population
130-159 Near optimal for general population
160-189 Borderline High
190-219 High
>=220 Very High LDL, (calculated) 01/17/2024 11:03:24 76 <= 129 (mg/dL) Final LDL Cholesterol Reference Ra nges (mg/dL):
<70 Target level for high risk ASCVD patient
<100 Optimal for general population
100-129 Near optimal for general population
130-159 Borderline high
160-189 High
>=190 Very high Performing Location LABORATORY [facility] - [address] [facility] [address]
--- OUTSIDE RECORDS SUMMARY | 2024-02-03 22:36 | External Medical Summary | Summary of Care ---
Author Name Unknown Organization [facility] Address [address] [place] [address] Phone [phone] Care Team Providers Care Cooker Syrup Name Role Phone Viji Soler DO Primary Care Provider Reason for Referral * Ancillary Services (Within 30 days (routine)) - Authorized Specialty Diagnoses / Procedures Referred By Contfabien t Referred To Contact Gastroenterology Diagnoses Screen for colon cancer Viji Soler DO [address] [place] [address] Referral ID Status Reason Start Date Expiration Date Visits Requested Visits Authorized [id number] Authorized Ancillary Services Required 3 [phone] Question Answer Referral Priority Within 30 days (routine) Where should this appointment be scheduled? [facility] Comments ALERT: Do not order for pediatric patients (18 years or younger). Cancel off screen and order PEDS GASTROENTEROLOGY CONSULT (Type: 1 visit only-Evaluate and Treat) The following Pt. Instructions are available: - Gastro Colonoscopy Prep Instructions [54851] - Gastro Colonoscopy Prep Instructions (Northern Irish Version) [15070] Go to the Pt. Instructions section within the Visit Navigator to access. Colonoscopy ASGE Guidelines: Postadenoma resection: 1-2 tubular adenomas of less than 1 cm (5 yr intervals) ADDITIONAL INFORMATION 1. Is the patient on Coumadin? No 2. Is the patient on Pradaxa? No Reason for Visit * Reason Onset Date Comments Physical-Exam Medication Administration 10/17/2023 Flu an d/or Pneumo Inj Encounter Details Date Type Department Care Team (Late st Contact Info) Description 10/17/2023 7:20 AM EST Office Visit Family Practice [employer] [address] [facility] [place] [address] Viji Soler DO [address] [facility] [place] [address] Physical exam, annual*; Hypertension goal BP (blood pressure) < 140/90; Screen for colon cancer; Need for prophylactic vaccination and inoculation against influenza; Need for pneumococcal vaccination; Dry eye of right side Allergies Active Allergy Reactions Criticality Noted Date Comments Acetaminophen Medium 11/16/2018 Other reaction(s): Gastrointestinal Upset Hydrocodone Medium 11/16/2018 Other reaction(s): Gastrointestinal Upset Gemfibrozil 04/17/2007 myalgias Oxycodone-Acetaminoph en Other (Please comment) 10/16/2017 Headache, nausea, Simvastatin 04/17/2007 myalgias documented as of this encounter (statuses as of 10/31/2023) Medications Medication Sig Dispensed Refills Start Date [...] 90 Tablet 3 03/22/2023 03/21/20 24 Active Carvedilol 3.125 MG Oral Tablet (Coreg)Indications: Familial cardiomyopathy (HCC) TAKE ONE TABLET BY MOUTH EVERY MORNING AND TAKE ONE TABLET BY MOUTH BEFORE BEDTIME 180 Tablet 3 12/14/2022 12/21/19 24 Active Triamcinolone Acetonide 0.1 % External Cream (Aristocort)Indicat ions:Rash and nonspecific skin eruption Apply topically to affected area 2 times a day. x1-2 weeks 15 g 0 06/14/2023 Active predniSONE 10 MG Oral Tablet (Deltasone)Indicati ons:Rash and nonspecific skin eruption Take 3 tabs for 2 days, 2 tabs for 2 days 1 tab for 2 days--start if not better with steroid cream 12 Tablet 0 06/14/2023 10/17/20 23 Discontinued documented as of this encounter (statuses as of 10/31/2023) Active Problems Problem Noted Date Diagnosed Date [...] as of this encounter (statuses as of 10/31/2023) Resolved Problems Problem Noted Date Diagnosed Date Resolved Date MIXED HYPERLIPIDEMIA(aka HYP ERLIPIDEMIA MIXED) 12/29/2004 11/03/2009 Overview: Per Lipid Taxonomy. documented as of this encounter (statuses as of 10/31/2023) Immunizations Name Administration Dates Next Due COVID-19 mRNA, LNP-s, No Pre serve, 2-Dose Series (Moderna) 01/15/2021,12/11/2020 Covid-19, Mrna, Lnp-s, Pf, B ivalent, 30 Mcg, IM, 12 yrs and above (Pfizer) 09/11/2022,10/08/2021 Pneumococcal Conjugate Vacci ne, 20-valent ([id number]) 10/17/2023 Pneumococcal Polysaccharide PPV23 (Pneumovax) 11/19/2019 Seasonal [...] Sign Reading Time Taken Comments Blood Pressure 120/60 10/17/2023 7:36 AM EST Pulse 68 10/17/2023 7:36 AM EST Temperature 36.3 C (97.4 F) 10/17/2023 7:36 AM ES T Respiratory Rate 16 10/17/2023 7:36 AM EST Oxygen Saturation 97% 10/17/2023 7:36 AM EST Inhaled Oxygen Concentration - - Weight 105.3 kg (232 lb 0.6 oz) 10/17/2023 7:36 AM EST Height 180.3 cm (5' 11") 10/17/2023 7:36 AM EST Body Mass Index 32.36 10/17/2023 7:36 AM EST documented in this encounter Patient Instructions * Patient Instructions* Silvana Rudolph LPN - 10/17/2023 7:47 AM EST ~~PATIENT INSTRUCTIONS FOR FLU SHOT~~ Possible side effects of influenza vaccine, (flu shot), are usually mild and include: 1. Soreness or redness at injection site 2. Low grade fever 3. Body aches You may use Tylenol/Acetaminophen as needed for these symptoms. LET YOUR DOCTOR KNOW IMMEDIATELY IF YOU HAVE DIFFICULTY BREATHING OR SWALLOWING, EXPERIENCE ITCHINGOF FEET OR HANDS, HAVE SWELLING OF EYES, FACE OR INSIDE OF NOSE. ~~PATIENT INSTRUCTIONS FOR PNEUMOCOCCAL VACCINE~~ Possible side effects of pneumococcal vaccine, (pneumonia shot), are usually mild and can include: 1. Soreness or redness at injection site 2. Low grade fever 3. Body aches You may use Tylenol/Acetaminophen as needed for these symptoms. LET YOUR DOCTOR KNOW IMMEDIATELY IF YOU HAVE DIFFICULTY BREATHING OR SWALLOWING, EXPERIENCE ITCHINGOF FEET OR HANDS, HAVE SWELLING OF EYES, FACE OR INSIDE OF NOSE. documented in this encounter Progress Notes * Silvana Rudolph LPN - 10/17/2023 7:47 AM EST PRE - ADMINISTRATION DOCUMENTATION Are you experiencing any cold symptoms or fever? No Have you had Guillain-Riverhead Syndrome (an illness that causes paralysis) within the last 6 weeks? No Have you had the flu shot in the past? YES Have you ever had a reaction to the flu shot? No Silvana Rudolph LPN, 10/17/2023 7:47 AM Immunization Administration Documentation Time Out Procedure Performed: Yes Patient Identified (Ask Name/Date of ): Yes Does the patient have a fever greater than 101 degrees today? No Patient allergic to latex? No VFC Stock: No Immunization(s) verified: Yes, Immunization Name: Flu, VIS Sheet(s) given: Yes Verified Side and Site: Yes Verified Shot(s) with Parent(s)/Patient: Yes Immunization Administration Documentation Time Out Procedure Performed: Yes Patient Identified (Ask Name/Date of ): Yes Does the patient have a fever greater than 101 degrees today? No Patient allergic to latex? No VFC Stock: No Immunization(s) verified: Yes, Immunization Name: Prevnar 20 (PCV20), VIS Sheet(s) given: Yes Verified Side and Site: Yes Verified Shot(s) with Parent(s)/Patient: Yes * Viji Soler DO - 10/17/2023 7:38 AM EST Subjective: Panchito Darden Jr. is a 63 year old male. Chief Complaint Patient presents with Physical-Exam Medication Administration Flu and/or Pneumo Inj HPI: Patient's past medical, surgical, family, and social history were reviewed. Medications, allergies, immunizations, and health care maintenance screenings were also reviewed. Patient presents today for a physical. He said that his right eye has been bothering him, he said that he feels like something is in his eye constantly. Hypertension Follow Up The patient is taking medications as instructed. No medication side effects are described. The patient is not monitoring home blood pressures. The patient denies any acute focal neurologic symptoms. The patient reports no chest pain, no orthopnea, and no dyspnea on exertion. The patient denies intermittent claudication symptoms. Reviewdd cardiology OVN Problem List: Idiopathic cardiomyopathy with return to near normal LV systolic function. 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 Hyperlipidemia with elevated triglycerides. Diabetes mellitus, type 2. Chronic degenerative joint disease. Familial history of cardiomyopathy. PHM: Patient Active Problem List Diagnosis Code BURSITIS, right shoulder M71.50 ROTATOR CUFF SYND NOS M75.100 CLASSICAL MIGRAINE WITHOU MENTION OF INTRACTABLE MIGRAINE G43.109 Heart failure, systolic, due to idiopathic cardiomyopathy (HCC) I50.20, I42.9 Familial cardiomyopathy (HCC) I42.9 Back disorder M53.9 ADVANCE DIRECTIVE INFORMATION DYSLIPIDEMIA, GOAL TO BE DETERMINED E78.5 Prediabetes R73.03 Hypertension goal BP (blood pressure) < 140/90 I10 Outpatient Medications Prior to Visit Medication Sig Dispense Refill Triamcinolone Acetonide 0.1 % External Cream (Aristocort) Apply topically to affected area 2 times a day. x1-2 weeks 15 g 0 Lisinopril 10 MG Oral Tablet (Prinivil) TAKE ONE TABLET BY MOUTH EVERY MORNING 90 Tablet 3 Rosuvastatin Calcium 20 MG Oral Tablet (Crestor) TAKE ONE TABLET BY MOUTH EVERY MORNING 90 Tablet 3 Carvedilol 3.125 MG Oral Tablet (Coreg) TAKE ONE TABLET BY MOUTH EVERY MORNING AND TAKE ONE TABLET BY MOUTH BEFORE BEDTIME 180 Tablet 3 Fenofibrate 134 MG Oral Capsule Take 1 Capsule by mouth in the morning. 90 Capsule 3 Aspirin 81 MG Tablet Take 1 Tablet by mouth every evening. [DISCONTINUED] predniSONE 10 MG Oral Tablet (Deltasone) Take 3 tabs for 2 days, 2 tabs for 2 days 1tab for 2 days--start if not better with steroid cream 12 Tablet 0 No facility-administered medications prior to visit. Last reviewed on 10/17/2023 7:35 AM by Silvana Rudolph LPN Review of patient's allergies indicates: Allergen Reactions Acetaminophen Other reaction(s): Gastrointestinal Upset Hydrocodone Other reaction(s): Gastrointestinal Upset Lopid [Gemfibrozil] myalgias Oxycodone-Acetaminophen Other (Please comment) Headache, nausea, Zocor [Simvastatin] myalgias Objective: BP 120/60 | Pulse 68 | Temp 36.3 C (97.4 F) (Tympanic) | Resp 16 | Ht 1.803 m (5' 11") | Wt 105.3 kg (232 lb 0.6 oz) | SpO2 97% | BMI 32.36 kg/m | BSA 2.3 m Physical Exam: General: alert, healthy, and no distress Head: Normocephalic, No masses, lesions, tenderness or abnormalities Eye Exam: PERRLA, extraocular movements intact, conjunctiva are pink and non- injected, sclera clear Neck: supple, no adenopathy, no bruits, thyroid normal size, non-tender, without nodularity Lymph: no palpable lymphadenopathy Heart: regular rate & rhythm, no murmur, and no gallops Lungs: chest symmetric with normal AP diameter, no chest deformities noted, no chest wall tenderness, lungs clear to auscultation Pulses: carotid=2/4 w/o bruits Extremities: less than 2 second capillary refill, no joint deformities, effusion, or inflammation Latest Reference Range & Units 08/24/20 09:10 04/18/21 08:48 04/27/21 07:18 05/25/21 00:00 05/18/22 09:02 05/18/22 09:48 11/21/22 13:21 01/09/23 00:00 05/17/23 12:14 06/14/23 09:44 pH, Urine 5.0 - 7.5 units 6.0 5.5 Bilirubin, Urine Negative Negative Negative Triglycerides <=174 mg/dL 195 (H) 147 211 (H) Cholesterol <200 mg/dL 138 134 138 NON-HDL CHOLESTEROL 0 - 159 mg/dL 104 Non-HDL Cholesterol <=159 mg/dL 100 104 HDL Cholesterol >39 mg/dL 34 (L) 34 (L) 34 (L) LDL Cholesterol <=129 mg/dL 71 LDL Cholesterol (Direct Measure) <=129 mg/dL 82 76 Sodium 135 - 146 mmol/L 138 140 138 136 Potassium 3.5 - 5.1 mmol/L 5.2 (H) 4.7 5.1 4.8 Chloride 98 - 107 mmol/L 102 104 103 101 CO2 22 - 32 mmol/L 27 29 23 24 BUN 6 - 20 mg/dL 12 17 22 (H) 22 (H) Creatinine 0.6 - 1.2 mg/dL 0.9 0.9 1.1 0.9 Estimated Glomerular Filtration Rate >=60 mL/min >60.0 >90.0 81 >90 Anion Gap 7 - 15 mmol/L 9 7 12 11 Glucose 70 - 120 mg/dL 111 117 101 119 Calcium 8.4 - 10.2 mg/dL 9.9 9.7 9.8 10.0 Protein 6.0 - 8.3 g/dL 6.8 6.8 7.2 7.0 Estimated Average Glucose <126 mg/dL 128 (H) 128 (H) 131 (H) Hemoglobin A1C 4.0 - 5.6 % 6.2 (H) 6.1 (H) 6.1 (H) 6.2 (H) TSH 0.27 - 4.20 uIU/mL 2.84 TSH WITH FREE T4 IF INDICATED Rpt CBC Rpt ! CBC WITH WBC DIFFERENTIAL Rpt ! WBC 4.00 - 10.80 K/uL 7.25 HGB 14.0 - 16.8 g/dL 13.9 (L) HCT 40.0 - 48.4 % 41.4 MCV 82.0 - 99.5 fL 86.1 PLT 140 - 400 K/uL 192 Absolute Neutrophils 1.80 - 7.70 K/uL 4.00 Absolute Lymphocytes 1.00 - 4.80 K/ul 2.45 Absolute Monocytes 0.00 - 1.10 K/uL 0.65 Absolute Eosinophils 0.00 - 0.70 K/uL 0.11 Absolute Basophils 0.00 - 0.20 K/uL 0.04 Hepatitis C Antibody NEG NEGATIVE HIV ANTIGEN & ANTIBODY SCREEN W/ CONFIRMATION Rpt Albumin 3.8 - 5.0 g/dL 4.7 4.7 5.2 (H) 5.0 AST 10 - 50 U/L 29 22 25 30 ALT 10 - 50 U/L 43 35 34 37 Alkaline Phosphatase 35 - 130 U/L 43 50 48 48 Bilirubin, Total <=1.2 mg/dL 0.3 0.3 0.4 0.5 Color, Urine Yellow or Light Yellow Yellow Yellow Blood, Urine Negative Negative Moderate Clarity, Urine Clear Clear Clear Glucose, Urine Negative mg/dL Negative Negative Specific [place], Urine 1.003 - 1.030 1.030 1.025 Protein, Urine Negative mg/dL Negative Negative Urobilinogen, Urine 0.2 - 1.0 mg/dL 0.2 0.2 Nitrite, Urine Negative Negative Negative XR CHEST 2 VIEWS Rpt (E) EKG Rpt Rpt ECHO, COMPLETE (2D), TRANS-THORACIC Rpt Esterase, Urine Negative Negative Negative ASSESSMENT/PLAN: A healthy, low fat, low cholesterol diet and 30-60 minutes of cardiovascular exercise daily were encouraged. A total of 1500mg of Calcium and 1000 IU of vitamin D were recommended daily, to be obtained from a combination of both diet and supplement sources. UTD vaccines SPF 30+ Physical exam, annual (Primary) Hypertension goal BP (blood pressure) < 140/90 - ALBUMIN / CREATININE RATIO, URINE; Future; Expected date: 10/17/2023 Screen for colon cancer - COLONOSCOPY, GI REFERRAL OP Need for prophylactic vaccination and inoculation against influenza - INFLUENZA VACC, QUAD, PF, 6 MONTHS & UP, 0.5 ML, IM Need for pneumococcal vaccination - PNEUMOCOCCAL VACC, PCV20, IM ([id number]) Dry eye of right side Viji Soler DO documented in this encounter Nursing Notes * Silvana Rudolph LPN - 10/17/2023 7:35 AM EST Patient presents today for a physical. He said that his right eye has been bothering him, he said that he feels like something is in his eye constantly. documented in this encounter Plan of Treatment Upcoming Encounters Date Type Department Care Team (Latest Contact Info) Description 02/17/2024 9:00 AM EDT Office Visit Cardiology, [facility] [address] [place] [address] Rosalio Contreras PA-C [address] [place] [address] 02/21/2024 8:30 AM EDT Hospital Encounter ENDO [facility], Endoscopy Room [facility] [address] [place] [address] Dahlia Babin MD [address] [place] [address] 02/21/2024 8:30 AM EDT - 02/21/2024 9:00 AM EDT Surgery ENDO [facility], Endoscopy Room [facility] [address] [place] [address] Dahlia Babin MD [address] [place] [address] COLONOSCOPY FLEXIBLE PROXIMAL DIAGNOSTIC Scheduled Orders Name Type Priority Associated Diagnoses Orde r Schedule ALBUMIN / CREATININE RATIO, URINE Lab Routine Hypertension goal BP (blood pressure) < 140/90 Expected: 10/17/2023 (Approximate), Expires: 10/17/2024 Scheduled Procedures Name Priority Associated Diagnoses Date/Ti me COLONOSCOPY FLEXIBLE PROXIMAL DIAGNOSTIC History of colon polyps 02/21/2024 8:30 AM EDT Scheduled Referrals Name Type Priority Associated Diagnoses Orde r Schedule COLONOSCOPY, GI REFERRAL OP Referral Within 30 days (routine) Screen for colon cancer Ordered: 10/17/2023 Health Maintenance Due Date Last Done Comments [...] as of this encounter Visit Diagnoses Diagnosis Physical exam, annual- Primary Routine general medical examination at a health care facility Hypertension goal BP (blood pressure) < 140/90 Unspecified essential hypertension Screen for colon cancer Special screening for malignant neoplasms, colon Need for prophylactic vaccination and inoculation against influenza Need for pneumococcal vaccination Need for prophylactic vaccination against streptococcus pneumoniae (pneumococcus) Dry eye of right side History of colon polyps Personal history of colonic polyps documented in this encounter Care Teams Cooker Syrup Relationship Specialty Start Date End Date Viji Soler DO [address] [place] [address] PCP - General Family Medicine 12/11/11 documented as of this encounter
--- OUTSIDE RECORDS SUMMARY | 2024-02-03 22:36 | External Medical Summary | Summary of Care ---
Author Name Unknown Organization [facility] Address [address] [place] [address] Phone [phone] Care Team Providers Care Business Strategist Name Role Phone Viji Soler DO Primary Care Provider Reason for Visit * Reason Onset Date Comments Advice 01/30/2024 Encounter Details Date Type Department Care Team (Late st Contact Info) Description 01/30/2024 Telephone Urology Fil[facility] Kate [address] [place] [address] [place] [id number] Services, Scheduling [address] [place] [address] Advice Allergies Active Allergy Reactions Criticality Noted [...] (Pfizer) 09/11/2022,10/08/2021 Pneumococcal Conjugate Vacci ne, 20-valent ([id number]) 10/17/2023 Pneumococcal Polysaccharide PPV23 (Pneumovax) 11/19/2019 Seasonal [...] encounter Miscellaneous Notes * Telephone Encounter - Bruna Ann MED ASSIST - 01/30/2024 11:10 AM EDT Patient is going to the ER in [place] , that way if anything would need done, he is here with Dr Kellogg. * Telephone Encounter - Mirna Aquino LPN - 01/30/2024 10:55 AM EDT Called and left message for patient to return call to office. * Telephone Encounter - Adilia Wu OSA - 01/30/2024 10:27 AM EDT Reason for patient's call: unable to urinate now has fever 100.5 [place] text sent to clinic nurse team .Please advise documented in this encounter Plan of Treatment Upcoming Encounters Date Type Department Care Team (Latest Contact Info) Description 01/31/2024 8:00 AM EDT Office Visit Urology [facility]re[facility] Kate [address] [place] [address] Casey Kellogg MD [address] [place] [address] [place] [address] 02/17/2024 9:00 AM EDT Office Visit Cardiology, [facility] [address] [place] [address] Rosalio Contreras PA-C [address] [place] [address] 02/21/2024 8:30 AM EDT Hospital Encounter ENDO [facility], Endoscopy Room [facility] [place] [phone] Dahlia Babin MD [address] [place] [address] 02/21/2024 8:30 AM EDT - 02/21/2024 9:00 AM EDT Surgery ENDO [facility], Endoscopy Room [facility] [address] [place] [phone] Dahlia Babin MD [address] [place] [address] COLONOSCOPY FLEXIBLE PROXIMAL DIAGNOSTIC 03/11/2024 7:20 AM EDT Office Visit Family Practice [facility] [place] [address] [facility] [place] [address] Makenzie Phan PA-C [address] [facility] [place] [address] Scheduled Procedures Name Priority Associated Diagnoses Date/Ti [...] filedocumented as of this encounter Care Teams Business Strategist Relationship Specialty Start Date End Date Viji Soler DO [address] [place] [address] PCP - General Family Medicine 12/11/11 documented as of this encounter
[2024-02-04] MEDS: DOXYCYCLINE HYCLATE 100 MG in DEXTROSE 5% MINI-B 100 ML IV SCH (05:20)
[2024-02-04] MEDS: ACETAMINOPHEN 325 MG TAB PO PRN (05:26)
[2024-02-04 06:29] LABS: Hematocrit (blood only) 34.9 % (42.0-52.0); Hemoglobin 11.1 g/dl (14.0-18.0); Mean Corpuscular Hemoglobin 27.1 pg (25.0-34.0); Mean Corpuscular Hgb Conc 31.8 g/dL (32.0-36.0); Mean Corpuscular Volume 85.1 fL (80.0-100.0); Mean Platelet Volume 10.3 fL (9.4-12.4); Platelet Count 208 K/uL (130-400); RDW Coefficient of Variation 14.1 % (11.5-14.5); RDW Standard Deviation 43.8 fL (36.4-46.3); White Blood Count 8.61 K/ul (4.8-10.8)
[2024-02-04 06:34] LABS: BUN Creatinine Ratio 21.3 (10-20); Calcium 8.9 mg/dl (8.6-10.3); Est GFR (African American) 84.8 ml/min; Est GFR (Non-African American) 73.2 ml/min; Potassium 4.3 mmol/L (3.5-5.1)
[2024-02-04] MEDS: FAMOTIDINE 20 MG TAB PO SCH (08:24)
[2024-02-04] MEDS: ROSUVASTATIN CALCIUM 20 MG TAB PO SCH (08:26)
[2024-02-04] MEDS: TAMSULOSIN HCL 0.4 MG CAP PO SCH (08:26)
[2024-02-04] MEDS: CYANOCOBALAMIN (B-12) 500 MCG TABLET PO SCH (08:26)
[2024-02-04] MEDS ORDERED: MoRPHine SULFATE 2 MG/ML CARP IV PRN (08:28)
[2024-02-04] MEDS ORDERED: ASPIRIN 81 MG ECTAB PO SCH (09:00)
[2024-02-04] MEDS: LACTATED RINGER'S 1,000 ML IV SCH (09:09)
[2024-02-04] MEDS: KETOROLAC TROMETHAMINE 15 MG/ML VIAL IV PRN (09:10)
--- NOTE | 2024-02-04 11:46 | Hospitalist Progress Note ---
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 LLL PNA Patient reports malaise, cough, poor PO intake over the past week CXR on admission personally reviewed; left basilar opacity Started on Rocephin, doxy in ED Added Mucinex, PRN tessalon pearles, incentive spirometry Saturating at 96% on room air Will need follow-up chest x-ray in 1 month to ensure resolution. Obstructing ureteral stone Ongoing renal colic pain over the past 7-10 days, seen in [facility] and [facility] Following with [facility] urology Dr Kellogg Went to [facility] for clearance day of admission- was cleared from cardiac perspective but directed to ED for further infectious dz workup as above CT abd/pelvis with obstructive stone is seen in the right proximal ureter with associated hydronephrosis Discussed with urology; plan for cystoscopy with right stent placement. Continue Flomax Continue IV fluids. 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 Continue carvedilol, hold lisnopril for now PUD Seen in clinic recently for dyspepsia, belching, e/o cholelithiasis on outpatient imaging Started on Pepcid BID, Carafate on 01/28 DVT Ppx: SCDs for now Code status: FULL PCP: [facility] Dispo: Patient to undergo urological procedure today. Will need to be monitored after the procedure. Possible DC in a.m. depending on clinical status. Time spent evaluating patient, direct bedside care, chart review, placing orders, interpretation of diagnostic studies, discussion with consultants, patient, and family members, as well as other required patient management activities is 50-minute Please note the above document was generated using voice recognition software. It may contain grammatical, syntax or spelling errors. Any formal questions or concerns about the content, text or information contained within the body of this dictation should be directly addressed to the provider for clarification Admission and Anticipated Discharge Date Admission Date: February 03, 2024 Subjective Patient seen and examined at bedside. He reports severe right-sided abdominal pain. Denies fever or chills. Reports of occasional cough Review of Systems Review of Systems: All systems reviewed & are unremarkable except as noted in Subjective Physical Exam Physical Exam: Constitutional: WD/WN, vitals as above, NAD, sitting up in bed, pleasant, conversing easily Respiratory: normal respiratory effort, lungs clear to auscultation, no wheeze, rales, rhonchi. Normal insp/exp effort, no accessory muscle use Cardiovascular: RRR, no murmur, no edema Vessels: no JVD or carotid bruit Chest: normal inspection of chest Abdomen: Tenderness present in right lower quadrant. Musculoskeletal: no cyanosis or clubbing, extremities motor strength 5/5 Skin: no rashes, warm and dry normal turgor Neurologic: PERRL, EOMI, accommodation nl, no face palsy, no dysarthria CN's II- XI intact bilaterally and moves all extremities Psychiatric: A+Ox3, euthymic affect Results & Data Results & Data Vital Signs (Past 12 Hours) Vital Signs Temp Pulse Pulse Resp BP BP Pulse Ox 02/04/24 11:19 36.5 C 72 12 125/67 95 02/04/24 08:02 02/04/24 07:32 37 C 78 14 139/77 97 02/04/24 07:02 75 02/04/24 04:19 72 02/04/24 03:56 02/04/24 03:56 36.4 C L 79 128/66 18 L 02/04/24 03:30 73 16 95 02/04/24 03:20 76 16 93 02/04/24 03:10 74 17 95 02/04/24 03:00 80 16 103/64 93 02/04/24 03:00 80 16 93 02/04/24 02:50 72 15 95 02/04/24 02:40 72 16 95 02/04/24 02:30 72 16 95 02/04/24 02:20 74 17 94 02/04/24 02:10 72 16 95 02/04/24 02:00 77 18 115/74 95 02/04/24 02:00 77 18 95 02/04/24 01:50 79 17 94 02/04/24 01:40 81 15 96 02/04/24 01:33 81 17 95 02/04/24 01:20 72 16 97 02/04/24 01:10 72 16 97 02/04/24 01:00 74 17 117/78 98 02/04/24 01:00 74 17 98 02/04/24 00:50 70 14 98 02/04/24 00:40 77 15 96 02/04/24 00:30 72 16 96 02/04/24 00:20 77 17 96 02/04/24 00:10 75 17 95 02/04/24 00:01 76 16 96 02/04/24 00:01 76 16 129/71 96 02/04/24 00:00 76 17 96 02/03/24 23:50 74 16 96 O2 Del Method 02/04/24 11:19 Room Air 02/04/24 08:02 Room Air 02/04/24 07:32 Room Air 02/04/24 07:02 02/04/24 04:19 02/04/24 03:56 Room Air 02/04/24 03:56 Room Air 02/04/24 03:30 02/04/24 03:20 02/04/24 03:10 02/04/24 03:00 02/04/24 03:00 02/04/24 02:50 02/04/24 02:40 02/04/24 02:30 02/04/24 02:20 02/04/24 02:10 02/04/24 02:00 02/04/24 02:00 02/04/24 01:50 02/04/24 01:40 02/04/24 01:33 02/04/24 01:20 02/04/24 01:10 02/04/24 01:00 02/04/24 01:00 02/04/24 00:50 02/04/24 00:40 02/04/24 00:30 02/04/24 00:20 02/04/24 00:10 02/04/24 00:01 02/04/24 00:01 Room Air 02/04/24 00:00 02/03/24 23:50
--- NOTE | 2024-02-04 12:30 | Anesthesiology Consultation ---
Date of Service February 04, 2024 Assessment & Plan Chart Review Chart Review: Acceptable Risk for Surgery and Patient NOT seen in Pre Admission Testing Consults Requested none ASA ASA4 Proposed Anesthesia Anesthesia Type: MAC History Surgery Operation Date: 02/04/24 09:40 Proposed Procedures p Cystoscopy, Right Retrograde Pyelogram, Right Stent Placement - King Banuelos MD Height/Weight Height: 5 ft 11 in Weight: 101.5 kg Allergies Allergy/AdvReac Type Severity Reaction Status Date / Time acetaminophen [From Vicodin] Allergy Intermediate Gastrointestinal Verified 11/16/18 15:07 Upset atorvastatin [From Lipitor] Allergy Intermediate MUSCLE Verified 11/16/18 15:07 ACHES hydrocodone [From Vicodin] Allergy Intermediate Gastrointestinal Verified 11/16/18 15:07 Upset simvastatin [From Zocor] Allergy Intermediate MUSCLE Verified 11/16/18 15:07 ACHES Medications Home Medications Medication Instructions Recorded Confirmed Last Taken aspirin 81 mg tablet,delayed 81 mg PO DAILY 11/16/18 02/03/24 11/16/18 release (Aspir-) carvedilol 3.125 mg tablet 3.125 mg PO BID 11/16/18 02/03/24 02/03/24 cyanocobalamin (vitamin B-12) 1,000 mcg PO DAILY 11/16/18 02/03/24 02/03/24 1,000 mcg tablet (Vitamin B-12) fenofibrate nanocrystallized 145 145 mg PO QAM 11/16/18 02/03/24 02/03/24 mg tablet lisinopril 10 mg tablet 10 mg PO QAM 11/16/18 02/03/24 02/03/24 omega 8-www-[id number]-fish oil 1,000 mg 0 mg PO DAILY 11/16/18 02/03/24 11/16/18 (120 mg-180 mg) capsule (Fish Oil) rosuvastatin 5 mg tablet 20 mg PO QAM 11/16/18 02/03/24 02/03/24 Vitamin C See Rx Instructions .Route .COMPLEX 02/03/24 02/03/24 Unknown Vitamin D3 See Rx Instructions .Route .COMPLEX 02/03/24 02/03/24 Unknown famotidine 20 mg tablet 20 mg PO BID 02/03/24 02/03/24 02/03/24 ondansetron 4 mg disintegrating 4 mg PO Q8H PRN N/V 02/03/24 02/03/24 Unknown tablet oxycodone-acetaminophen 5 mg-325 1 tab PO Q4H PRN Pain, Severe 02/03/24 02/03/24 Unknown mg tablet sucralfate 1 gram tablet 1 g PO TID 02/03/24 02/03/24 02/03/24 tamsulosin 0.4 mg capsule 0.4 mg PO DAILY 02/03/24 02/03/24 02/03/24 Active Medications Generic Name Dose Route Start Last Admin Trade Name Freq PRN Reason Stop Dose Admin Acetaminophen 650 mg 02/03/24 19:13 02/04/24 05:26 Acetaminophen 325 Mg Tab PO 03/04/24 19:12 650 mg Q4H PRN Administration Pain or Fever Carvedilol 3.125 mg 02/03/24 21:30 02/04/24 08:24 Carvedilol 3.125 Mg Tab PO 03/04/24 21:29 3.125 mg BID LAISHA Administration Cyanocobalamin 1,000 mcg 02/04/24 09:00 02/04/24 08:26 Cyanocobalamin (B-12) 500 Mcg Tablet PO 03/05/24 08:59 1,000 mcg DAILY LAISHA Administration Famotidine 20 mg 02/04/24 09:00 02/04/24 08:24 Famotidine 20 Mg Tab PO 03/05/24 08:59 20 mg BID LAISHA Administration Guaifenesin 600 mg 02/03/24 21:20 02/04/24 08:25 Guaifenesin 600 Mg Tabcr PO 03/04/24 21:19 600 mg Q12 LAISHA Administration Doxycycline Hyclate 100 mg/ 100 mls @ 50 mls/hr 02/04/24 06:00 02/04/24 08:02 Dextrose IV 02/11/24 05:59 Infused Q12H LAISHA Infusion Lactated Ringer's 1,000 mls @ 125 mls/hr 02/04/24 08:30 02/04/24 09:09 Lr IV 02/04/24 16:29 125 mls/hr .Q8H LAISHA Administration Ketorolac Tromethamine 15 mg 02/04/24 08:28 02/04/24 09:10 Ketorolac Tromethamine 15 Mg/Ml Vial IV 02/09/24 08:27 15 mg Q6H PRN Administration Pain Rosuvastatin Calcium 20 mg 02/04/24 09:00 02/04/24 08:26 Rosuvastatin Calcium 20 Mg Tab PO 03/05/24 08:59 20 mg QAM LAISHA Administration Sucralfate 1 gm 02/03/24 21:25 02/04/24 08:24 Sucralfate 1 Gm Tab PO 03/04/24 21:24 1 gm TID LAISHA Administration Tamsulosin HCl 0.4 mg 02/04/24 09:00 02/04/24 08:26 Tamsulosin Hcl 0.4 Mg Cap PO 03/05/24 08:59 0.4 mg DAILY LAISHA Administration Past Medical History Medical History Familial cardiomyopathy HTN (hypertension) 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 Dyslipidemia Ureterolithiasis - mild Exercise / Class Metabolic Activity II 4-5 Yardwork/Stairs/Walk up hill Past Family History Family History Other Diabetes Heart disease Past Surgical History Surgical History H/O laminectomy History of rotator cuff surgery Past Anesthesia History No Hx of Anesthesia Complications and No Family Hx of Anesthesia Complications History of PONV No Hx of PONV and No Hx of Motion Sickness Social History Smoking Status: Former smoker Do You Dip or Chew Tobacco: No Hx Alcohol Use: No Hx Substance Use: No Physical Exam Vital Signs Last Vital Signs Temp 36.5 C 02/04/24 11:19 Pulse 72 02/04/24 11:19 Resp 12 02/04/24 11:19 BP 125/67 02/04/24 11:19 Pulse Ox 95 02/04/24 11:19 O2 Del Method Room Air 02/04/24 11:19 Testing Laboratory Results 02/04/24 05:41 02/04/24 05:41 Urine Color Dark Yellow 02/03/24 15:23 Urine Appearance Clear (Clear) 02/03/24 15:23 Urine pH 5.5 (4.5-7.5) 02/03/24 15:23 Ur Specific [place] 1.025 (1.000-1.030) 02/03/24 15:23 Urine Protein Negative (Negative) 02/03/24 15:23 Urine Glucose (UA) Negative (Negative) 02/03/24 15:23 Urine Ketones Negative (Negative) 02/03/24 15:23 Urine Nitrite Negative (Negative) 02/03/24 15:23 Ur Leukocyte Esterase Negative (Negative) 02/03/24 15:23 Urine WBC (Auto) 1-5 /hpf (0-5) 02/03/24 15:23 Urine RBC (Auto) 10-30 /hpf (0-4) H 02/03/24 15:23 U Hyaline Cast (Auto) 1-5 /lpf (0-5) 02/03/24 15:23 U Epithel Cells (Auto) 5-10 /lpf (0-5) H 02/03/24 15:23 Urine Bacteria (Auto) Negative (Negative) 02/03/24 15:23 Electrocardiogram Date: 11/16/18 Findings: + NSR @ (@ 68 w/ SA) Chest X-Ray Date: 02/03/24 Findings: + infiltrate (new left basilar airspace opacity c/w pneumonia) Echocardiogram EF: 45% LV Function: dysfunctional RWMA: + hypokinetic Valvular Disease: +
--- NOTE | 2024-02-04 12:33 | Urology Progress Note ---
Date of Service February 04, 2024 Assessment & Plan (1) Ureterolithiasis: Plan 63yo M admitted with pneumonia and right flank pain secondary to an obstructing ureteral stone. - CT A/P reviewed - 4 mm obstructive stone is in the right proximal ureter with associated hydronephrosis. - He continues to have severe right sided pain - Afebrile and hemodynamically stable. - Labs reviewedWBC 8.61, hemoglobin 11.1, creatinine 1.08. - UA without signs of infection. - Blood cultures pending. - On Ceftriaxone and Doxycycline. - We discussed acute stone management with cystoscopy and stent placement. Ureteral stents were discussed as well as postoperative issues and pain management. He is aware a second procedure will be needed for stone treatment. Risks and benefits were discussed. All questions were answered. He would like to proceed with right ureteral stent placement. - Plan for OR today for cystoscopy, right retrograde pyelogram, right ureteral stent placement. - Risks and benefits discussed as per consent. - Keep NPO. - Continue supportive care, antibiotics, and pain management. - Urology will follow. Admission and Anticipated Discharge Date Admission Date: February 03, 2024 Supervising Physician Co-Signing Physician Notes agree with above - plan for cysto, right ureteral stent Subjective Patient examined at bedside this AM. Awake, resting in bed on arrival. No acute distress. He reports severe right sided pain, manageable with medication. Voiding without issue. Denies f/c/n/v. Has been NPO. Review of Systems Constitutional: as per Subjective / HPI Genitourinary: + as per Subjective / HPI Physical Exam Constitutional: no acute distress Respiratory: no respiratory distress and no labored breathing Musculoskeletal: Head/Neck/Chest: normocephalic Skin: No visible rashes or lesions to exposed skin areas Neurologic: moves all extremities and awake Psychiatric: A+Ox3, euthymic affect Results & Data Vital Signs (Past 12 Hours) Vital Signs Temp Pulse Pulse Resp BP BP Pulse Ox 02/04/24 08:02 02/04/24 07:32 37 C 78 14 139/77 97 02/04/24 07:02 75 02/04/24 04:19 72 02/04/24 03:56 02/04/24 03:56 36.4 C L 79 128/66 18 L 02/04/24 03:30 73 16 95 02/04/24 03:20 76 16 93 03/19/24 03:10 74 17 95 02/04/24 03:00 80 16 103/64 93 02/04/24 03:00 80 16 93 02/04/24 02:50 72 15 95 02/04/24 02:40 72 16 95 02/04/24 02:30 72 16 95 02/04/24 02:20 74 17 94 02/04/24 02:10 72 16 95 02/04/24 02:00 77 18 115/74 95 02/04/24 02:00 77 18 95 02/04/24 01:50 79 17 94 02/04/24 01:40 81 15 96 02/04/24 01:33 81 17 95 02/04/24 01:20 72 16 97 02/04/24 01:10 72 16 97 02/04/24 01:00 74 17 117/78 98 02/04/24 01:00 74 17 98 02/04/24 00:50 70 14 98 02/04/24 00:40 77 15 96 02/04/24 00:30 72 16 96 02/04/24 00:20 77 17 96 02/04/24 00:10 75 17 95 02/04/24 00:01 76 16 96 02/04/24 00:01 76 16 129/71 96 02/04/24 00:00 76 17 96 02/03/24 23:50 74 16 96 02/03/24 23:40 73 16 96 02/03/24 23:30 76 17 95 02/03/24 23:27 83 16 96 02/03/24 23:27 83 16 106/69 96 02/03/24 23:23 86 02/03/24 23:20 87 26 H 02/03/24 23:10 79 21 96 02/03/24 23:00 113/70 02/03/24 23:00 76 16 94 02/03/24 22:50 76 15 92 02/03/24 22:40 76 15 93 02/03/24 22:30 82 22 95 02/03/24 22:30 121/71 O2 Del Method 02/04/24 08:02 Room Air 02/04/24 07:32 Room Air 02/04/24 07:02 02/04/24 04:19 02/04/24 03:56 Room Air 02/04/24 03:56 Room Air 02/04/24 03:30 02/04/24 03:20 02/04/24 03:10 02/04/24 03:00 02/04/24 03:00 02/04/24 02:50 02/04/24 02:40 02/04/24 02:30 02/04/24 02:20 02/04/24 02:10 02/04/24 02:00 02/04/24 02:00 02/04/24 01:50 02/04/24 01:40 02/04/24 01:33 02/04/24 01:20 02/04/24 01:10 02/04/24 01:00 02/04/24 01:00 02/04/24 00:50 02/04/24 00:40 02/04/24 00:30 02/04/24 00:20 02/04/24 00:10 02/04/24 00:01 02/04/24 00:01 Room Air 02/04/24 00:00 02/03/24 23:50 02/03/24 23:40 02/03/24 23:30 02/03/24 23:27 02/03/24 23:27 Room Air 02/03/24 23:23 02/03/24 23:20 02/03/24 23:10 02/03/24 23:00 02/03/24 23:00 02/03/24 22:50 02/03/24 22:40 02/03/24 22:30 02/03/24 22:30 PG Care Time/CCT Total # of Minutes Spent Total Time Spent with Patient: Total time spent is greater than 50% in coordination of care (as documented) at patient's floor/unit and/or counseling patient: Coding Level of Care Code 40532 SUB INP/OBS CARE 2/35MIN Diagnoses Ureterolithiasis N20.1
[2024-02-04] MEDS ORDERED: NALOXONE HCL 0.4 MG/1 ML VIAL/CARP IV PRN (13:28)
[2024-02-04] MEDS ORDERED: ATROPINE SULFATE 0.1 MG/ML 10ML SYR IV PRN (13:28)
[2024-02-04] MEDS ORDERED: ePHEDrine sulfate 50 MG/ML AMP IV PRN (13:28)
[2024-02-04] MEDS ORDERED: fentaNYL citrate PF 100 MCG/2 ML VIAL IV PRN (13:28)
[2024-02-04] MEDS ORDERED: PROMETHAZINE HCL 6.25 MG in SODIUM CHLORIDE 0.9% 50 ML IV PRN (13:28)
[2024-02-04] MEDS ORDERED: ONDANSETRON INJ 2 MG/ML 2 ML VIAL IV PRN (13:28)
[2024-02-04] MEDS ORDERED: LABETALOL HCL IV 5 MG/ML 20ML IV PRN (13:28)
[2024-02-04] MEDS ORDERED: FLUMAZENIL 0.1 MG/1 ML 10 ML VIAL IV PRN (13:28)
[2024-02-04] MEDS ORDERED: fentaNYL citrate PF 100 MCG/2 ML VIAL ONE (14:14)
[2024-02-04] MEDS ORDERED: PROPOFOL IV EMULSION 10 MG/ML 20 ML VIAL IV ONE (14:14)
[2024-02-04] MEDS ORDERED: MIDAZOLAM HCL 1 MG/ML 2ML VIAL ONE (14:14)
[2024-02-04] MEDS ORDERED: DEXAMETHASONE SOD INJ 4 MG/ML VIAL ONE (14:26)
[2024-02-04] MEDS ORDERED: ONDANSETRON INJ 2 MG/ML 2 ML VIAL ONE (14:26)
[2024-02-04] MEDS ORDERED: LIDOCAINE 2% 2 ML VIAL/AMP(20MG/ML) INFIL ONE (14:26)
--- NOTE | 2024-02-04 14:39 | Operative Report ---
PG Post Operative Report Pre & Post Diagnosis Operation Date: 02/04/24 09:40 Pre-Op Diagnosis: Ureterolithiasis Post-Op Diagnosis: Ureterolithiasis I identified the patient and participated in the time-out.: Yes Procedure Operation Date: 02/04/24 09:40 Actual Procedures p Cystoscopy, Right Retrograde Pyelogram, Right Stent Placement(Right) - King Banuelos MD Surgeon King Banuelos MD Commercial Production Editor none Estimated Blood Loss 0 Findings Consistent with Post-Op Diagnosis Specimens none Description of Procedure The patient was identified in the preoperative holding area, appropriate informed consents were reviewed and completed and the patient was transferred to the operative suite. Upon arrival, appropriate antibiotics and anesthesia were administered and the patient was placed in dorsal lithotomy position and prepped and draped in sterile fashion. To begin the case to pass 21 Samoan cystoscope with 30 degree lens and visual pocket operator peer inspection revealed a healthy-appearing urethra and a small prostate. His bladder was inspected and had no tumors or other abnormalities. Ureteral orifices were in orthotopic position. I cannulated the right UO with a sensor wire which advanced the kidney without difficulty. There was an immediate discharge of urine from the kidney. I then placed a 6 Samoan by 26 cm double-J stents in good curl in the kidney as well as the bladder. He was reversed of anesthesia and taken to the recovery room in stable condition, there were no complications I attest to the content of the Intraoperative Record and any orders documented therein. Any exceptions are noted below.
--- NOTE | 2024-02-04 14:54 | Fluoroscopy Report ---
FL KUB CLINICAL HISTORY: RIGHT URETERAL STENT COMPARISON STUDY: None. FLUOROSCOPY TIME: 4 seconds. FLUOROSCOPY IMAGES: 1 Ka,r: 1. mGy FINDINGS: Single fluoroscopic spot images of the right side of the abdomen demonstrates a right urete ral stent. Only proximal portion of the stent is identified and appears in good position. IMPRESSION: Fluoroscopic assistance as above. ACT 112: Negative or not required by law. Electronically signed by: Vidal oSto M.D. 02/04/2024 2:52 PM
--- NOTE | 2024-02-04 15:06 | Anesthesiology Progress Note ---
Date of Service February 04, 2024 Anesthesia Post Procedure Vital Signs Vital Signs: Temp Pulse Pulse Resp BP BP Pulse Ox 02/04/24 15:00 87 16 125/67 94 02/04/24 14:50 83 19 118/69 93 02/04/24 14:41 36.6 C 81 19 112/65 93 02/04/24 12:57 36.5 C 79 20 144/74 H 95 02/04/24 11:19 36.5 C 72 12 125/67 95 02/04/24 08:02 02/04/24 07:32 37 C 78 14 139/77 97 02/04/24 07:02 75 02/04/24 04:19 72 02/04/24 03:56 02/04/24 03:56 36.4 C L 79 128/66 18 L 02/04/24 03:30 73 16 95 02/04/24 03:20 76 16 93 02/04/24 03:10 74 17 95 02/04/24 03:00 80 16 103/64 93 02/04/24 03:00 80 16 93 02/04/24 02:50 72 15 95 02/04/24 02:40 72 16 95 02/04/24 02:30 72 16 95 02/04/24 02:20 74 17 94 02/04/24 02:10 72 16 95 02/04/24 02:00 77 18 115/74 95 02/04/24 02:00 77 18 95 02/04/24 01:50 79 17 94 02/04/24 01:40 81 15 96 02/04/24 01:33 81 17 95 02/04/24 01:20 72 16 97 02/04/24 01:10 72 16 97 02/04/24 01:00 74 17 117/78 98 02/04/24 01:00 74 17 98 02/04/24 00:50 70 14 98 02/04/24 00:40 77 15 96 02/04/24 00:30 72 16 96 02/04/24 00:20 77 17 96 02/04/24 00:10 75 17 95 02/04/24 00:01 76 16 96 02/04/24 00:01 76 16 129/71 96 02/04/24 00:00 76 17 96 02/03/24 23:50 74 16 96 02/03/24 23:40 73 16 96 0318/24 23:30 76 17 95 02/03/24 23:27 83 16 96 02/03/24 23:27 83 16 106/69 96 02/03/24 23:23 86 02/03/24 23:20 87 26 H 02/03/24 23:10 79 21 96 02/03/24 23:00 113/70 02/03/24 23:00 76 16 94 02/03/24 22:50 76 15 92 02/03/24 22:40 76 15 93 02/03/24 22:30 82 22 95 02/03/24 22:30 121/71 02/03/24 22:20 79 16 96 02/03/24 22:20 80 18 118/70 95 02/03/24 22:18 83 17 96 02/03/24 22:18 118/70 02/03/24 22:10 79 17 92 02/03/24 22:00 80 17 93 02/03/24 21:50 77 14 91 02/03/24 21:40 77 15 92 02/03/24 21:30 83 16 93 02/03/24 21:20 86 20 94 02/03/24 21:10 85 95 02/03/24 21:00 86 96 02/03/24 20:50 82 95 02/03/24 20:40 77 95 02/03/24 20:30 86 96 02/03/24 20:20 77 14 02/03/24 20:10 82 20 95 02/03/24 20:06 77 02/03/24 20:00 96 02/03/24 19:50 78 95 02/03/24 19:40 78 96 02/03/24 19:30 119/64 02/03/24 19:30 93 H 14 96 02/03/24 19:20 78 98 02/03/24 19:10 81 95 02/03/24 19:00 82 16 96 02/03/24 19:00 116/71 02/03/24 18:50 81 97 02/03/24 18:40 82 4 L 94 02/03/24 18:32 130/57 L 02/03/24 18:32 86 12 96 02/03/24 18:30 82 12 96 02/03/24 18:20 85 22 96 02/03/24 18:10 85 25 H 95 02/03/24 18:01 81 22 96 02/03/24 18:01 123/69 02/03/24 18:00 80 18 96 02/03/24 17:50 75 18 95 02/03/24 17:40 85 19 97 02/03/24 17:30 78 19 95 02/03/24 17:14 78 18 103/48 L 96 02/03/24 16:57 76 02/03/24 15:45 76 97 02/03/24 15:45 77 18 116/77 97 O2 Del Method 02/04/24 15:00 Room Air 02/04/24 14:50 Room Air 02/04/24 14:41 Room Air 02/04/24 12:57 Room Air 02/04/24 11:19 Room Air 02/04/24 08:02 Room Air 02/04/24 07:32 Room Air 02/04/24 07:02 02/04/24 04:19 02/04/24 03:56 Room Air 02/04/24 03:56 Room Air 02/04/24 03:30 02/04/24 03:20 02/04/24 03:10 02/04/24 03:00 02/04/24 03:00 02/04/24 02:50 02/04/24 02:40 02/04/24 02:30 02/04/24 02:20 02/04/24 02:10 02/04/24 02:00 02/04/24 02:00 02/04/24 01:50 02/04/24 01:40 02/04/24 01:33 02/04/24 01:20 02/04/24 01:10 02/04/24 01:00 02/04/24 01:00 02/04/24 00:50 02/04/24 00:40 02/04/24 00:30 02/04/24 00:20 02/04/24 00:10 02/04/24 00:01 02/04/24 00:01 Room Air 02/04/24 00:00 02/03/24 23:50 02/03/24 23:40 02/03/24 23:30 02/03/24 23:27 02/03/24 23:27 Room Air 02/03/24 23:23 02/03/24 23:20 02/03/24 23:10 02/03/24 23:00 02/03/24 23:00 02/03/24 22:50 02/03/24 22:40 02/03/24 22:30 02/03/24 22:30 02/03/24 22:20 02/03/24 22:20 Room Air 02/03/24 22:18 02/03/24 22:18 02/03/24 22:10 02/03/24 22:00 02/03/24 21:50 02/03/24 21:40 02/03/24 21:30 02/03/24 21:20 02/03/24 21:10 02/03/24 21:00 02/03/24 20:50 02/03/24 20:40 02/03/24 20:30 02/03/24 20:20 02/03/24 20:10 02/03/24 20:06 02/03/24 20:00 02/03/24 19:50 02/03/24 19:40 02/03/24 19:30 02/03/24 19:30 02/03/24 19:20 02/03/24 19:10 02/03/24 19:00 02/03/24 19:00 02/03/24 18:50 02/03/24 18:40 02/03/24 18:32 02/03/24 18:32 02/03/24 18:30 02/03/24 18:20 02/03/24 18:10 02/03/24 18:01 02/03/24 18:01 02/03/24 18:00 02/03/24 17:50 02/03/24 17:40 02/03/24 17:30 02/03/24 17:14 Room Air 02/03/24 16:57 02/03/24 15:45 Room Air 02/03/24 15:45 Room Air Pain Intensity Flank: Pain Intensity: 4 Transfer of Care Handoff Completed per policy Notes Mental Status: alert / awake / arousable Patient Amnestic to Procedure: Yes Nausea / Vomiting: adequately controlled Pain: adequately controlled Airway Patency, RR, SpO2: stable & adequate BP & HR: stable & adequate Hydration State: stable & adequate Anesthetic Complications: no major complications apparent
[2024-02-04] MEDS: POLYETHYLENE (MIRALAX) 17 GM PACK PO SCH (15:29)
[2024-02-04] MEDS: cefTRIAXone SODIUM 2,000 MG in DEXTROSE 5 % MINI-B 50 ML IV SCH (15:37)
[2024-02-04] MEDS ORDERED: Nursing to Pharmacy Communication SCH (16:15)
[2024-02-04] MEDS: MAGNESIUM HYDROXIDE SUSP 30 ML UDC PO ONE ×2 (16:30)
[2024-02-05 07:03] LABS: Mean Corpuscular Hemoglobin 27.7 pg (25.0-34.0); Mean Corpuscular Hgb Conc 33.3 g/dL (32.0-36.0); Mean Corpuscular Volume 83.1 fL (80.0-100.0); Mean Platelet Volume 10.2 fL (9.4-12.4); Platelet Count 232 K/uL (130-400); RDW Coefficient of Variation 13.5 % (11.5-14.5); RDW Standard Deviation 41.1 fL (36.4-46.3); Red Blood Count 3.97 M/uL (4.70-6.10); White Blood Count 9.23 K/ul (4.8-10.8)
[2024-02-05 08:23] LABS: BUN Creatinine Ratio 24.5 (10-20); Calcium 8.8 mg/dl (8.6-10.3); Creatinine Clr Calc Pharmacy 91.1 ml/min; Est GFR (African American) 90.9 ml/min; Est GFR (Non-African American) 78.4 ml/min; Potassium 4.2 mmol/L (3.5-5.1)
[2024-02-05] MEDS: ASPIRIN 81 MG ECTAB PO SCH (08:37)
--- NOTE | 2024-02-05 12:03 | Discharge Summary ---
Date of Service February 05, 2024 Admission HPI Per Admitting Provider This is a 63-year-old male with PMH of systolic heart failure due to idiopathic cardiomyopathy (with return to near normal LV systolic dysfunction), hypertension, prediabetes, history of migraine and other medical problems listed below who was sent in by MERARY Contreras in preop evaluation prior to urologic lithotripsy procedure. Per reviewed outpatient note, patient has been feeling well up until this past Saturday, when he had back pain that radiated into groin and went to [facility] on 01/24, where he was diagnosed with a kidney stone. Was evaluated at [facility] on 01/29 with difficulty urinating but urinalysis not consistent with a UTI, blood cultures without growth to date. Saw Dr. Kellogg of urology on 01/30 with abdominal x-ray revealing right nephrolithiasis and significant colonic fecal material. Presents today feeling progressively worse over the weekend. Poor p.o. intake, feeling lightheaded with movement. Also endorsing night sweats over the past 2 nights. Endorsing diffuse abdominal pain, nausea and dry heaves without emesis. Endorses dysuria and inability to fully empty bladder but denies gross hematuria. Normal bowel movement earlier today. Was noted to be ill-appearing with borderline low blood pressure at cardiology pre-op appointment earlier today and was recommended to come to ED for further evaluation. Recommendation to hold lisinopril, continue carvedilol given hypotension and hold aspirin only if needed for 3-5 days, resuming when safe. Admission Exam Per Admitting Provider General Appearance: WD/WN, vitals as above, NAD, sitting up in bed, pleasant, conversing easily Head: normocephalic, atraumatic Eyes: normal inspection, PERRL, conjunctivae normal, anicteric sclerae ENT: external ear and nose normal, oropharynx normal Neck: normal visual inspection, trachea midline, no thyromegaly Respiratory: normal respiratory effort, rales left base, otherwise clear to auscultation, no wheezing. No accessory muscle use Cardiovascular: regular rate, rhythm,+ RM, normal peripheral pulses, no BLE edema. Vessels: no JVD Chest: normal inspection of chest Abdomen/GI: normal bowel sounds, soft, nontender, no hepatosplenomegaly Extremities/Musculoskeletal: no cyanosis or clubbing, extremities motor strength 5/5 Neurologic: PERRL, EOMI, accommodation nl, no face palsy, no dysarthria, CN's II-XI intact bilaterally and moves all extremities Psychiatric: A+Ox3, euthymic affect Skin: no rashes, normal color, warm/dry Principal Diagnosis Left lower lobe pneumonia Right ureteral stone, obstructive History of systolic heart failure due to idiopathic cardiomyopathy Discharge Exam Constitutional: WD/WN, vitals as above, NAD, sitting up in bed, pleasant, conver sing easily Respiratory: normal respiratory effort, lungs clear to auscultation, no wheeze, rales, rhonchi. Normal insp/exp effort, no accessory muscle use Cardiovascular: RRR, no murmur, no edema Vessels: no JVD or carotid bruit Chest: normal inspection of chest Abdomen: no tenderness, soft. BS nl. Musculoskeletal: no cyanosis or clubbing, extremities motor strength 5/5 Skin: no rashes, warm and dry normal turgor Neurologic: PERRL, EOMI, accommodation nl, no face palsy, no dysarthria CN's II- XI intact bilaterally and moves all extremities Psychiatric: A+Ox3, euthymic affect Discharge Data Allergies Allergy/AdvReac Type Severity Reaction Status Date / Time acetaminophen [From Vicodin] Allergy Intermediate Gastrointestinal Verified 11/16/18 15:07 Upset atorvastatin [From Lipitor] Allergy Intermediate MUSCLE Verified 11/16/18 15:07 ACHES hydrocodone [From Vicodin] Allergy Intermediate Gastrointestinal Verified 11/16/18 15:07 Upset simvastatin [From Zocor] Allergy Intermediate MUSCLE Verified 11/16/18 15:07 ACHES Consultations 02/03/24 17:23 ED Decision to Admit Stat 02/03/24 18:06 Consult Urology Routine Procedures Performed Operation Date: 02/04/24 09:40 Actual Procedures p Cystoscopy, Right Retrograde Pyelogram, Right Stent Placement(Right) - King Banuelos MD Ordered Studies 02/03/24 14:47 CT Abd and Pelvis [CT abd pelvis IV con only] Stat 02/04/24 FL KUB Routine Hospital Course (1) Ureterolithiasis: (2) 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: (3) HTN (hypertension): (4) Peptic ulcer disease: Plan Per prior attending with addendum: This is a 63-year-old male with PMH of systolic heart failure due to idiopathic cardiomyopathy (with return to near normal LV systolic function), hypertension, dyslipidemia, prediabetes, history of migraine and other medical problems listed below who was sent in by MERARY Contreras in preop evaluation prior to urologic lithotripsy procedure and found to have LLL PNA, obstructive ureteral stone. LLL PNA Patient reports malaise, cough, poor PO intake over the past week CXR on admission personally reviewed; left basilar opacity Started on Rocephin, doxy in ED Added Mucinex, PRN tessalon pearles, incentive spirometry Saturating at 96% on room air Will need follow-up chest x-ray in 1 month to ensure resolution. Obstructing ureteral stone Ongoing renal colic pain over the past 7-10 days, seen in [facility] and [facility] Following with [facility] Dr Kellogg Went to [facility] for clearance day of admission- was cleared from cardiac perspective but directed to ED for further infectious dz workup as above CT abd/pelvis with obstructive stone is seen in the right proximal ureter with associated hydronephrosis Discussed with urology; plan for cystoscopy with right stent placement. Continue Flomax Continue IV fluids. 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 Has had return to near normal LV systolic function with recent TTE with EF 45- 49%, mild aortic valve stenosis Monitor volume status closely HTN BP slightly lower than usual. Continue carvedilol, hold lisnopril for now PUD Seen in clinic recently for dyspepsia, belching, e/o cholelithiasis on outpatient imaging Started on Pepcid BID, Carafate on 01/28 DVT Ppx: SCDs for now Code status: FULL PCP: [facility] Dispo: Patient to undergo urological procedure today. Will need to be monitored after the procedure. Possible DC in a.m. depending on clinical status. Addendum: 01/07/2024: Patient was seen and examined at bedside. Patient is status post right ureteral stent placement by urology. Patient is hemodynamically stable and would like to go home. Patient reports improving cough. Patient denies shortness of breath. Patient will be discharged on antibiotic to complete the course of pneumonia, patient has been made aware to get repeat chest imaging in about 6 weeks time to document resolution of pneumonia. Patient is also made aware to follow-up with urology within a week time upon discharge. He is being discharged with following instruction at the point of discharge: Follow-up with your primary care physician within a week time and likely you will need labs CBC/CMP/magnesium/phosphorus. For your left lower lobe pneumonia, you will be discharged on antibiotic to complete the course. You will need repeat chest x-ray in 6 weeks time to document resolution of your pneumonia. For your ureteral stone, you underwent right ureteral stent placement by urology. You will need to follow-up with urology in a week time upon discharge to discuss further management of your renal stone. Take your medications as prescribed. Please make sure that you are able to get your medications today by calling your pharmacy before you leave the hospital so that your treatment continuity is not broken. Please note the above document was generated using voice recognition software. It may contain grammatical, syntax or spelling errors. Any formal questions or concerns about the content, text or information contained within the body of this dictation should be directly addressed to the provider for clarification Home Health Attestation I certify that this patient is under my care and that I, or a physicians children's nursery assistant working with me, had a face to-face encounter that meets the home health [id number] encounter requirements with this patient. The encounter with the patient was in whole, or in part, for the following medical condition, which is the primary reason for home health care (list medical condition): I certify that, based on my findings, the following services are medically necessary home health services: My clinical findings support the need for the above services because: Further, I certify that my clinical findings support that this patient is homebound (i.e. absences from home require considerable and taxing effort and are for medical reasons or tenriism services or infrequently or of short duration when for other reasons) because: Certification for Home Health Services: Based on the above findings, I certify that this patient is confined to the home and needs intermittent fdc care, physical therapy and/or speech therapy or continues to need occupational therapy. The patient is under my care, and I have initiated the establishment of the plan of care. This patient will be followed by a physician who will periodically review the plan of care. Total Time Total Time Spent Total Time Spent (In Minutes): 45 Discharge Plan Discharge Items Patient Disposition: Home - Self-Care Reason For Visit: CAP, OBSTRUCTING URETERAL STONE Discharge Diagnosis: Left lower lobe pneumonia Right ureteral stone, obstructive History of systolic heart failure due to idiopathic cardiomyopathy Activity: Resume your previous activity Non-emergency contact: Primary Care Provider Call non-emergency contact if: you have any medication questions, your symptoms worsen and your temperature is above 101.5 Follow-up/Referrals: Viji Soler DO [Primary Care Provider] - Diet: Heart Healthy Addtl Attending Provider Instructions: Follow-up with your primary care physician within a week time and likely you will need labs CBC/CMP/magnesium/phosphorus. For your left lower lobe pneumonia, you will be discharged on antibiotic to complete the course. You will need repeat chest x-ray in 6 weeks time to document resolution of your pneumonia. For your ureteral stone, you underwent right ureteral stent placement by urology. You will need to follow-up with urology in a week time upon discharge to discuss further management of your renal stone. Take your medications as prescribed. Please make sure that you are able to get your medications today by calling your pharmacy before you leave the hospital so that your treatment continuity is not broken. Pending Studies at Discharge: Yes Stand-Alone Forms: [facility], Smoking Cessation Medications and DC Order Prescriptions: New guaifenesin [Mucinex] 600 mg Tablet Extended Release 12hr 600 mg PO Q12 5 Days Qty: 10 0RF doxycycline hyclate 100 mg tablet 100 mg PO BID 6 Days Qty: 12 0RF cefdinir 300 mg capsule 300 mg PO BID 6 Days Qty: 12 0RF Probiotic 3 billion cell capsule 3,000 mmu cells PO DAILY 7 Days Qty: 7 0RF Rx Instructions: administer with a meal phenazopyridine [Pyridium] 100 mg tablet 100 mg PO TID PRN (Reason: dysuria) 2 Days Qty: 6 0RF Continued cyanocobalamin (vitamin B-12) [Vitamin B-12] 1,000 mcg Tablet 1,000 mcg PO DAILY aspirin [Aspir-81] 81 mg Tablet,Delayed Release (Dr/Ec) 81 mg PO DAILY Rx Instructions: not currently taking due to upcoming surgery carvedilol 3.125 mg Tablet 3.125 mg PO BID lisinopril 10 mg Tablet 10 mg PO QAM rosuvastatin 5 mg Tablet 20 mg PO QAM fenofibrate nanocrystallized 145 mg Tablet 145 mg PO QAM omega 1-lke-yvu-fish oil [Fish Oil] 1,000 mg (120 mg-180 mg) Capsule 0 mg PO DAILY Rx Instructions: not currently taking due to upcoming surgery sucralfate 1 gram tablet 1 g PO TID oxycodone-acetaminophen 5-325 mg tablet 1 tab PO Q4H PRN (Reason: Pain, Severe) famotidine 20 mg tablet 20 mg PO BID tamsulosin 0.4 mg capsule 0.4 mg PO DAILY ondansetron 4 mg tablet,disintegrating 4 mg PO Q8H PRN (Reason: N/V) Vitamin C See Rx Instructions .ROUTE .COMPLEX Rx Instructions: as directed, unknown dose Vitamin D3 See Rx Instructions .ROUTE .COMPLEX Rx Instructions: as directed, unknown dose Discharge Orders: Discharge Order (Routine); Ordered 02/05/24 Ordered By: Rodney Mahajan Admission Data Admit Date/Time: 02/03/24 18:26 Attending Provider: Rodney Mahajan Admit Provider: Demetra Pantoja Primary Care Provider: Viji Soler Other Providers: Demetra Pantoja; Trey Ryan
--- NOTE | 2024-02-05 12:53 | Urology Progress Note ---
Date of Service February 05, 2024 Assessment & Plan (1) Ureterolithiasis: Plan 63yo M admitted with pneumonia and right flank pain secondary to an obstructing ureteral stone. - POD #1 s/p Cystoscopy, Right Retrograde Pyelogram, Right Stent Placement with Dr. Banuelos. - Tolerating the stent with minimal bother. - Afebrile and hemodynamically stable. - Labs- WBC 9.23, Hemoglobin 11, Creatinine 1.02. - Blood cultures prelim no growth - On Doxycycline and Ceftriaxone. - Voiding spontaneously. - Okay to d/c from perspective when medically stable - Recommend d/c with course of PO antibiotics, Tamsulosin, prn Pyridium and prn pain medication for stent management - Expected clinical course reviewed, all questions answered. - Plan to follow-up outpatient with our service as scheduled on 02/07/24. - Urology will sign-off. Please call with any further questions or concerns. Admission and Anticipated Discharge Date Admission Date: February 03, 2024 Subjective Pt examined at bedside this AM. No acute distress. Tolerating the ureteral stent with minimal bother. Voiding without issue. Some hematuria and dysuria. Denies f/c/n/v. Review of Systems Constitutional: as per Subjective / HPI Genitourinary: + as per Subjective / HPI Physical Exam Constitutional: no acute distress Respiratory: no respiratory distress and no labored breathing Skin: No visible rashes or lesions to exposed skin areas Neurologic: moves all extremities and awake Psychiatric: A+Ox3, euthymic affect Results & Data Vital Signs (Past 12 Hours) Vital Signs Temp Pulse Resp BP Pulse Ox O2 Del Method 02/05/24 07:54 36.7 C 76 16 130/69 95 Room Air PG Care Time/CCT Total # of Minutes Spent Total Time Spent with Patient: Total time spent is greater than 50% in coordination of care (as documented) at patient's floor/unit and/or counseling patient: Coding Level of Care Code 85907 SUB INP/OBS CARE 2/35MIN Diagnoses Ureterolithiasis N20.1
== END 2024-02-05 14:41 | disposition home or self-care (01) | DRG 659 ==
LOC: ED 14:19 → SUATTDRO 18:26 → EDINP 18:26 → 2N 02-04 03:38 → 3N 02-04 21:50

== ENCOUNTER 2024-05-20 10:24 | Inpatient (IN) ==
--- NOTE | 2024-05-19 10:33 | PAT Medication Instructions ---
Medication Instructions Date of Service May 19, 2024 Home Medications Medication Instructions Recorded amoxicillin 875 mg-potassium 1 tab PO BID #20 tabs 05/17/24 clavulanate 125 mg tablet sulfamethoxazole 800 1 tab PO BID 10 days #20 tabs 05/17/24 mg-trimethoprim 160 mg tablet (Bactrim DS) aspirin 81 mg tablet,delayed release (Aspir-) 81 mg PO QAM carvedilol 3.125 mg tablet 3.125 mg PO BID fenofibrate nanocrystallized 145 mg tablet 145 mg PO QAM lisinopril 10 mg tablet 10 mg PO QAM omega 9-qdp-hjt-fish oil 1,000 mg (120 mg-180 mg) capsule (Fish Oil) 1,000 mg PO QAM rosuvastatin 5 mg tablet 20 mg PO QAM Vitamin D3 1 dose PO QAM ondansetron 4 mg disintegrating tablet 4 mg PO Q8H PRN lactobacillus combination no.4 3 billion cell capsule (Probiotic) 3,000 mmu cells PO QAM amoxicillin 875 mg-potassium clavulanate 125 mg tablet 1 tab PO BID sulfamethoxazole 800 mg-trimethoprim 160 mg tablet (Bactrim DS) 1 tab PO BID multivitamin 1 tab PO QAM ASK your prescriber and surgeon aspirin 81 mg tablet,delayed release (Aspir-) 81 mg PO QAM STOP taking 2 weeks before surgery (or as soon as possible if surgery is within 2 weeks) omega 9-szf-ljn-fish oil 1,000 mg (120 mg-180 mg) capsule (Fish Oil) 1,000 mg PO QAM STOP taking 48 hours before surgery fenofibrate nanocrystallized 145 mg tablet 145 mg PO QAM DO NOT take the morning of surgery lisinopril 10 mg tablet 10 mg PO QAM Vitamin D3 1 dose PO QAM lactobacillus combination no.4 3 billion cell capsule (Probiotic) 3,000 mmu cells PO QAM multivitamin 1 tab PO QAM Take morning of surgery With a small sip of water, OTHERWISE NOTHING TO EAT OR DRINK AFTER MIDNIGHT: carvedilol 3.125 mg tablet 3.125 mg PO BID rosuvastatin 5 mg tablet 20 mg PO QAM ondansetron 4 mg disintegrating tablet 4 mg PO Q8H PRN(if needed) amoxicillin 875 mg-potassium clavulanate 125 mg tablet 1 tab PO BID sulfamethoxazole 800 mg-trimethoprim 160 mg tablet (Bactrim DS) 1 tab PO BID Take evening before surgery carvedilol 3.125 mg tablet 3.125 mg PO BID ondansetron 4 mg disintegrating tablet 4 mg PO Q8H PRN(if needed) amoxicillin 875 mg-potassium clavulanate 125 mg tablet 1 tab PO BID sulfamethoxazole 800 mg-trimethoprim 160 mg tablet (Bactrim DS) 1 tab PO BID Other Notes If you have any questions please call us at [phone] or [phone] or [phone] or [phone]
--- NOTE | 2024-05-19 10:48 | Anesthesiology Consultation ---
Date of Service May 19, 2024 Assessment & Plan (1) Encounter for pre-operative examination: Chart Review Chart Review: Acceptable Risk for Surgery and Patient seen in Pre Admission Testing - Check BSG AM DOS MRSA infection per right knee wound culture Per PAT appt on 05/19/24, no recent illness/disease exposures, illness related symptoms, or recent illness/disease positive tests. Will leave to surgeon's discretion if preop Covid testing needed Seen in [place] ED 05/17/24= seen for fluid build up in prepatella bursa. On Keflex x 4 days with no improvement. Right LE ultrasound done as outpatient showed no DVT. No concerning labs. Culture of drainage pending. Given IV Unasyn, IV Ceftriaxone, and oral Bactrim. Will stop Keflex and start Augmentin. Follow up with ortho Patient seen by PCP 05/14/24= seen for right knee and leg swelling. Present x 3 weeks. Tender and draining scant purulant drainage. Pain and swelling of right LE leg- will check STAT Doppler. Start Keflex. Can continue aspiration at follow up visit. HF- stable- continue meds. S/p recent lithotripsy. Cysto, laser stent right 02/11/24= Done under [facility] with LMA #5. Patient seen by cardio 02/03/24= patient seen for preop cardio consultation. Scheduled for right ESWL on 02/11/24 with [facility] in [place]. Has been very active up until 01/24/24. Patient on 01/24/24 having back problems and groin pain. Seen in [facility] [address] 01/25/24- dx'ed with kidney stone. Presented to [facility] on 01/30/24 with fever and difficulty urinating. Patient presents today cardio office today feeling worse than prior. Decreased appetite. Stopped Omeprazole due to ineffectiveness. Dizzy. Soaking night sweats, diffuse abdominal pain. Nausea. "Patient ill-appearing; infection concern noted. Recommend referral back to the ER for further evaluation, observation, admission. Hold lisinopril given observed hypotension. Continue carvedilol for now. If aspirin must be held, please hold for the shortest period of time (3-5 days) and resume when determined to be safe. Routine cardiology follow-up." (Patient later admitted for pneumonia and ureteral stone- had cysto/stent placement 3/19/24 and then laser litho 02/11/24 without issues- patient has since fully recovered from pneumonia; no current urology issues) History Surgery Operation Date: 05/20/24 12:15 Proposed Procedures p Right Knee Pre Patella Bursa Incision and Drainage - Francois Alfonso MD Height/Weight Height: 5 ft 11 in Weight: 103.3 kg Allergies Allergy/AdvReac Type Severity Reaction Status Date / Time atorvastatin [From Lipitor] AdvReac Intermediate MUSCLE Verified 05/19/24 10:23 ACHES hydrocodone [From Vicodin] AdvReac Intermediate Gastrointestinal Verified 05/19/24 10:23 Upset simvastatin [From Zocor] AdvReac Intermediate MUSCLE Verified 05/19/24 10:23 ACHES Medications Home Medications Medication Instructions Recorded Confirmed Last Taken aspirin 81 mg tablet,delayed 81 mg PO QAM 11/16/18 05/19/24 02/03/24 release (Aspir-) carvedilol 3.125 mg tablet 3.125 mg PO BID 11/16/18 05/19/24 02/10/24 18:00 fenofibrate nanocrystallized 145 145 mg PO QAM 11/16/18 05/19/24 02/10/24 08:00 mg tablet lisinopril 10 mg tablet 10 mg PO QAM 11/16/18 05/19/24 02/10/24 18:00 omega 2-tbv-aqx-fish oil 1,000 mg 1,000 mg PO QAM 11/16/18 05/19/24 02/04/24 (120 mg-180 mg) capsule (Fish Oil) rosuvastatin 5 mg tablet 20 mg PO QAM 11/16/18 05/19/24 02/10/24 08:00 Vitamin D3 1 dose PO QAM 02/03/24 05/19/24 02/04/24 ondansetron 4 mg disintegrating 4 mg PO Q8H PRN N/V 02/03/24 05/19/24 02/10/24 tablet lactobacillus combination no.4 3 3,000 mmu cells PO QAM 02/10/24 05/19/24 02/10/24 18:00 billion cell capsule (Probiotic) amoxicillin 875 mg-potassium 1 tab PO BID #20 tabs 05/17/24 05/19/24 Unknown clavulanate 125 mg tablet sulfamethoxazole 800 1 tab PO BID 10 days #20 tabs 05/17/24 05/19/24 Unknown mg-trimethoprim 160 mg tablet (Bactrim DS) ibuprofen 800 mg tablet 800 mg PO QAM 05/19/24 05/19/24 Unknown multivitamin 1 tab PO QAM 05/19/24 05/19/24 Unknown Past Medical History Medical History Aortic stenosis Mild per 04/2023 ECHO CAD (coronary artery disease) Diagnostic cardiac catheterization in 2002 and 2011, with mild coronary atherosclerosis without obstruction.--follows with Dr. 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 "with return to near normal LV systolic function" per cardio records EF 40-49% per 04/2023 ECHO Exercise / Class Metabolic Activity II 4-5 Yardwork/Stairs/Walk up hill (one flight of stairs- no chest pain or SOB ) Past Family History Family History Other Diabetes Heart disease No family history of adverse response to anesthesia Past Surgical History Surgical History History of back surgery multiple History of cardiac catheterization "15-20" years ago - no stent History of carpal tunnel surgery of right wrist History of colonoscopy History of cystoscopy History of repair of left rotator cuff x2 History of repair of right rotator cuff x4 S/P cystoscopy with ureteral stent placement 02-11-24 @ [facility] Past Anesthesia History No Hx of Anesthesia Complications and No Family Hx of Anesthesia Complications History of PONV No Hx of PONV and No Hx of Motion Sickness Social History Smoking Status: Never smoker Do You Dip or Chew Tobacco: No Hx Alcohol Use: No Hx Substance Use: No substance use type: does not use Review of Systems - Hx of snoring- hx of sleep study- no YUE Patient denies chest pain, shortness of breath, dyspnea on exertion, reflux, cough, wheezing, palpitations. No hx of seizures, stroke, SD. 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 Neck + limited neck extension Respiratory normal respiratory effort; no respiratory distress Auscultation: lungs clear to auscultation bilaterally; no wheezes Cardiovascular Rate/Rhythm: regular rate and regular rhythm Heart Sounds: + murmur (II-III/) Vessels: no carotid bruit Musculoskeletal Spine: no pain with cervical ROM Extremities: extremities normal to inspection Psychiatric Orientation: alert Lab Results Anesthesia Preop Results Results Anesthesia Widget: WBC 8.40 K/ul (4.8-10.8) 05/17/24 Hgb 11.9 g/dl (14.0-18.0) L 05/17/24 Hct 36.9 % (42.0-52.0) L 05/17/24 Plt 219 K/uL (130-400) 05/17/24 Na 135 mmol/L (136-145) L 05/19/24 K 4.7 mmol/L (3.5-5.1) 05/19/24 Cl 100 mmol/L (98-107) 05/19/24 CO2 28 mmol/L (21-32) 05/19/24 BUN 17 mg/dl (6-23) 05/19/24 Creat 1.03 mg/dl (0.6-1.4) 05/19/24 Glucose Level 109 mg/dl (70-99(Fasting)) H 05/19/24 HA1c 6.2 % (4.5-5.6) H 05/19/24 Testing Electrocardiogram Date: 02/03/24 SR with PACs at 76bpm Otherwise normal EKG per cardio Chest X-Ray Date: 05/19/24 Findings: + NAD Echocardiogram Date: 05/17/23 EF: 45-49% LV Function: dysfunctional Other Findings: no LVH LV cavity is mildly enlarged. AV is mildly calcified. Mild AV stenosis is present. NOEMY 1.2-1.3cm2; AV max velocity 2.899m/s; AV mean PG 16.1mmHg Mild AR. Other Testing LE Unilateral Vascular Duplex 05/15/24= No evidence of DVT right lower extremity.
--- NOTE | 2024-05-19 12:34 | History & Physical Report ---
Date of Service May 19, 2024 Assessment & Plan (1) Septic prepatellar bursitis of right knee: Plan: Conservative and surgical treatment were reviewed with the patient. The patient is scheduled for a right knee I&D septic prepatellar bursitis. All potential risks, benefits, complications, alternatives, and rehab have been discussed with the patient and he wishes to proceed. His cultures are growing MRSA. He will continue with the oral Bactrim DS. The patient will be scheduled for surgery on 05/20/2024. History of Present Illness Chief Complaint: Right knee swelling and drainage Primary Care Provider: Viji Soler, This is a patient who works building [employer]. States he has a history of multiple splinters into his extremities that he normally pulls out without any issues. However, last week he had a splinter in the right lower extremity just distal to his knee. Shortly afterwards, he started having a wound and swelling at the medial aspect of the knee. His right lower extremity continues to be swollen. He was at the emergency room 3 days ago where cultures were done. He was placed on Augmentin and Bactrim DS and referred to orthopedics for evaluation. He is now being set up for surgical management. Allergies Allergy/AdvReac Type Severity Reaction Status Date / Time atorvastatin [From Lipitor] AdvReac Intermediate MUSCLE Verified 05/19/24 10:23 ACHES hydrocodone [From Vicodin] AdvReac Intermediate Gastrointestinal Verified 05/19/24 10:23 Upset simvastatin [From Zocor] AdvReac Intermediate MUSCLE Verified 05/19/24 10:23 ACHES Home Medications Medication Instructions Recorded Confirmed Type aspirin 81 mg tablet,delayed 81 mg PO QAM 11/16/18 05/19/24 History release (Aspir-) carvedilol 3.125 mg tablet 3.125 mg PO BID 11/16/18 05/19/24 History fenofibrate nanocrystallized 145 145 mg PO QAM 11/16/18 05/19/24 History mg tablet lisinopril 10 mg tablet 10 mg PO QAM 11/16/18 05/19/24 History omega 0-vtj-izz-fish oil 1,000 mg 1,000 mg PO QAM 11/16/18 05/19/24 History (120 mg-180 mg) capsule (Fish Oil) rosuvastatin 5 mg tablet 20 mg PO QAM 11/16/18 05/19/24 History Vitamin D3 1 dose PO QAM 02/03/24 05/19/24 History ondansetron 4 mg disintegrating 4 mg PO Q8H PRN N/V 02/03/24 05/19/24 History tablet lactobacillus combination no.4 3 3,000 mmu cells PO QAM 02/10/24 05/19/24 History billion cell capsule (Probiotic) amoxicillin 875 mg-potassium 1 tab PO BID #20 tabs 05/17/24 05/19/24 Rx clavulanate 125 mg tablet sulfamethoxazole 800 1 tab PO BID 10 days #20 tabs 05/17/24 05/19/24 Rx mg-trimethoprim 160 mg tablet (Bactrim DS) ibuprofen 800 mg tablet 800 mg PO QAM 05/19/24 05/19/24 History multivitamin 1 tab PO QAM 05/19/24 05/19/24 History Past Med/Surg History Problem List (Updated 05/19/24 @ 12:33 by Yomi Ross PA-C) Septic prepatellar bursitis of right knee Prepatellar bursitis (Acute) Pain in right knee (Acute) Encounter for pre-operative examination Peptic ulcer disease HTN (hypertension) Dyslipidemia Ureterolithiasis (Acute) Medical History 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 cardiomyopathy" Surgical History S/P cystoscopy with ureteral stent placement 02-11-24 @ [facility] History of repair of left rotator cuff x2 History of repair of right rotator cuff x4 History of cystoscopy History of cardiac catheterization "15-20" years ago - no stent History of carpal tunnel surgery of right wrist History of colonoscopy History of back surgery multiple Family History Other Diabetes Heart disease No family history of adverse response to anesthesia Social History Smoking Status: Never smoker Tobacco Type: Cigarettes Second Hand Exposure: No; Do You Dip or Chew Tobacco: No; Hx Alcohol Use: No Hx Substance Use: No Preferred Language: Swazi Communication Ability: Effective Computer Forensics Technician Required: No Beliefs That Will Affect Care: None Current Living Situation: Spouse Feels Safe at Home: Yes Assistive Devices: Glasses Physical Exam Constitutional: WD/WN, vitals as above no acute distress ENMT: external ear and nose normal, oropharynx normal Neck: trachea midline Respiratory: normal respiratory effort, lungs clear to auscultation Cardiovascular: Rate/Rhythm: regular rhythm Heart Sounds: + murmur Musculoskeletal: Knee: + knee abnormal to inspection (Draining wound at the anterior medial aspect of the right knee.) and + skin erythema (Mild medial right knee); no effusion and no ecchymosis Skin: no rashes, warm and dry Neurologic: normal touch/pain/proprioception Psychiatric: A+Ox3, euthymic affect Speech: normal rate/rhythm/volume of speech Results & Data Diagnostic Findings Views of the right knee show no acute fractures or dislocations. There is soft tissue swelling at the anterior aspect of the knee noted on lateral view.
[2024-05-20] MEDS: VANCOMYCIN HCL 1,500 MG in SODIUM CHLORIDE 0.9% 500 ML IV SCH (11:11)
[2024-05-20] MEDS: LR 60ML/HR IV SCH (11:12)
[2024-05-20] MEDS: LR 15ML/HR IV SCH (11:12)
[2024-05-20] MEDS ORDERED: HYDROmorphone INJ 2 MG/ML SYR/VIAL IV PRN (13:20)
[2024-05-20] MEDS ORDERED: ATROPINE SULFATE 0.1 MG/ML 10ML SYR IV PRN (13:20)
[2024-05-20] MEDS ORDERED: ePHEDrine sulfate 50 MG/ML AMP IV PRN (13:20)
[2024-05-20] MEDS ORDERED: ONDANSETRON INJ 2 MG/ML 2 ML VIAL IV PRN ×2 (13:20→16:03)
[2024-05-20] MEDS ORDERED: PROMETHAZINE HCL 6.25 MG in SODIUM CHLORIDE 0.9% 50 ML IV PRN (13:20)
[2024-05-20] MEDS ORDERED: fentaNYL citrate PF 100 MCG/2 ML VIAL IV PRN (13:20)
[2024-05-20] MEDS ORDERED: GLYCOPYRROLATE 0.2 MG/ML VIAL ONE (14:10)
[2024-05-20] MEDS ORDERED: PROPOFOL IV EMULSION 10 MG/ML 20 ML VIAL IV ONE (14:10)
[2024-05-20] MEDS ORDERED: MIDAZOLAM HCL 1 MG/ML 2ML VIAL ONE (14:10)
[2024-05-20] MEDS ORDERED: fentaNYL citrate PF 100 MCG/2 ML VIAL ONE (14:10)
[2024-05-20] MEDS ORDERED: LIDOCAINE 2% 2 ML VIAL/AMP(20MG/ML) INFIL ONE (14:10)
[2024-05-20] MEDS ORDERED: ONDANSETRON INJ 2 MG/ML 2 ML VIAL ONE (14:10)
[2024-05-20] MEDS ORDERED: DEXAMETHASONE SOD INJ 4 MG/ML VIAL ONE (14:10)
[2024-05-20] MEDS ORDERED: diphenhydrAMINE 50 MG/ML VIAL ONE (14:10)
--- NOTE | 2024-05-20 14:13 | History & Physical Bridge Note ---
Date of Service May 20, 2024 History & Physical Bridge Note I have examined the patient, reviewed the History & Physical and in the interval since the performance of the History & Physical I have noted the following changes of clinical significance: no changes noted
--- NOTE | 2024-05-20 15:44 | Post Operative Brief Note ---
Immediate Post Op Note Date of Surgery May 20, 2024 Pre & Post Diagnosis Operation Date: 05/20/24 12:15 Pre-Op Diagnosis: Right Knee Septic prepatellar Bursa, pre-existing chronic prepatellar bursitis Post-Op Diagnosis: Right Knee Septic prepatellar Bursa, pre-existing chronic prepatellar bursitis I identified the patient and participated in the time-out.: Yes Procedure Operation Date: 05/20/24 12:15 Actual Procedures p Right Knee prepatellar Bursa Incision and Drainage, irrigation debridement, bu rsectomy prepatellar bursa, closure over Conchita drain.- Francois Alfonso MD Surgeon Francois Alfonso MD Inside Trucker None Estimated Blood Loss 3 Findings Consistent with Post-Op Diagnosis Specimens Bursa tissue for culture Drains Conchita Drain Anesthesia Type General Complications none Disposition Disposition: Recovery Room Overlapping Procedure I was immediately available: during the entire case.
--- NOTE | 2024-05-20 15:55 | Operative Report ---
Post Operative Report Pre & Post Diagnosis Operation Date: 05/20/24 12:15 Pre-Op Diagnosis: Right Knee Septic prepatellar bursitis with sinus tract, chronic pre-existing prepatellar bursitis. Acute cellulitis right leg. Post-Op Diagnosis: Right Knee Septic Pre Patella Bursa with sinus tract, chronic pre-existing prepatellar bursitis. Acute cellulitis right leg I identified the patient and participated in the time-out.: Yes Procedure Operation Date: 05/20/24 12:15 Actual Procedures Right Knee incision drainage, irrigation debridement sinus tract and prepatellar bursa with prepatellar bursectomy and closure over [place] drain.- Francois Alfonso MD Surgeon Francois Alfonso MD Records Officer None Estimated Blood Loss 3 Findings Consistent with Post-Op Diagnosis Specimens Bursa tissue for culture and evaluation Drains 1 Conchita quarter-inch Anesthesia Type General Complications none Disposition Disposition: Recovery Room Indications 63 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 This was draining pus and he sought medical care had cultures demonstrating MRSA now he has developed cellulitis around that area and spreading up the medial leg and down the pretibial area. Description of Procedure Patient was placed under general anesthetic placed spine on the operating table. Right lower extremity was prepped and draped in sterile fashion. A tourniquet was placed about the right upper thigh. Right knee exam demonstrated prepatellar bursal fluid collection and when this was expressed it came out the sinus tract consistent with this being in continuity. There was some surrounding cellulitis around the knee anteriorly up the medial knee and down the pretibial area. There was no knee joint effusion. Leg was sterilely prepped and draped with Betadine scrub and paint. Leg was elevated and the pneumatic tourniquet raised to 325 mmHg. Hemostat was placed into the sinus tract which communicated with the prepatellar bursa some cloudy fluid was evacuated and then I irrigated the sinus tract with pulsatile saline solution. After that we went ahead and made a longitudinal incision from the infra pole patella down to the tibial tubercle. The skin was incised through the subcutaneous tissues and deep thick layer of chronic prepatellar bursa upon entering the prepatellar bursa the bursa tissue within the bursa sac was fibrinous and suggestive of infection there. The prepatellar bursa was irrigated with pulsatile saline solution for a total of 3 L and then we went ahead and used tenotomy scissors and some send rakes to retract the skin flaps and separate the subcutaneous tissues from the bursa and resect the chronically inflamed bursal tissue first on the medial side than the lateral side. The sinus tract was debrided. Further irrigation performed with pulsatile saline solution followed by Betadine soak with diluted Betadine solution. This was soaked with 3 minutes and irrigated with the final Betadine solution then followed by further irrigation for total of 9 L of irrigation to the wound. A Conchita drain 1/4 inch was placed through the sinus tract into the bursa cavity and then the skin was closed with interrupted 2-0 nylon vertical mattress sutures and Xeroform dressings and gauze dressings and ABDs were applied and compressive wrap with Webril and Kevin wrap was applied. Tourniquet was let down patient good capillary fill to extremity and tolerated the procedure well. I attest to the content of the Intraoperative Record and any orders documented therein. Any exceptions are noted below.
[2024-05-20] MEDS ORDERED: ALUMINUM/MAGNESIUM SUSP 30 ML UDC PO PRN (16:03)
--- NOTE | 2024-05-20 16:10 | Anesthesiology Progress Note ---
Date of Service May 20, 2024 Anesthesia Post Procedure Vital Signs Vital Signs: Temp Pulse Pulse Resp BP Pulse Ox O2 Del Method 05/20/24 16:00 79 13 126/78 96 Room Air 05/20/24 15:50 84 15 129/76 100 Oxymask 05/20/24 15:43 36.0 C L 90 14 138/90 98 Oxymask 05/20/24 10:48 36.5 C 86 20 132/74 Room Air O2 Flow Rate 05/20/24 16:00 05/20/24 15:50 10 05/20/24 15:43 10 05/20/24 10:48 Pain Intensity Right Knee: Pain Intensity: 6 Transfer of Care Handoff Completed per policy Notes Mental Status: alert / awake / arousable and participated in evaluation Patient Amnestic to Procedure: Yes Nausea / Vomiting: adequately controlled Pain: adequately controlled Airway Patency, RR, SpO2: stable & adequate BP & HR: stable & adequate Hydration State: stable & adequate Anesthetic Complications: no major complications apparent
[2024-05-20] MEDS ORDERED: HYDROmorphone INJ 0.5 MG/0.5 ML SYR IV PRN (16:24)
[2024-05-20] MEDS: KETOROLAC 30 MG/ML VIAL IV PRN (16:39)
[2024-05-20] MEDS ORDERED: VANCOMYCIN CONSULT ACTIVE PRN ×2 (16:40→17:28)
--- NOTE | 2024-05-20 17:05 | Pharmacy Report ---
Pharmacy PK ABX Note - Date of Service May 20, 2024 - Assessment and Plan Microbiology 05/17/24 15:53 Knee,Right Gram Stain - Final 05/17/24 15:53 Knee,Right Aerobic and Anaerobic Culture - Preliminary Staph aureus MRSA Haemophilus parainfluenzae Assessment 63 year old M receiving IV Vancomycin for treatment of Septic prepatellar bursitis of right knee, s/p I&D. Pertinent microbiologic data include: MRSA in knee culture 05/17, repeat 05/20. Day # 1 of antimicrobial therapy. Plan Vancomycin * Loading dose: 1500 mg IV x 1 given preop today at 1111 * Maintenance dose: 1250 mg IV every 12 hours * Regimen is predicted to achieve target AUC/YULY of 400-600 mg/L.hr * Random level ordered for: 05/21/24 @ 1200 Pharmacy will continue to follow and will adjust dose/frequency as necessary. Thank you. Pharmacy has transitioned to AUC monitoring for vancomycin. AUC/YULY is the preferred PK/PD target and is associated with decreased risk of nephrotoxicity compared to traditional trough targets.
[2024-05-20] MEDS: VANCOMYCIN HCL 1,250 MG in SODIUM CHLORIDE 0.9% 250 ML IV SCH (18:29)
[2024-05-20 20:16] LABS: Basophils # (auto) 0.03 K/uL (0.00-0.20); Basophils % (auto) 0.5 %; Eosinophils # (auto) 0.02 K/uL (0.00-0.50); Eosinophils % (auto) 0.3 %; Hematocrit (blood only) 33.4 % (42.0-52.0); Hemoglobin 10.9 g/dl (14.0-18.0); Immature Granulocytes # (auto) 0.02 K/uL (0.01-0.20); Immature Granulocytes % (auto) 0.3 %; Lymphocytes # (auto) 0.96 K/uL (1.20-3.40); Lymphocytes % (auto) 15.3 %; Mean Corpuscular Hemoglobin 27.4 pg (25.0-34.0); Mean Corpuscular Hgb Conc 32.6 g/dL (32.0-36.0); Mean Corpuscular Volume 83.9 fL (80.0-100.0); Mean Platelet Volume 10.3 fL (9.4-12.4); Monocytes # (auto) 0.18 K/uL (0.11-0.59); Monocytes % (auto) 2.9 %; Neutrophils # (auto) 5.06 K/uL (1.40-6.50); Neutrophils % (auto) 80.7 %; Platelet Count 240 K/uL (130-400); RDW Coefficient of Variation 13.8 % (11.5-14.5); RDW Standard Deviation 42.4 fL (36.4-46.3); Red Blood Count 3.98 M/uL (4.70-6.10); White Blood Count 6.27 K/ul (4.8-10.8)
[2024-05-20] MEDS: DOCUSATE SODIUM 100 MG CAP PO SCH (20:27)
[2024-05-20] MEDS: carvediloL 3.125 MG TAB PO SCH (20:28)
[2024-05-20 20:31] LABS: BUN Creatinine Ratio 15.5 (10-20); Calcium 8.8 mg/dl (8.6-10.3); Creatinine Clr Calc Pharmacy 95.9 ml/min; Est GFR (African American) 96.6 ml/min; Est GFR (Non-African American) 83.3 ml/min; Potassium 4.9 mmol/L (3.5-5.1)
[2024-05-20] MEDS ORDERED: SULFAMETHOXAZOLE/TRIMETHOPRIM DS 800/160MG TAB PO SCH (21:00)
--- NOTE | 2024-05-20 21:05 | Consultation ---
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 See addendum Supervising Physician Co-Signing Physician Notes IM ATTENDING : Patient seen and examined. History obtained from patient and records. Concur with salient points upon review of preceding documentation by Ms. Shari Aguiar PA-C. I take responsibility for plan of care below. Final Assessment and Recommendations as follows : Septic bursitis right knee Status post surgery MRSA on CS Patient clinically well Chronic systolic heart failure secondary to idiopathic cardiomyopathy (EF 45 to 49%, TTE 2022), patient on the dry side Valvular heart disease (mild /mild AR) Mild CAD as per records Hypertension, BP on the lower side Borderline hyperkalemia Postop anemia, hemoglobin drop from baseline PUD, stable on regimen Prediabetes, hemoglobin A1c of 6.2 this month Past tobacco abuse Continue vancomycin until ID input in IVF, hold home lisinopril for now given borderline hypotension and borderline hyperkalemia Avoid NSAIDs given borderline hyperkalemia Follow H&H, transfuse PRBC if hemoglobin less than 8 and or for symptomatic anemia DVT prophylaxis. SCDs as per postop orders Thank you very much for this consultation. Dr. Carrera will follow patient's progress. Text document was generated using [employer]ev[employer] voice recognition software. It may contain grammatical or spelling errors. Kindly contact undersigned for clarification of any documentation item in question. History of Present Illness Requesting Physician: Dr Alfonso Reason for Consultation: Post op medical management Attending Physician: Francois Alfonso MD History of Present Illness * Patient is 63-year-old male with PMH HTN, dyslipidemia, cardiomyopathy, history of kidney stones seen in medical consultation s/p I&D right knee for septic prepatellar bursitis today by Dr. Alfonso. Per chart review 05/14/2024 patient had seen PCP for right knee swelling had negative Doppler for DVT and was started on Keflex. Seen in ER on 05/17/2024 and was discharged on Augmentin and Bactrim with follow-up with Ortho. Per review cultures +MRSA. Today had I&D right knee. Post op patient reports having some right knee discomfort but states feels similar to the pain experienced for past week. Denies nausea or vomiting. Ate dinner without difficulty. Denies fever/chills, diaphoresis, N/V/D/C, RUIZ, dizziness, CP, SOB, orthopnea, palpitations, cough, rhinorrhea, abdominal pain, paresthesias, weakness, rashes, urinary symptoms. Allergies Allergy/AdvReac Type Severity Reaction Status Date / Time atorvastatin [From Lipitor] AdvReac Intermediate MUSCLE Verified 05/20/24 11:15 ACHES simvastatin [From Zocor] AdvReac Intermediate MUSCLE Verified 05/20/24 11:15 ACHES Home Medications Medication Instructions Recorded Confirmed Type aspirin 81 mg tablet,delayed 81 mg PO QAM 11/16/18 05/20/24 History release (Aspir-) carvedilol 3.125 mg tablet 3.125 mg PO BID 11/16/18 05/20/24 History fenofibrate nanocrystallized 145 145 mg PO QAM 11/16/18 05/20/24 History mg tablet lisinopril 10 mg tablet 10 mg PO QAM 11/16/18 05/20/24 History omega 2-apl-kvi-fish oil 1,000 mg 1,000 mg PO QAM 11/16/18 05/20/24 History (120 mg-180 mg) capsule (Fish Oil) rosuvastatin 5 mg tablet 20 mg PO QAM 11/16/18 05/20/24 History Vitamin D3 1 dose PO QAM 02/03/24 05/20/24 History amoxicillin 875 mg-potassium 1 tab PO BID #20 tabs 05/17/24 05/20/24 Rx clavulanate 125 mg tablet sulfamethoxazole 800 1 tab PO BID 10 days #20 tabs 05/17/24 05/20/24 Rx mg-trimethoprim 160 mg tablet (Bactrim DS) ibuprofen 800 mg tablet 800 mg PO QAM 05/19/24 05/20/24 History multivitamin 1 tab PO QAM 05/19/24 05/20/24 History Vitamin C 1 tab PO DAILY 05/20/24 05/20/24 History Patient History Medical History 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 "with return to near normal LV systolic function" per cardio records EF 40-49% per 04/2023 ECHO Peptic ulcer disease No recent issues History of kidney stones Prepatellar bursitis Currently MRSA infection HTN (hypertension) HLD (hyperlipidemia) Pneumonia hx 01/2024--hospitalized @ [facility] symptoms completely resolved Aortic stenosis Mild per 04/2023 ECHO Diabetes per pt prediabetes--no meds CAD (coronary artery disease) Diagnostic cardiac catheterization in 2002 and 2011, with mild coronary ath erosclerosis without obstruction.--follows with Dr. 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 cardiomyopathy" Surgical History S/P cystoscopy with ureteral stent placement 02-11-24 @ [facility] History of repair of left rotator cuff x2 History of repair of right rotator cuff x4 History of cystoscopy History of cardiac catheterization "15-20" years ago - no stent History of carpal tunnel surgery of right wrist History of colonoscopy History of back surgery multiple Family History Other Diabetes Heart disease No family history of adverse response to anesthesia Social History Smoking Status: Never smoker Tobacco Type: Cigarettes Smoking End Date: quit 20yrs ago; Second Hand Exposure: No; Do You Dip or Chew Tobacco: No; Tobacco Cessation Education Requested by Patient: No Hx Alcohol Use: No Hx Substance Use: No Preferred Language: Tajik Communication Ability: Effective Site Promotion Agent Required: No Beliefs That Will Affect Care: None Current Living Situation: Spouse Other Information That Helps Us Care for You: No Feels Safe at Home: Yes Safety Concerns: Feels Safe At This Time Assistive Devices: Glasses Review of Systems Review of Systems: All systems reviewed & are unremarkable except as noted in HPI & below Physical Exam Physical Exam: General: no distress, WDWN Head: normocephalic, atraumatic Eyes: conjunctiva non-injected, anicteric ENT: normal inspection external ears, nose, mucous membranes moist Neck: supple, trachea midline Lungs: clear, no respiratory distress, no wheezing/rhonchi/rales CV: RRR, + murmur, no pretibial edema noted to LLE Abd: normal BS, soft, non-tender Ext: RLE: +GAVIN wrap and surgical dressing in place, distal pulses palpable. LLE: no cyanosis, no eythema, no calf tenderness Neuro: A&O x 3, no focal deficits noted, normal affect Skin: warm, dry Results & Data Vital Signs (Past 12 Hours) Vital Signs Temp Pulse Pulse Resp BP BP Pulse Ox 05/20/24 20:48 36.8 C 77 18 105/63 93 05/20/24 19:55 36.8 C 80 16 109/65 93 05/20/24 19:03 36.6 C 77 16 109/65 94 05/20/24 18:30 36.5 C 82 16 120/71 95 05/20/24 18:00 36.4 C L 88 16 116/68 96 05/20/24 17:30 77 16 125/72 96 05/20/24 16:55 77 17 138/77 96 05/20/24 16:40 77 16 130/81 96 05/20/24 16:25 85 17 133/74 96 05/20/24 16:10 36.5 C 82 15 131/76 96 05/20/24 16:00 79 13 126/78 96 05/20/24 15:50 84 15 129/76 100 05/20/24 15:43 36.0 C L 90 14 138/90 98 05/20/24 10:48 36.5 C 86 20 132/74 O2 Del Method O2 Flow Rate 05/20/24 20:48 Room Air 05/20/24 19:55 Room Air 05/20/24 19:03 Room Air 05/20/24 18:30 Room Air 05/20/24 18:00 Room Air 05/20/24 17:30 Room Air 05/20/24 16:55 Room Air 05/20/24 16:40 Room Air 05/20/24 16:25 Room Air 05/20/24 16:10 Room Air 05/20/24 16:00 Room Air 05/20/24 15:50 Oxymask 05/20/24 15:43 Oxymask 10 05/20/24 10:48 Room Air Laboratory Results Short CBC 05/20/24 Range/Units 19:53 WBC 6.27 (4.8-10.8) K/ul Hgb 10.9 L (14.0-18.0) g/dl Hct 33.4 L (42.0-52.0) % Plt Count 240 (130-400) K/uL BMP 05/20/24 19:53 Sodium 134 L Potassium 4.9 Chloride 104 Carbon Dioxide 24 BUN 15 Creatinine 0.97 Glucose 125 H Calcium 8.8
[2024-05-20] MEDS: SODIUM CHLORIDE 0.9% 1,000 ML IV ONE (21:47)
[2024-05-21] MEDS ORDERED: VANCOMYCIN HCL 1,000 MG/270 ML BAG IV SCH (06:00)
[2024-05-21 06:30] LABS: Basophils # (auto) 0.02 K/uL (0.00-0.20); Basophils % (auto) 0.3 %; Eosinophils # (auto) 0.02 K/uL (0.00-0.50); Eosinophils % (auto) 0.3 %; Hematocrit (blood only) 33.2 % (42.0-52.0); Hemoglobin 10.6 g/dl (14.0-18.0); Immature Granulocytes # (auto) 0.03 K/uL (0.01-0.20); Immature Granulocytes % (auto) 0.4 %; Lymphocytes # (auto) 1.29 K/uL (1.20-3.40); Lymphocytes % (auto) 17.8 %; Mean Corpuscular Hemoglobin 26.8 pg (25.0-34.0); Mean Corpuscular Hgb Conc 31.9 g/dL (32.0-36.0); Mean Corpuscular Volume 84.1 fL (80.0-100.0); Mean Platelet Volume 10.5 fL (9.4-12.4); Monocytes # (auto) 0.51 K/uL (0.11-0.59); Neutrophils # (auto) 5.39 K/uL (1.40-6.50); Neutrophils % (auto) 74.2 %; Platelet Count 260 K/uL (130-400); RDW Coefficient of Variation 13.5 % (11.5-14.5); RDW Standard Deviation 41.8 fL (36.4-46.3); Red Blood Count 3.95 M/uL (4.70-6.10); White Blood Count 7.26 K/ul (4.8-10.8)
[2024-05-21 06:36] LABS: BUN Creatinine Ratio 17.9 (10-20); Calcium 8.4 mg/dl (8.6-10.3); Creatinine Clr Calc Pharmacy 97.9 ml/min; Est GFR (Non-African American) 85.4 ml/min; Potassium 4.5 mmol/L (3.5-5.1)
--- NOTE | 2024-05-21 07:09 | Hospitalist Progress Note ---
Date of Service May 21, 2024 Assessment & Plan (1) Septic prepatellar bursitis of right knee: (2) Status post incision and drainage: Plan: Post op day# 1S/P I&D right knee for septic bursitis by Dr Alfonso Pain management per ortho Wound management per ortho PT/OT as appropriate DVT prophylaxis per ortho Incentive spirometry Monitor H&H for acute blood loss anemia; pre-op Hgb: 11.9 Hgb stable +MRSA culture on 05/17/24 Continue IV Vancomycin ID consult pending for dispo planning/abx course (3) HTN (hypertension): Plan: Stable Continue carvedilol, lisinopril (4) Dyslipidemia: Plan: Continue rosuvastatin (5) 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: Plan: 05/17/2023 echo: EF 45-49% Aspirin resumed Continue carvedilol rosuvastatin Appears euvolemic DVT Prophylaxis SCD Disposition per primary team Follows with Dr Soler for routine care Admission and Anticipated Discharge Date Admission Date: May 20, 2024 Subjective NAEO Reports feeling well overall, reports mild discomfort anticipated with post op pain Denies any fevers, chills sob or other acute concerns Physical Exam Constitutional: WD/WN, vitals as above Respiratory: normal respiratory effort, lungs clear to auscultation Cardiovascular: RRR, no murmur, no edema Gastrointestinal (Abdomen): normal bowel sounds, soft, nontender, no hepatosplenomegaly Musculoskeletal: right knee with GAVIN bandage in place, CDI Results & Data Results & Data Vital Signs (Past 12 Hours) Vital Signs Temp Pulse Resp BP Pulse Ox O2 Del Method 05/21/24 02:47 36.4 C L 72 16 109/65 95 Room Air 05/20/24 22:14 36.8 C 72 18 109/64 94 Room Air 05/20/24 20:48 36.8 C 77 18 105/63 93 Room Air 05/20/24 19:55 36.8 C 80 16 109/65 93 Room Air Laboratory Results Short CBC 05/20/24 05/21/24 Range/Units 19:53 05:41 WBC 6.27 7.26 (4.8-10.8) K/ul Hgb 10.9 L 10.6 L (14.0-18.0) g/dl Hct 33.4 L 33.2 L (42.0-52.0) % Plt Count 240 260 (130-400) K/uL BMP 05/20/24 05/21/24 19:53 05:41 Sodium 134 L 135 L Potassium 4.9 4.5 Chloride 104 105 Carbon Dioxide 24 24 BUN 15 17 Creatinine 0.97 0.95 Glucose 125 H 136 H Calcium 8.8 8.4 L Medications Administered Home Medications Medication Instructions Recorded Confirmed Last Taken aspirin 81 mg tablet,delayed 81 mg PO [facility] 11/16/18 05/20/24 05/19/24 05:30 release (Aspir-) carvedilol 3.125 mg tablet 3.125 mg PO BID 11/16/18 05/20/24 05/19/24 18:00 fenofibrate nanocrystallized 145 145 mg PO [facility] 11/16/18 05/20/24 05/20/24 05:30 mg tablet lisinopril 10 mg tablet 10 mg PO [facility] 11/16/18 05/20/24 05/19/24 05:30 omega 2-wel-jlt-fish oil 1,000 mg 1,000 mg PO [facility] 11/16/18 05/20/24 05/19/24 05:30 (120 mg-180 mg) capsule (Fish Oil) rosuvastatin 5 mg tablet 20 mg PO [facility] 11/16/18 05/20/24 05/20/24 05:30 Vitamin D3 1 dose PO [facility] 02/03/24 05/20/24 05/19/24 05:30 amoxicillin 875 mg-potassium 1 tab PO BID #20 tabs 05/17/24 05/20/24 05/20/24 05:30 clavulanate 125 mg tablet sulfamethoxazole 800 1 tab PO BID 10 days #20 tabs 05/17/24 05/20/24 05/20/24 05:30 mg-trimethoprim 160 mg tablet (Bactrim DS) ibuprofen 800 mg tablet 800 mg PO [facility] 05/19/24 05/20/24 05/19/24 05:30 multivitamin 1 tab PO QAM 05/19/24 05/20/24 05/19/24 05:30 Vitamin C 1 tab PO DAILY 05/20/24 05/20/24 05/11/24 Active Medications Generic Name Dose Route Start Last Admin Trade Name Freq PRN Reason Stop Dose Admin Aspirin 325 mg 05/21/24 09:30 05/21/24 10:16 Aspirin 325 Mg Ectab PO 06/20/24 09:29 325 mg QAM LAISHA Administration Carvedilol 3.125 mg 05/21/24 09:00 05/21/24 08:43 Carvedilol 3.125 Mg Tab PO 06/20/24 08:59 3.125 mg BID LAISHA Administration Docusate Sodium 100 mg 05/20/24 21:00 05/21/24 08:43 Docusate Sodium 100 Mg Cap PO 06/19/24 20:59 100 mg BID LAISHA Administration Fenofibrate 145 mg 05/21/24 09:00 05/21/24 08:43 Fenofibrate Nanocrystallized 145 Mg Tablet PO 06/20/24 08:59 145 mg QAM LAISHA Administration Ketorolac Tromethamine 30 mg 05/20/24 16:03 05/20/24 16:39 Ketorolac 30 Mg/Ml Vial IV 05/25/24 16:02 30 mg Q6H PRN Administration Pain Lisinopril 10 mg 05/21/24 09:00 05/21/24 08:43 Lisinopril 10 Mg Tab PO 06/20/24 08:59 10 mg QAM LAISHA Administration Multivitamins 1 tab 05/21/24 09:00 05/21/24 08:43 Multivitamin Tab PO 06/20/24 08:59 1 tab QAM LAISHA Administration Rosuvastatin Calcium 20 mg 05/21/24 09:00 05/21/24 08:43 Rosuvastatin Calcium 20 Mg Tab PO 06/20/24 08:59 20 mg QAM LAISHA Administration
--- NOTE | 2024-05-21 08:22 | Orthopedic Progress Note ---
Date of Service May 21, 2024 Assessment & Plan (1) Septic prepatellar bursitis of right knee: Plan: Postop day 1 status post I&D bursectomy prepatellar bursa placement of a drain. Plan is to do a dressing change pull the drain tomorrow and do daily dressing changes until the drainage stops. Await ID consult for post discharge antibiotic plan. Continue IV vancomycin for now. Admission and Anticipated Discharge Date Admission Date: May 20, 2024 Subjective Pain under control doing well no fever or chills. Review of Systems Review of Systems: No fever or chills feels well Physical Exam Physical Exam: Dressing dry and intact circulation sensorimotor exam intact. Independent straight leg raise. Results & Data Vital Signs (Past 12 Hours) Vital Signs Temp Pulse Resp BP Pulse Ox O2 Del Method 05/21/24 07:22 36.7 C 62 16 114/72 96 Room Air 05/21/24 02:47 36.4 C L 72 16 109/65 95 Room Air 05/20/24 22:14 36.8 C 72 18 109/64 94 Room Air 05/20/24 20:48 36.8 C 77 18 105/63 93 Room Air Laboratory Results IntraOp culture pending. Prior wound culture growing MRSA sensitive to vancomycin and Bactrim and daptomycin
[2024-05-21] MEDS: lisinopril 10 MG TAB PO SCH (08:43)
[2024-05-21] MEDS: carvediloL 3.125 MG TAB PO SCH (08:43)
[2024-05-21] MEDS: FENOFIBRATE NANOCRYSTALLIZED 145 MG TABLET PO SCH (08:43)
[2024-05-21] MEDS: MULTIVITAMIN TAB PO SCH (08:43)
[2024-05-21] MEDS: ROSUVASTATIN CALCIUM 20 MG TAB PO SCH (08:43)
[2024-05-21] MEDS ORDERED: IBUPROFEN 800 MG TAB PO SCH (09:00)
[2024-05-21] MEDS: ASPIRIN 325 MG ECTAB PO SCH (10:16)
--- NOTE | 2024-05-21 13:01 | Pharmacy Report ---
Pharmacy PK ABX Note - Date of Service May 21, 2024 - Assessment and Plan Microbiology 05/17/24 15:53 Knee,Right Gram Stain - Final 05/17/24 15:53 Knee,Right Aerobic and Anaerobic Culture - Preliminary Staph aureus MRSA Haemophilus parainfluenzae Assessment 05/21: * Day #2 of Vancomycin. * Repeat knee culture growing staph species, likely MRSA same as previous culture on 05/17. Previous culture showed YULY of 2 to Vanc. * Level today was 11 which was therapeutic but on the lower side of the AUC/YULY goal range of 400-600. Given staph species growing in new culture already and YULY of 2, electing to empirically increase Vanco dose to target an AUC/YULY of >500. 05/20: 63 year old M receiving IV Vancomycin for treatment of Septic prepatellar bursitis of right knee, s/p I&D. Pertinent microbiologic data include: MRSA in knee culture 05/17, repeat 05/20. Day # 1 of antimicrobial therapy. Plan Vancomycin * Current regimen: 1250 mg IV every 12 hours * Random level obtained 05/21/24 resulted as 11 mcg/mL. This is predicted to achieve target AUC/YULY of 400-600 mg/L.hr. However, electing to empirically increase dose to target an AUC/YULY >500 for reasons listed in assessment above. * Change to 1500 mg IV every 12 hours. Predicted AUC at steady state: 528 mg/L.hr * Repeat trough level ordered for: 05/23/24 Pharmacy will continue to follow and will adjust dose/frequency as necessary. Thank you. Pharmacy has transitioned to AUC monitoring for vancomycin. AUC/YULY is the preferred PK/PD target and is associated with decreased risk of nephrotoxicity compared to traditional trough targets.
[2024-05-21] MEDS: oxyCODONE/ACETAMINOPHEN 5mg/325mg TAB PO PRN (16:20)
[2024-05-21] MEDS: VANCOMYCIN HCL 1,500 MG in SODIUM CHLORIDE 0.9% 500 ML IV SCH (18:34)
[2024-05-22 07:05] LABS: Creatinine Clr Calc Pharmacy 86.9 ml/min; Est GFR (African American) 85.8 ml/min
--- NOTE | 2024-05-22 08:01 | Orthopedic Progress Note ---
Date of Service May 22, 2024 Assessment & Plan (1) Septic prepatellar bursitis of right knee: Plan: Condition improved. Finish current dose of IV vancomycin and will discharge home on p.o. antibiotics for at least a week to 2 weeks depending on response. Will adjust antibiotics if needed as outpatient when final cultures are completed. Will discharge home on Bactrim. Will have him take his baby aspirin 81 mg twice daily. Will have him wear a GAIL hose below the Kevin wrap on the right leg. Gradually increase activity. Admission and Anticipated Discharge Date Admission Date: May 20, 2024 Subjective Reports feeling well overall, reports mild discomfort anticipated with post op pain Denies any fevers, chills sob or other acute concerns Physical Exam Physical Exam: Incision without erythema and closure intact. Small amount of bloody drainage out of drain site after drain being removed only. No fluid in the prepatellar bursa. Erythema around the leg has resolved and swelling in the lower leg also resolved. Results & Data Vital Signs (Past 12 Hours) Vital Signs Temp Pulse Resp BP Pulse Ox O2 Del Method 05/22/24 07:14 36.6 C 60 16 117/74 97 Room Air 05/21/24 20:06 36.3 C L 68 16 104/57 L 95 Room Air Laboratory Results Intraoperative cultures growing Staphylococcus species final sensitivities pending
[2024-05-23] MEDS ORDERED: VANCOMYCIN LEVEL ONE (05:00)
== END 2024-05-22 10:09 | disposition home or self-care (01) | DRG 501 ==
LOC: ASU 10:24 → PACUINP 16:05 → 3N 18:27
DX: I11.0 Hypertensive heart disease with heart failure; Z88.2 Allergy status to sulfonamides; Z87.442 Personal history of urinary calculi; E11.9 Type 2 diabetes mellitus without complications; B95.62 Methicillin resistant Staphylococcus aureus infection as the cause of diseases classified elsewhere; I25.10 Atherosclerotic heart disease of native coronary artery without angina pectoris; L03.115 Cellulitis of right lower limb; I50.20 Unspecified systolic (congestive) heart failure; I42.9 Cardiomyopathy, unspecified; D64.9 Anemia, unspecified; E78.5 Hyperlipidemia, unspecified; M71.161 Other infective bursitis, right knee; Z79.82 Long term (current) use of aspirin